=== PATIENT | female | born 1955 | race Caucasian/White ===

== ENCOUNTER → 2016-09-20 | Outpatient (CLI) | payer MEDICARE, OTHER ==
[2016-09-20 08:33] LABS: Basophils # (A) 0.1 k/uL (0-0.2); Basophils % (A) 1 %; CH 31.2; CHCM 32.4; Eosinophils # (A) 0.6 k/uL (0-0.7); Eosinophils % (A) 10 %; HCT 40.9 % (34.0-46.0); HDW 1.98; HGB 13.2 gm/dL (11.4-16.0); Luc # (Auto) 0.28; Luc % (Auto) 4; Lymphocytes # (A) 1.6 k/uL (1.0-4.8); Lymphocytes % (A) 24 %; MCH 31.2 pg (25.0-35.0); MCHC 32.3 g/dL (31.0-37.0); MCV 96.6 fL (80.0-100.0); Mean Platelet Volume 8.3; Monocytes # (A) 0.6 k/uL (0-1.0); Monocytes % (A) 10 %; Neutrophils # (A) 3.4 k/uL (1.3-7.7); Neutrophils % (A) 51 %; RBC 4.23 m/uL (3.80-5.40); RDW 12.3 % (11.5-15.5); WBC 6.6 k/uL (3.8-10.6); WBC (Perox) 6.64
[2016-09-20 11:15] LABS: ALT 29 U/L (9-52); AST 31 U/L (14-36); Alkaline Phosphatase 96 U/L (38-126); Anion Gap 13 mmol/L; Blood Urea Nitrogen 15 mg/dL (7-17); Calcium 9.7 mg/dL (8.4-10.2); Carbon Dioxide 29 mmol/L (22-30); Chloride 97 mmol/L (98-107); Glucose 77 mg/dL (74-99); Non-African American GFR(MDRD) >60 (>60 ml/min/1.73 sqM); Potassium 4.7 mmol/L (3.5-5.1); Sodium 139 mmol/L (137-145); Total Bilirubin 0.3 mg/dL (0.2-1.3); Total Protein 7.3 g/dL (6.3-8.2)
== END | disposition home or self-care (01) ==
LOC: LABWHC1 07:42
PROVIDERS: ATTEND Family Medicine
DX: E03.9 Hypothyroidism, unspecified (principal); E55.9 Vitamin D deficiency, unspecified; R56.9 Unspecified convulsions
CPT/HCPCS: 36415; 80053; 80156; 82306; 84439; 84443; 85025

== ENCOUNTER → 2016-10-06 | Outpatient (CLI) | payer MEDICARE, OTHER | LOC: LABWHC1 07:55 | PROVIDERS: ATTEND Psychiatry & Neurology Neurology | DX: G40.909 Epilepsy, unspecified, not intractable, without status epilepticus (principal) | CPT/HCPCS: 36415; 80156; 80177 ==

== ENCOUNTER → 2017-03-31 | Outpatient (CLI) | payer MEDICARE, OTHER ==
[2017-03-31 08:16] LABS: CH 31.2; CHCM 32.1; HCT 36.4 % (34.0-46.0); HDW 1.95; HGB 12.9 gm/dL (11.4-16.0); MCH 34.7 pg (25.0-35.0); MCHC 35.5 g/dL (31.0-37.0); MCV 97.7 fL (80.0-100.0); Mean Platelet Volume 7.2; RBC 3.72 m/uL (3.80-5.40); RDW 12.5 % (11.5-15.5); WBC 9.1 k/uL (3.8-10.6)
[2017-03-31 09:07] LABS: ALT 44 U/L (9-52); AST 30 U/L (14-36); Alkaline Phosphatase 113 U/L (38-126); Anion Gap 11 mmol/L; Blood Urea Nitrogen 18 mg/dL (7-17); Calcium 9.7 mg/dL (8.4-10.2); Carbamazepine (Tegretol) 11.8 ug/mL; Carbon Dioxide 27 mmol/L (22-30); Chloride 100 mmol/L (98-107); Cholesterol 224 mg/dL (<200); Glucose 77 mg/dL (74-99); HDL Cholesterol 79 mg/dL (40-60); Non-African American GFR(MDRD) >60 (>60 ml/min/1.73 sqM); Potassium 4.4 mmol/L (3.5-5.1); Sodium 138 mmol/L (137-145); Total Bilirubin 0.3 mg/dL (0.2-1.3); Total Protein 7.5 g/dL (6.3-8.2)
== END | disposition home or self-care (01) ==
LOC: LABWHC1 07:44
PROVIDERS: ATTEND Family Medicine
DX: Z00.01 Encounter for general adult medical examination with abnormal findings (principal); G40.909 Epilepsy, unspecified, not intractable, without status epilepticus
CPT/HCPCS: 36415; 80053; 80061; 80156; 80177; 82306; 85027

== ENCOUNTER → 2017-04-14 | Outpatient (CLI) | payer MEDICARE, OTHER ==
--- NOTE | 2017-04-14 11:29 | FL ---
EXAMINATION TYPE: FL barium swallow w video DATE OF EXAM: 04/14/2017 COMPARISON: NONE HISTORY: Dysphasia TECHNIQUE: Fluoroscopy. FINDINGS: Fluoroscopic guidance was provided for the procedure performed in conjunction with the [facility] pathology department. Please see complete report forthcoming from the Speech Pathology departmen t. Various consistencies from thin liquid to solids were administered. Fluoroscopy time 37 seconds Number of images: 0. No aspiration or penetration was evident. No significant pooling was observed in the vallecula. There was marked chest since he present during the consistencies utilized including honey thick and p udding thick consistencies. IMPRESSION: 1. Hesitancy of avulsion. 2. Exam limited to honey thick and pudding thick consistencies.
== END | disposition home or self-care (01) ==
LOC: RADFLMAIN 10:50
PROVIDERS: ATTEND Family Medicine
DX: R13.12 Dysphagia, oropharyngeal phase (principal)
CPT/HCPCS: 74230

== ENCOUNTER → 2017-09-29 | Outpatient (CLI) | payer MEDICARE, OTHER ==
[2017-09-29 08:16] LABS: Basophils # (A) 0.1 k/uL (0-0.2); Basophils % (A) 1 %; Eosinophils # (A) 0.7 k/uL (0-0.7); Eosinophils % (A) 10 %; HGB 13.1 gm/dL (11.4-16.0); Lymphocytes # (A) 1.6 k/uL (1.0-4.8); Lymphocytes % (A) 24 %; MCH 29.9 pg (25.0-35.0); MCHC 32.7 g/dL (31.0-37.0); MCV 91.5 fL (80.0-100.0); Mean Platelet Volume 7.3; Monocytes # (A) 0.5 k/uL (0-1.0); Monocytes % (A) 7 %; Neutrophils # (A) 3.7 k/uL (1.3-7.7); Neutrophils % (A) 56 %; Platelet Count 255 k/uL (150-450); RBC 4.37 m/uL (3.80-5.40); RDW 12.6 % (11.5-15.5); WBC 6.6 k/uL (3.8-10.6)
[2017-09-29 08:55] LABS: ALT 20 U/L (9-52); AST 27 U/L (14-36); Alkaline Phosphatase 96 U/L (38-126); Anion Gap 8 mmol/L; Blood Urea Nitrogen 15 mg/dL (7-17); Calcium 9.6 mg/dL (8.4-10.2); Carbamazepine (Tegretol) 11.6 ug/mL; Carbon Dioxide 29 mmol/L (22-30); Chloride 99 mmol/L (98-107); Glucose 118 mg/dL (74-99); Potassium 4.2 mmol/L (3.5-5.1); Sodium 136 mmol/L (137-145); Total Bilirubin 0.2 mg/dL (0.2-1.3); Total Protein 6.9 g/dL (6.3-8.2)
[2017-09-29 09:08] LABS: T4, Free (Free Thyroxine) 0.83 ng/dL (0.78-2.19)
== END | disposition home or self-care (01) ==
LOC: LABWHC1 07:28
PROVIDERS: ATTEND Family Medicine
DX: E03.9 Hypothyroidism, unspecified (principal); E55.9 Vitamin D deficiency, unspecified; G40.909 Epilepsy, unspecified, not intractable, without status epilepticus
CPT/HCPCS: 36415; 80053; 80156; 82306; 84439; 84443; 85025

== ENCOUNTER 2017-11-12 13:57 | Emergency (ER) | payer MEDICARE ==
[2017-11-12 14:21] VITALS: TEMP 97.1
[2017-11-12] MEDS ORDERED: ALBUTEROL NEBULIZED 2.5 MG/3 ML INHALATION STA (14:42)
--- NOTE | 2017-11-12 14:47 | ED ---
URI HPI - General Chief Complaint: Upper Respiratory Infection Stated Complaint: Wheezing,Cough Time Seen by Provider: 11/12/17 14:23 Source: patient, Caregiver Mode of arrival: wheelchair Limitations: physical limitation - History of Present Illness Initial Comments: History is from both the patient and a caregiver. This patient is 62-year-old woman reportedly has history of asthma, presenting to be evaluated for wheezing. Patient has had to 3 days of cough and wheezing. Caregiver reports that they have use the albuterol at home, but patient continues to have some wheezing. There were concerned that she has had previous episodes of pneumonia. She has not registered a fever. Cough is not productive. The patient is denying pain or dyspnea. No change in bowel movements, nausea or vomiting. No changes in urination. Patient denies pain or swelling of the extremities MD Complaint: cough, other (Wheezing) Onset/Timin -: days(s) Severity: moderate Consistency: constant Improves With: nothing Worsens With: nothing Associated Symptoms: denies other symptoms Treatments Prior to Arrival: other (Albuterol) - Related Data Home Medications Medication Instructions Recorded Confirmed carBAMazepine [TEGretol XR] 100 mg PO Q12H 03/16/15 05/16/17 carBAMazepine [carBAMazepine XR] 400 mg PO Q12HR 03/16/15 05/16/17 Albuterol Nebulized [Ventolin 2.5 mg INHALATION RT-Q4H PRN 05/16/17 05/16/17 Nebulized] Budesonide [Pulmicort] 0.5 mg PO RT-BID 05/16/17 05/16/17 Calcium Citrate/Vitamin D3 1 tab PO DAILY 05/16/17 05/16/17 [Calcitrate + Vit D Caplet] Cholecalciferol [Vitamin D3] 400 unit PO DAILY 05/16/17 05/16/17 Levothyroxine Sodium [Synthroid] 75 mcg PO DAILY 05/16/17 05/16/17 Nystatin 100,000 Unit/gm Oint 1 applic TOPICAL BID 05/16/17 05/16/17 [Mycostatin Oint] Polyethylene Glycol 3350 [Miralax] 17 gm PO DAILY 05/16/17 05/16/17 Simplythick 15 Gm Oral Gel 1 dose PO DIRECTED 05/16/17 05/16/17 levETIRAcetam [Keppra] 500 mg PO Q12HR 05/16/17 05/16/17 metroNIDAZOLE 0.75% CREAM 1 applic TOPICAL BID 05/16/17 05/16/17 [Metrocream] Previous Rx's Medication Instructions Recorded Levofloxacin [Levaquin] 500 mg PO DAILY #5 tab 05/16/17 predniSONE 60 mg PO DAILY #30 tab 11/12/17 Allergies Allergy/AdvReac Type Severity Reaction Status Date / Time Penicillins Allergy Unknown Verified 11/12/17 14:21 Review of Systems ROS Statement: Those systems with pertinent positive or pertinent negative responses have been documented in the HPI. ROS Other: All systems not noted in ROS Statement are negative. Constitutional: Denies: fever ENT: Denies: throat pain Respiratory: Reports: cough, wheezes. Denies: dyspnea, hemoptysis Gastrointestinal: Denies: abdominal pain, vomiting, diarrhea Genitourinary: Denies: dysuria, hematuria Neurological: Denies: headache Past Medical History Past Medical History: Asthma, Dementia, Seizure Disorder Additional Past Medical History / Comment(s): mental retardation, quadriplegia History of Any Multi-Drug Resistant Organisms: None Reported Past Surgical History: No Surgical Hx Reported Past Psychological History: No Psychological Hx Reported Smoking Status: Never smoker Past Alcohol Use History: None Reported Past Drug Use History: None Reported General Exam Limitations: physical limitation General appearance: alert, in no apparent distress, other (Patient is a pleasant and interactive woman, does appear well-hydrated and nontoxic.) Head exam: Present: atraumatic ENT exam: Present: normal oropharynx, mucous membranes moist Respiratory exam: Present: wheezes, rhonchi, other (The patient has good air entry but does have a trace of expiratory wheeze and there are diffuse rhonchi) . Absent: respiratory distress, rales, stridor, accessory muscle use, decreased breath sounds, prolonged expiratory Cardiovascular Exam: Present: regular rate, normal rhythm, normal heart sounds. Absent: systolic murmur, diastolic murmur, rubs, gallop GI/Abdominal exam: Present: soft. Absent: tenderness, guarding Extremities exam: Present: normal inspection, normal capillary refill. Absent: pedal edema, calf tenderness Neurological exam: Present: alert Skin exam: Present: warm, dry, intact, normal color. Absent: rash Course Vital Signs 11/12/17 11/12/17 11/12/17 14:17 15:32 15:40 Temperature 97.1 F L Pulse Rate 75 69 72 Respiratory 22 Rate Blood Pressure 154/90 O2 Sat by Pulse 98 Oximetry 11/12/17 15:58 Temperature Pulse Rate 69 Respiratory 20 Rate Blood Pressure 159/67 O2 Sat by Pulse 97 Oximetry Medical Decision Making - Medical Decision Making Patient is a 62-year-old woman presenting with cough and wheezing. Patient clinically appearing to have bronchitis. Given the multiple previous pneumonias , chest x-ray obtained which is negative. Discussed appropriate further care and follow-up as well as return parameters with patient and caregiver. Disposition Clinical Impression: Bronchitis Disposition: HOME SELF-CARE Condition: Good Instructions: Acute Bronchitis (ED) Prescriptions: predniSONE 60 mg PO DAILY #30 tab Is patient prescribed a controlled substance at d/c from ED?: No Referrals: Sarthak Chinchilla DO [Primary Care Provider] - 1-2 days
--- NOTE | 2017-11-12 15:26 | XR ---
EXAMINATION TYPE: XR chest 2V DATE OF EXAM: 11/12/2017 COMPARISON: May 16, 2017 HISTORY: Cough TECHNIQUE: Frontal and lateral views of the chest are obtained. FINDINGS: There is no focal air space opacity, pleural effusion, or pneumothorax seen. The cardiac silhouette size is within normal limits. The osseous structures are intact. Patient's overlying sof t tissues obscure the left lower chest on the AP view. IMPRESSION: No acute cardiopulmonary process.
[2017-11-12] MEDS ORDERED: predniSONE 20 MG TAB PO STA (15:38)
[2017-11-12 16:01] VITALS: BP 159/67; PULSE 69; RESP 20
== END 2017-11-12 16:00 | disposition home or self-care (01) ==
LOC: EC 13:57
DX: J45.909 Unspecified asthma, uncomplicated (principal); G40.909 Epilepsy, unspecified, not intractable, without status epilepticus; Z79.52 Long term (current) use of systemic steroids; Z79.899 Other long term (current) drug therapy; Z88.0 Allergy status to penicillin
CPT/HCPCS: 94640; 71046; 99283; J7512

== ENCOUNTER → 2017-11-14 | Outpatient (CLI) | payer MEDICARE | END | disposition home or self-care (01) | LOC: LABWHC1 07:48 | PROVIDERS: ATTEND Psychiatry & Neurology Neurology | DX: G40.009 Localization-related (focal) (partial) idiopathic epilepsy and epileptic syndromes with seizures of localized onset, not intractable, without status epilepticus (principal) | CPT/HCPCS: 36415; 80177 ==

== ENCOUNTER → 2018-04-13 | Outpatient (CLI) | payer MEDICARE, OTHER ==
--- NOTE | 2018-04-13 18:52 | XR ---
EXAMINATION TYPE: XR chest 2V DATE OF EXAM: 04/13/2018 COMPARISON: 11/12/2017 HISTORY: Cough and congestion TECHNIQUE: Frontal and lateral views of the chest are obtained. FINDINGS: There is mild linear density in the lower lung gaviria. Heart size is normal. There is no h eart failure. Bony thorax is intact. IMPRESSION: Basilar patchy atelectasis is the same or increased compared to old exam. No heart failu re.
== END ==
LOC: RADXRMAIN 16:27
PROVIDERS: ATTEND Internal Medicine Critical Care Medicine
DX: J98.11 Atelectasis (principal)
CPT/HCPCS: 71046

== ENCOUNTER → 2018-04-27 | Outpatient (CLI) | payer MEDICARE, OTHER ==
--- NOTE | 2018-04-30 07:55 | MM ---
Reason for exam: screening (asymptomatic). Last mammogram was performed 2 years and 1 month ago. History: Patient is postmenopausal. Cyst aspiration of the left breast. Physical Findings: A clinical breast exam by your physician is recommended on an annual basis and results should be correlated with mammographic findings. MG Screening Mammo w CAD Bilateral CC and MLO view(s) were taken. Prior study comparison: March 18, 2016, bilateral MG screening mammo w CAD. December 04, 2014, bilateral MG screening mammo w CAD. The breast tissue is heterogeneously dense. This may lower the sensitivity of mammography. There is chronic nodularity bilaterally. No significant changes when compared with prior studies. ASSESSMENT: Benign, BI-RAD 2 RECOMMENDATION: Routine screening mammogram of both breasts in 1 year.
== END | disposition home or self-care (01) ==
LOC: RADMAMWWP 10:35
PROVIDERS: ATTEND Family Medicine
DX: Z12.31 Encounter for screening mammogram for malignant neoplasm of breast (principal)
CPT/HCPCS: 77067

== ENCOUNTER → 2018-09-12 | Outpatient (CLI) | payer MEDICARE, OTHER ==
--- NOTE | 2018-09-12 10:29 | US ---
EXAMINATION TYPE: US abdomen complete DATE OF EXAM: 09/12/2018 COMPARISON: NONE CLINICAL HISTORY: N20.9 Urinary stone,N39.42 Urinary incontinence. Patient in wheelchair, unable to w alk, or verbally communicate EXAM MEASUREMENTS: Liver Length: 15.4 cm Gallbladder Wall: 0.3 cm CBD: 0.3 cm Spleen: NOT SEEN DUE TO BOWEL GAS Right Kidney: 8.3 x 3.9 x 4.9 cm Left Kidney: 9.6 x 3.8 x 5.8 cm *very challenging patient due to lack of mobility and unable to verbally communicate, large body habi tus and bowel gas also limits exam Pancreas: limited views Liver: very limited views appear wnl Gallbladder: multiple stones seen with no wall thickening Evidence for sonographic Casas's sign: unknown CBD: wnl Spleen: not seen due to bowl gas and lack of mobility to move patient Right Kidney: wnl Left Kidney: wnl Upper IVC: wnl Abd Aorta: wnl IMPRESSION: 1. Limited exam as discussed above demonstrates cholelithiasis. Wall thickness at the upper limits of normal. No biliary obstruction.
--- NOTE | 2018-09-12 10:46 | XR ---
EXAMINATION TYPE: XR KUB DATE OF EXAM: 09/12/2018 COMPARISON: None INDICATION: Urinary calculus TECHNIQUE: Single view abdomen supine view FINDINGS: There is nonspecific bowel gas pattern with air within colon and some small bowel loops. Fecal debris is at the level the rectum Psoas margins are normal. No organomegaly is present. Phleboliths are within the left hemipelvis. Distal ureteral stones are considered less likely but wit hin the differential. Multiple granuloma. Within the bilateral soft tissues. IMPRESSION: 1. Nonspecific abdomen. 2. Suspected phleboliths within the left hemipelvis. Distal left ureteral stones are not entirely exc luded. Correlate with symptoms.
== END ==
LOC: RADUSWWP 09:58
PROVIDERS: ATTEND Urology
DX: N20.9 Urinary calculus, unspecified (principal); N39.42 Incontinence without sensory awareness; Z88.0 Allergy status to penicillin
CPT/HCPCS: 74018; 76700

== ENCOUNTER 2018-09-15 08:04 | Inpatient (IN) | payer MEDICARE, OTHER ==
[2018-09-15] MEDS ORDERED: SODIUM CHLORIDE 0.9% 500 ML 500 ML IV ONE (08:10)
--- NOTE | 2018-09-15 08:15 | ED ---
General Adult HPI - General Stated complaint: Seizure Time Seen by Provider: 09/15/18 08:04 Source: RN notes reviewed - History of Present Illness Initial comments: This is a 63-year-old female who presents emergency Department with a past medical history significant for mental retardation, seizures and quadriplegia. EMS was called seen because the patient was in her room and less responsive than normal and drooling out of one side of her mouth. When EMS arrived she was at her baseline according to the custodial. Patient however since stiffened up for about 15 seconds and then shortly thereafter was back to her baseline and speak. According to EMS on the way and she can't stop talking but there was no stiffening of the body or any movements that were indicative of a seizure. No one has any history of recent fever. There's been no history of any difficulty breathing. There's been no history of any recent trauma. Patient is unable to give any history. We are told the patient's baseline is only alert and oriented to self she can follow simple commands. She can give us no history and there is no family or caregiver with her - Related Data Home Medications Medication Instructions Recorded Confirmed Albuterol Nebulized [Ventolin 2.5 mg INHALATION RT-Q4H PRN 05/16/17 09/15/18 Nebulized] Budesonide [Pulmicort] 0.5 mg PO RT-BID 05/16/17 09/15/18 Calcium Citrate/Vitamin D3 1 tab PO DAILY 05/16/17 09/15/18 [Calcitrate + Vit D Caplet] Levothyroxine Sodium [Synthroid] 75 mcg PO DAILY 05/16/17 09/15/18 Nystatin 100,000 Unit/gm Oint 1 applic TOPICAL DAILY 05/16/17 09/15/18 [Mycostatin Oint] Polyethylene Glycol 3350 [Miralax] 17 gm PO DAILY 05/16/17 09/15/18 Simplythick 15 Gm Oral Gel 1 dose PO DIRECTED 05/16/17 09/15/18 Cholecalciferol [Vitamin D3] 1,000 unit PO DAILY 09/15/18 09/15/18 Eslicarbazepine Acetate [Aptiom] 800 mg PO DAILY 09/15/18 09/15/18 Levofloxacin [Levaquin] 1,000 mg PO Q12H 09/15/18 09/15/18 Soolantra 1% Cream 1 applic TOPICAL DAILY 09/15/18 09/15/18 Allergies Allergy/AdvReac Type Severity Reaction Status Date / Time Penicillins Allergy Unknown Verified 09/15/18 08:22 Review of Systems ROS Statement: Those systems with pertinent positive or pertinent negative responses have been documented in the HPI. ROS Other: All systems not noted in ROS Statement are negative. Past Medical History Past Medical History: Asthma, Dementia, Seizure Disorder Additional Past Medical History / Comment(s): mental retardation, quadriplegia History of Any Multi-Drug Resistant Organisms: None Reported Past Surgical History: No Surgical Hx Reported Past Psychological History: No Psychological Hx Reported Smoking Status: Never smoker Past Alcohol Use History: None Reported Past Drug Use History: None Reported General Exam - General Exam Comments Initial Comments: GENERAL: Patient is well-developed and well-nourished. Patient is nontoxic and well- hydrated and is in no acute distress. Patient's head is tilted to the left which EMS states the custodial says is normal. ENT: Neck is soft and supple. No significant lymphadenopathy is noted. Neck has full range of motion without eliciting any pain. EYES: The sclera were anicteric and conjunctiva were pink and moist. Extraocular movements were intact and pupils were equal round and reactive to light. Eyelids were unremarkable. PULMONARY: Unlabored respirations. Good breath sounds bilaterally. No audible rales rhonchi or wheezing was noted. CARDIOVASCULAR: There is a regular rate and rhythm without any murmurs gallops or rubs. ABDOMEN: Soft and nontender with normal bowel sounds. SKIN: Skin is clear with no lesions or rashes and otherwise unremarkable. NEUROLOGIC: Patient is alert and difficult to assess orientation because she is not currently speaking. Cranial nerves are unable to be fully assessed because patient is not following commands with her facial movements. Patient is moving all 4 extremities she has good machine coil assembler and equal machine coil assembler bilaterally. Patient moved both legs and lift them off the bed equally but could not get her to do any more complex movements. Could not tell if she had good sensory because she did not respond. MUSCULOSKELETAL: Normal extremities with adequate strength and full range of motion. No lower extremity swelling or edema. No calf tenderness. PSYCHIATRIC: Unable to assess Course Vital Signs 09/15/18 09/15/18 09/15/18 08:11 09:04 10:06 Temperature 97.5 F L Pulse Rate 82 81 80 Respiratory 16 18 18 Rate Blood Pressure 146/94 94/67 103/45 O2 Sat by Pulse 96 95 98 Oximetry Medical Decision Making - Medical Decision Making EKG shows a normal sinus rhythm at 81 bpm DC interval is on a 46 dresses 80 QT interval 380 QTC is 441. There is some ST segment elevation in leads 1 and aVL. I called Dr. Becerril and indicated to him that we had to wheeze and some ST segment elevation at this point in time he would awake to wait and see with cardiac enzymes show. Dr. Becerril came to the emergency department to see the EKG and determined no intervention at this time. Dr. Becerril came back down to see the patient once the troponin came back elevated. He determined that the patient was going to be treated medically. Heparin was started for the patient aspirin is given Nitropaste was placed. I spoke with Dr. Keenan agreed to admit the patient admitted the patient consult to cardiology I continue nitro paste heparin and aspirin on the floor. - Lab Data Result diagrams: 09/15/18 08:18 09/15/18 08:18 Lab Results 09/15/18 09/15/18 09/15/18 Range/Units 08:18 08:18 08:18 WBC 9.8 (3.8-10.6) k/uL RBC 3.73 L (3.80-5.40) m/uL Hgb 11.0 L (11.4-16.0) gm/dL Hct 33.6 L (34.0-46.0) % MCV 90.2 (80.0-100.0) fL MCH 29.5 (25.0-35.0) pg MCHC 32.7 (31.0-37.0) g/dL RDW 13.1 (11.5-15.5) % Plt Count 244 (150-450) k/uL Neutrophils % 70 % Lymphocytes % 11 % Monocytes % 11 % Eosinophils % 6 % Basophils % 1 % Neutrophils # 6.9 (1.3-7.7) k/uL Lymphocytes # 1.0 (1.0-4.8) k/uL Monocytes # 1.1 H (0-1.0) k/uL Eosinophils # 0.6 (0-0.7) k/uL Basophils # 0.1 (0-0.2) k/uL PT 9.6 (9.0-12.0) sec INR 0.9 (<1.2) APTT 18.0 L (22.0-30.0) sec Sodium 136 L (137-145) mmol/L Potassium 4.5 (3.5-5.1) mmol/L Chloride 103 (98-107) mmol/L Carbon Dioxide 24 (22-30) mmol/L Anion Gap 9 mmol/L BUN 18 H (7-17) mg/dL Creatinine 0.66 (0.52-1.04) mg/dL Est GFR (CKD-EPI)AfAm >90 (>60 ml/min/1.73 sqM) Est GFR (CKD-EPI)NonAf >90 (>60 ml/min/1.73 sqM) Glucose 113 H (74-99) mg/dL POC Glucose (mg/dL) (75-99) mg/dL POC Glu Community Cultural Development Officer ID Calcium 9.1 (8.4-10.2) mg/dL Total Bilirubin 0.5 (0.2-1.3) mg/dL AST 51 H (14-36) U/L ALT 51 (9-52) U/L Alkaline Phosphatase 76 (38-126) U/L Troponin I (0.000-0.034) ng/mL Total Protein 6.0 L (6.3-8.2) g/dL Albumin 3.2 L (3.5-5.0) g/dL 09/15/18 09/15/18 Range/Units 08:18 08:27 WBC (3.8-10.6) k/uL RBC (3.80-5.40) m/uL Hgb (11.4-16.0) gm/dL Hct (34.0-46.0) % MCV (80.0-100.0) fL MCH (25.0-35.0) pg MCHC (31.0-37.0) g/dL RDW (11.5-15.5) % Plt Count (150-450) k/uL Neutrophils % % Lymphocytes % % Monocytes % % Eosinophils % % Basophils % % Neutrophils # (1.3-7.7) k/uL Lymphocytes # (1.0-4.8) k/uL Monocytes # (0-1.0) k/uL Eosinophils # (0-0.7) k/uL Basophils # (0-0.2) k/uL PT (9.0-12.0) sec INR (<1.2) APTT (22.0-30.0) sec Sodium (137-145) mmol/L Potassium (3.5-5.1) mmol/L Chloride (98-107) mmol/L Carbon Dioxide (22-30) mmol/L Anion Gap mmol/L BUN (7-17) mg/dL Creatinine (0.52-1.04) mg/dL Est GFR (CKD-EPI)AfAm (>60 ml/min/1.73 sqM) Est GFR (CKD-EPI)NonAf (>60 ml/min/1.73 sqM) Glucose (74-99) mg/dL POC Glucose (mg/dL) 138 H (75-99) mg/dL POC Glu Community Cultural Development Officer ID Charissa Pires Calcium (8.4-10.2) mg/dL Total Bilirubin (0.2-1.3) mg/dL AST (14-36) U/L ALT (9-52) U/L Alkaline Phosphatase (38-126) U/L Troponin I 2.390 H* (0.000-0.034) ng/mL Total Protein (6.3-8.2) g/dL Albumin (3.5-5.0) g/dL Critical Care Time Critical Care Time: Yes Total Critical Care Time: 35 Disposition Clinical Impression: STEMI (ST elevation myocardial infarction) Disposition: ADMITTED IP TO THIS HOSP Referrals: Sarthak Chinchilla DO [Primary Care Provider] - 1-2 days Time of Disposition: 10:25
[2018-09-15 08:29] LABS: Glucose,Whole Blood 138 mg/dL (75-99)
[2018-09-15 08:41] LABS: Basophils # (A) 0.1 k/uL (0-0.2); Basophils % (A) 1 %; Eosinophils # (A) 0.6 k/uL (0-0.7); Eosinophils % (A) 6 %; HCT 33.6 % (34.0-46.0); Lymphocytes % (A) 11 %; MCH 29.5 pg (25.0-35.0); MCHC 32.7 g/dL (31.0-37.0); MCV 90.2 fL (80.0-100.0); Mean Platelet Volume 7.9; Monocytes # (A) 1.1 k/uL (0-1.0); Monocytes % (A) 11 %; Neutrophils # (A) 6.9 k/uL (1.3-7.7); Neutrophils % (A) 70 %; Platelet Count 244 k/uL (150-450); RBC 3.73 m/uL (3.80-5.40); RDW 13.1 % (11.5-15.5); WBC 9.8 k/uL (3.8-10.6)
[2018-09-15 08:51] LABS: ALT 51 U/L (9-52); AST 51 U/L (14-36); Albumin 3.2 g/dL (3.5-5.0); Alkaline Phosphatase 76 U/L (38-126); Blood Urea Nitrogen 18 mg/dL (7-17); Calcium 9.1 mg/dL (8.4-10.2); Carbon Dioxide 24 mmol/L (22-30); Glucose 113 mg/dL (74-99); Total Bilirubin 0.5 mg/dL (0.2-1.3)
[2018-09-15 08:56] LABS: INR 0.9 (<1.2); Prothrombin Time 9.6 sec (9.0-12.0)
[2018-09-15 09:14] LABS: Anion Gap 9 mmol/L; Chloride 103 mmol/L (98-107); Potassium 4.5 mmol/L (3.5-5.1); Sodium 136 mmol/L (137-145)
--- NOTE | 2018-09-15 09:35 | CT ---
EXAMINATION TYPE: CT brain wo con DATE OF EXAM: 09/15/2018 HISTORY: seizure, altered mental status CT DLP: 1145.4 mGycm. Automated Exposure Control for Dose Reduction was Utilized. TECHNIQUE: CT scan of the head is performed without contrast. COMPARISON: CT brain May 16, 2017. FINDINGS: There is no acute intracranial hemorrhage or midline shift identified. There is diffuse v entricular and sulcal prominence consistent with diffuse age-related cerebral atrophy. More prominen t atrophy of the cerebellum is redemonstrated. Cannot exclude posterior fossa congenital anomaly, cor relate clinically. There is low-attenuation in the periventricular white matter consistent with chron ic small vessel ischemic change. Areas of old infarct or encephalomalacia bilateral higher frontal lo bes are redemonstrated. There is right parietal caron hole with catheter terminating in the right fron lianet white matter anterior to right lateral ventricle axial image 44 unchanged in position and appeara nce from prior CT. Encephalomalacia along the catheter remains present. The globes are intact and the visualized sinuses are clear. Nasal septum remains deviated to left of midline. IMPRESSION: No acute intracranial hemorrhage or midline shift. There is persistent mild to moderate diffuse age-related cerebral atrophy and advanced cerebellar atrophy and moderate chronic small vess el ischemic change with areas of encephalomalacia high bilateral frontal lobes and right parietal lob e all redemonstrated. No significant change from prior CT.
--- NOTE | 2018-09-15 09:37 | XR ---
EXAMINATION TYPE: XR chest 2V DATE OF EXAM: 09/15/2018 COMPARISON: Chest x-ray April 13, 2018 HISTORY: History of asthma with seizure and weakness. TECHNIQUE: Frontal and lateral views of the chest are obtained. FINDINGS: There is persistent left basilar opacity. Right lung remains clear except for tiny pleura l effusion seen on lateral view as there is new blunting of posterior costophrenic angle. The cardiac silhouette size is stable and mildly enlarged. Increased patient rotation on current study noted. Underlying scoliotic curvature is present. IMPRESSION: Persistent cardiomegaly with small left and tiny right pleural effusions both increased in size from prior x-ray, redemonstration of associated left basilar atelectasis and/or infiltrate.
[2018-09-15] MEDS ORDERED: ASPIRIN 81 MG PO STA (09:49)
[2018-09-15] MEDS ORDERED: HEPARIN SODIUM,PORCINE 5,000 UNIT/ML 1 ML VIAL IV ONE (09:49)
[2018-09-15] MEDS: ASPIRIN 81 MG PO STA ×2 (09:50→09:56)
[2018-09-15] MEDS ORDERED: NITROGLYCERIN OINT 1 INCH/GM PACKET TOPICAL STA (09:58)
[2018-09-15] MEDS ORDERED: ASPIRIN 300 MG SUPP RECTAL STA (09:58)
[2018-09-15] MEDS ORDERED: NITROGLYCERIN SL TABS 0.4 MG TAB SUBLINGUAL PRN (10:27)
[2018-09-15] MEDS: SODIUM CHLORIDE 0.9% 500 ML 500 ML IV SCH (10:59)
[2018-09-15] MEDS: HEPARIN SOD,PORK IN 0.45% NACL 25,000 UNIT in 0.45% NACL 1 250ML.BAG IV SCH (10:59)
[2018-09-15] MEDS ORDERED: [UNRECOGNIZED DRUG - OTHER] PO PRN (14:30)
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
[2018-09-15] MEDS: NITROGLYCERIN OINT 1 INCH/GM PACKET TOPICAL SCH (18:53)
[2018-09-15] MEDS: METOPROLOL TARTRATE 5 MG/5 ML VIAL IVP SCH ×2 (18:53→21:17)
[2018-09-15] MEDS: BUDESONIDE 0.5 MG/2 ML NEBU INHALATION SCH (19:20)
[2018-09-15] MEDS: FUROSEMIDE 10 MG/ML 2 ML VIAL IV SCH (20:34)
[2018-09-15] MEDS ORDERED: DILTIAZEM DRIP BOLUS FROM BAG 1 MG SOLN IV ONE (21:14)
[2018-09-15] MEDS ORDERED: DILTIAZEM 125 MG in SODIUM CHLORIDE 0.9% 100 ML IV SCH (21:15)
[2018-09-15 21:45] LABS: Glucose,Whole Blood 111 mg/dL (75-99)
[2018-09-15] MEDS: ALBUTEROL NEBULIZED 2.5 MG/3 ML INHALATION PRN (22:41)
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
[2018-09-15 23:03] LABS: Appearance,Urine Turbid (Clear); Bacteria,Urine Many /hpf; Bilirubin,Urine Negative (Negative); Blood,Urine Large (Negative); Color,Urine Yellow; Glucose,Urine (UA) Negative (Negative); Hyaline Casts,Urine 42 /lpf (0-2); Ketones,Urine Negative (Negative); Leukocyte Esterase,Urine Large (Negative); Mucus,Urine Moderate /hpf; Nitrite,Urine Negative (Negative); Protein,Urine 2+ (Negative); RBC,Urine >182 /hpf (0-5); Urobilinogen,Urine <2.0 mg/dL (<2.0)
[2018-09-15] MEDS ORDERED: HEPARIN SODIUM,PORCINE 5,000 UNIT/ML 1 ML VIAL IV PRN (23:58)
[2018-09-16] MEDS: NITROGLYCERIN OINT 1 INCH/GM PACKET TOPICAL SCH ×5 (00:42→23:42)
[2018-09-16] MEDS ORDERED: AMIODARONE 360 MG in DEXTROSE 5% IN WATER 200 ML IV ONE ×2 (01:35)
[2018-09-16] MEDS ORDERED: DEXTROSE 5% IN WATER 100 ML with AMIODARONE 150 MG IV ONE (01:35)
[2018-09-16] MEDS: LORazepam 2 MG/ML INJ IV PRN ×2 (02:34→18:35)
[2018-09-16] MEDS: METOPROLOL TARTRATE 5 MG/5 ML VIAL IVP SCH ×4 (05:51→23:42)
[2018-09-16] MEDS: LEVOTHYROXINE 75 MCG TAB PO SCH (05:52)
[2018-09-16 06:41] LABS: Basophils % (A) 0 %; Eosinophils # (A) 0.2 k/uL (0-0.7); Eosinophils % (A) 2 %; HCT 31.7 % (34.0-46.0); HGB 10.1 gm/dL (11.4-16.0); Lymphocytes # (A) 1.2 k/uL (1.0-4.8); Lymphocytes % (A) 12 %; MCH 29.4 pg (25.0-35.0); MCHC 31.9 g/dL (31.0-37.0); MCV 92.1 fL (80.0-100.0); Mean Platelet Volume 7.1; Monocytes % (A) 9 %; Neutrophils # (A) 7.9 k/uL (1.3-7.7); Neutrophils % (A) 75 %; Platelet Count 264 k/uL (150-450); RBC 3.44 m/uL (3.80-5.40); RDW 13.3 % (11.5-15.5); WBC 10.5 k/uL (3.8-10.6)
[2018-09-16] MEDS: BUDESONIDE 0.5 MG/2 ML NEBU INHALATION SCH ×2 (07:23→19:14)
[2018-09-16] MEDS: ALBUTEROL NEBULIZED 2.5 MG/3 ML INHALATION PRN ×2 (07:23→19:14)
[2018-09-16 07:28] LABS: Calcium 9.1 mg/dL (8.4-10.2); Magnesium 2.1 mg/dL (1.6-2.3); Phosphorus 3.6 mg/dL (2.5-4.5); Potassium 4.6 mmol/L (3.5-5.1)
--- NOTE | 2018-09-16 08:02 | XR ---
EXAMINATION TYPE: XR chest 1V DATE OF EXAM: 09/16/2018 COMPARISON: 09/15/2018 HISTORY: 63-year-old female with shortness of breath TECHNIQUE: Single frontal view of the chest is obtained. FINDINGS: Leftward patient rotation alters the normal cardiomediastinal contours. The heart remains mildly enla rged with diffuse interstitial prominence. Continued small left pleural effusion with left basilar op acity. IMPRESSION: 1. Correlate for continued mild CHF with pulmonary vascular congestion. 2. Continued small left pleural effusion with adjacent atelectasis and/or consolidation.
[2018-09-16] MEDS: FUROSEMIDE 10 MG/ML 2 ML VIAL IV SCH ×2 (08:19→21:54)
[2018-09-16] MEDS: AMIODARONE 300 MG in DEXTROSE 5% IN WATER 250 ML IV SCH ×6 (08:19→23:44)
[2018-09-16] MEDS: NOREPINEPHRINE 4 MG in SODIUM CHLORIDE 0.9% 250 ML IV SCH ×2 (08:20→12:11)
[2018-09-16] MEDS: SOOLANTRA 1% TOPICAL SCH (08:21)
[2018-09-16] MEDS: NYSTATIN 100,000 UNIT/GM OINT 30 GM TUBE TOPICAL SCH (08:21)
[2018-09-16] MEDS: PANTOPRAZOLE 40 MG/10 ML VIAL IV SCH (08:23)
[2018-09-16] MEDS ORDERED: ASPIRIN 325 MG TAB PO SCH (09:00)
[2018-09-16] MEDS ORDERED: ASPIRIN 300 MG SUPP RECTAL SCH (09:00)
[2018-09-16] MEDS: POLYETHYLENE GLYCOL 3350 17 GM POWD.PACK PO SCH (09:02)
[2018-09-16] MEDS: HEPARIN SOD,PORK IN 0.45% NACL 25,000 UNIT in 0.45% NACL 1 250ML.BAG IV SCH (09:53)
[2018-09-16] MEDS: levETIRAcetam IV 1,000 MG in SALINE 1 100ML.BAG IVPB SCH ×2 (09:53→21:54)
[2018-09-16] MEDS: ASPIRIN 325 MG TAB PO SCH (10:09)
[2018-09-16] MEDS: ESLICARBAZEPINE ACETATE 800 MG PO SCH (10:09)
--- NOTE | 2018-09-16 10:51 | P.PN ---
Subjective Progress Note Date: 09/16/18 This is 63-year-old female with mental retardation was admitted to the hospital with change in mental status. She was found to have evidence of some ischemic EKG changes and abnormal troponin values consistent with myocardial infarction. Echo Cardigan showed hypokinesis of the mid anterior wall with an ejection fraction close to 50%. Yesterday patient went into bouts of atrial fibrillation with rapid ventricular response. Patient was started on IV amiodarone and also IV Cardizem. Patient is in sinus rhythm. We will discontinue IV Cardizem and discontinue IV amiodarone after the current therapies done. She'll continue on IV Lopressor 2.5 mg IV every 6 hours. Patient is still not able to take anything by mouth. We'll continue aspirin rectally. Patient is on Nitropaste. Once on her swallow evaluation is done. We can start her on by mouth medications. Patient also needs lipid-lowering agent. Chest x-ray showed mild vascular changes consistent with CHF. Patient is on IV Lasix Objective - Vital Signs Vital signs: Vital Signs Temp 99.2 F 09/16/18 08:00 Pulse 68 09/16/18 10:00 Resp 18 09/16/18 10:00 BP 107/62 09/16/18 10:00 Pulse Ox 98 09/16/18 10:00 Intake & Output 09/15/18 09/16/18 09/16/18 18:59 06:59 18:59 Intake Total 0 629.63 406.620 Output Total 255 735 Balance 0 374.63 -328.380 Weight 79.5 kg 80 kg Intake: IV 500 230 Dextrose 5% in Water 100 100 ml @ 618 mls/hr IV .Q10M ONE with Amiodarone 150 mg Rx#:[id number] Heparin Sod,Pork in 0.45% 80 NaCl 25,000 unit In 0.45 % NaCl 1 250ml.bag @ 11.5 UNITS/KG/HR 10.01 mls/hr IV .Q24H GRISELDA Rx#: [id number] Sodium Chloride 0.9% 500 320 80 ml 500 ml @ 20 mls/hr IV .Q24H GRISELDA Rx#:[id number] cefTRIAXone 1 gm In 50 Sodium Chloride 0.9% 50 ml @ 100 mls/hr IVPB Q24H GRISELDA Rx#:[id number] levETIRAcetam IV 1,000 mg 100 In Saline 1 100ml.bag @ 400 mls/hr IVPB Q12HR GRISELDA Rx#:[id number] Intake, IV Titration 129.63 176.620 Amount Diltiazem 125 mg In 56.25 Sodium Chloride 0.9% 100 ml @ 10 MG/HR 10 mls/hr IV .[id number] GRISELDA Rx#: [id number] Heparin Sod,Pork in 0.45% 129.63 120.370 NaCl 25,000 unit In 0.45 % NaCl 1 250ml.bag @ 11.5 UNITS/KG/HR 10.01 mls/hr IV .Q24H GRISELDA Rx#: [id number] Oral 0 Output: Urine 255 735 Other: Voiding Method Incontinent Indwelling Catheter Indwelling Catheter # Voids 1 - Exam GENERAL EXAM: Patient is awake but doesn't communicate HEENT: Normocephalic. Normal reaction of pupils, equal size, normal range of extraocular motion. No erythema or exudates in the throat. NECK: No masses, no nuchal rigidity. CHEST: No chest wall deformity. LUNGS: Occasional rhonchi HEART: S1 and S2 normal ABDOMEN: No hepatosplenomegaly, normal bowel sounds, no guarding or rigidity. SKIN: No rashes CENTRAL NERVOUS SYSTEM: No focal deficits. EXTREMITIES: No cyanosis, clubbing or edema. - Labs CBC & Chem 7: 09/16/18 06:26 09/16/18 06:26 Labs: Abnormal Lab Results - Last 24 Hours (Table) 09/15/18 09/15/18 09/15/18 Range/Units 15:55 17:34 19:57 RBC (3.80-5.40) m/uL Hgb (11.4-16.0) gm/dL Hct (34.0-46.0) % Neutrophils # (1.3-7.7) k/uL APTT 49.1 H (22.0-30.0) sec Glucose (74-99) mg/dL POC Glucose (mg/dL) (75-99) mg/dL Troponin I 2.410 H* 2.170 H* (0.000-0.034) ng/mL Urine Appearance (Clear) Urine Protein (Negative) Urine Blood (Negative) Ur Leukocyte Esterase (Negative) Urine RBC (0-5) /hpf Urine WBC (0-5) /hpf Urine WBC Clumps (None) /hpf Urine Bacteria (None) /hpf Hyaline Casts (0-2) /lpf Urine Mucus (None) /hpf 09/15/18 09/15/18 09/15/18 Range/Units 21:42 21:46 22:18 RBC (3.80-5.40) m/uL Hgb (11.4-16.0) gm/dL Hct (34.0-46.0) % Neutrophils # (1.3-7.7) k/uL APTT 37.2 H (22.0-30.0) sec Glucose (74-99) mg/dL POC Glucose (mg/dL) 111 H (75-99) mg/dL Troponin I (0.000-0.034) ng/mL Urine Appearance Turbid H (Clear) Urine Protein 2+ H (Negative) Urine Blood Large H (Negative) Ur Leukocyte Esterase Large H (Negative) Urine RBC >182 H (0-5) /hpf Urine WBC >182 H (0-5) /hpf Urine WBC Clumps Many H (None) /hpf Urine Bacteria Many H (None) /hpf Hyaline Casts 42 H (0-2) /lpf Urine Mucus Moderate H (None) /hpf 09/16/18 09/16/18 09/16/18 Range/Units 06:26 06:26 06:26 RBC 3.44 L (3.80-5.40) m/uL Hgb 10.1 L (11.4-16.0) gm/dL Hct 31.7 L (34.0-46.0) % Neutrophils # 7.9 H (1.3-7.7) k/uL APTT 94.7 H (22.0-30.0) sec Glucose 114 H (74-99) mg/dL POC Glucose (mg/dL) (75-99) mg/dL Troponin I (0.000-0.034) ng/mL Urine Appearance (Clear) Urine Protein (Negative) Urine Blood (Negative) Ur Leukocyte Esterase (Negative) Urine RBC (0-5) /hpf Urine WBC (0-5) /hpf Urine WBC Clumps (None) /hpf Urine Bacteria (None) /hpf Hyaline Casts (0-2) /lpf Urine Mucus (None) /hpf Microbiology - Last 24 Hours (Table) 09/15/18 21:46 Urine Culture - Preliminary Urine,Voided Assessment and Plan (1) Myocardial infarction (lateral wall) Current Visit: Yes Status: Acute Code(s): I21.29 - STEMI INVOLVING OTH SITES SNOMED Code(s): 33301154 (2) History of quadriplegia Current Visit: Yes Status: Acute Code(s): Z86.69 - PERSONAL HISTORY OF DIS OF THE NERVOUS SYS AND SENSE ORGANS SNOMED Code(s): 318451599 (3) Diastolic CHF Current Visit: Yes Status: Acute Code(s): I50.30 - UNSPECIFIED DIASTOLIC ( CONGESTIVE) HEART FAILURE SNOMED Code(s): 390489692 (4) Atrial fibrillation Current Visit: Yes Status: Acute Code(s): I48.91 - UNSPECIFIED ATRIAL FIBRILLATION SNOMED Code(s): 99299252 Plan: Patient developed atrial fibrillation with RVR. Back in sinus rhythm. Currently on IV Lopressor, IV Lasix and also Nitropaste along with aspirin. We' ll discontinue IV Cardizem and also IV amiodarone. Continue rest of the medication.
[2018-09-16] MEDS ORDERED: ASPIRIN 300 MG SUPP RECTAL STA (11:58)
[2018-09-16] MEDS: SODIUM CHLORIDE 0.9% 500 ML 500 ML IV SCH (12:10)
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
--- NOTE | 2018-09-16 22:16 | PN ---
PROGRESS NOTE DATE OF SERVICE: September 16, 2018. PRESENTING COMPLAINT: Acute NH. INTERVAL HISTORY: This patient who is minimally communicative, presented with an acute NH, was moved to the ICU as the blood pressure and heart rate was up yesterday. This patient is pocketing food in the mouth and as per the caregiver only does it maybe once in the week. The patient is started on IV Keppra. The patient's custodial and charges here, states that the patient does take a pureed diet at home. Nurse Stacia did try but the patient had been putting food in the mouth. REVIEW OF SYSTEMS: Cannot be obtained as patient is really not communicating. CURRENT MEDICATIONS: Reviewed that include IV amiodarone, IV heparin, IV Keppra, had received IV Levophed. PHYSICAL EXAMINATION: VITAL SIGNS: Temperature 99, pulse 80, respiration 25, blood pressure 117/68, pulse ox 98% on 2 L. GENERAL APPEARANCE: Lying in bed, more restful. EYES: Pupils equal. Conjunctivae normal. NECK: JVD not raised. Mass not palpable. RESPIRATORY: Effort normal. LUNGS are clear. CARDIOVASCULAR: First and second sounds normal. No edema. ABDOMEN: Soft, nontender. Liver and spleen is not palpable. PSYCHIATRY: Not answering questions. NEUROLOGICAL: Moving all limbs. Does follow with the eyes and follow simple commands. INVESTIGATIONS: White count 10.4, hemoglobin 10.1, potassium 4.6. Urine culture pending. ASSESSMENT: 1. Acute ST-elevation myocardial infarction, POA. 2. Mild pulmonary edema secondary to above. 3. Chronic mental retardation. 4. Chronic seizure disorder. 5. Asthma. 6. Chronic dysphagia. Patient does use a pureed diet at the present time. Patient is barely eating. PLAN: Continue current medication and treatment plan. Continue with IV medications. Care was discussed with the custodial in charge. Also Dr. Butler. If the patient starts tolerating a diet, the patient will be switched over to her antiseizure medication from home. Prognosis guarded. Follow. MMODL / IJN: [id number] /
[2018-09-17] MEDS: LORazepam 2 MG/ML INJ IV PRN (03:21)
[2018-09-17 05:42] LABS: Basophils # (A) 0.1 k/uL (0-0.2); Basophils % (A) 1 %; Eosinophils # (A) 0.4 k/uL (0-0.7); Eosinophils % (A) 4 %; HCT 30.6 % (34.0-46.0); HGB 10.1 gm/dL (11.4-16.0); Lymphocytes # (A) 1.2 k/uL (1.0-4.8); Lymphocytes % (A) 13 %; MCH 30.3 pg (25.0-35.0); MCHC 32.8 g/dL (31.0-37.0); MCV 92.2 fL (80.0-100.0); Mean Platelet Volume 7.3; Monocytes # (A) 0.9 k/uL (0-1.0); Monocytes % (A) 9 %; Neutrophils # (A) 6.7 k/uL (1.3-7.7); Neutrophils % (A) 72 %; Platelet Count 253 k/uL (150-450); RBC 3.32 m/uL (3.80-5.40); RDW 13.4 % (11.5-15.5); WBC 9.3 k/uL (3.8-10.6)
[2018-09-17 05:52] LABS: Calcium 8.7 mg/dL (8.4-10.2); Potassium 4.1 mmol/L (3.5-5.1)
[2018-09-17] MEDS: METOPROLOL TARTRATE 5 MG/5 ML VIAL IVP SCH ×4 (06:15→23:12)
[2018-09-17] MEDS: LEVOTHYROXINE 75 MCG TAB PO SCH (06:32)
[2018-09-17] MEDS: BUDESONIDE 0.5 MG/2 ML NEBU INHALATION SCH ×2 (07:24→19:22)
[2018-09-17] MEDS: NITROGLYCERIN OINT 1 INCH/GM PACKET TOPICAL SCH ×4 (08:00→23:14)
--- NOTE | 2018-09-17 08:07 | XR ---
EXAMINATION TYPE: XR chest 1V DATE OF EXAM: 09/17/2018 COMPARISON: Prior chest x-ray 09/16/2018 HISTORY: Shortness of breath TECHNIQUE: Single frontal view of the chest is obtained. FINDINGS: Patient is rotated and there are cardiac leads. Retrocardiac density persists, the left he midiaphragm is obscured. No pneumothorax. Heart size is stable accounting for rotation. Pulmonary vas cularity and stephanie not significantly changed. IMPRESSION: Left lower lobe atelectasis versus pneumonia and associated effusion, follow-up to [facility].
[2018-09-17] MEDS: NOREPINEPHRINE 4 MG in SODIUM CHLORIDE 0.9% 250 ML IV SCH (08:58)
[2018-09-17] MEDS ORDERED: AMIODARONE 360 MG in DEXTROSE 5% IN WATER 200 ML IV ONE ×2 (09:00)
[2018-09-17] MEDS ORDERED: DEXTROSE 5% IN WATER 100 ML with AMIODARONE 150 MG IV ONE (09:00)
[2018-09-17] MEDS: HEPARIN SOD,PORK IN 0.45% NACL 25,000 UNIT in 0.45% NACL 1 250ML.BAG IV SCH (09:15)
[2018-09-17] MEDS: ASPIRIN 325 MG TAB PO SCH (09:23)
[2018-09-17] MEDS: POLYETHYLENE GLYCOL 3350 17 GM POWD.PACK PO SCH (09:23)
[2018-09-17] MEDS: ESLICARBAZEPINE ACETATE 800 MG PO SCH (09:23)
[2018-09-17] MEDS: SOOLANTRA 1% TOPICAL SCH (09:24)
[2018-09-17] MEDS: PANTOPRAZOLE 40 MG/10 ML VIAL IV SCH (09:32)
[2018-09-17] MEDS: NYSTATIN 100,000 UNIT/GM OINT 30 GM TUBE TOPICAL SCH (09:32)
[2018-09-17] MEDS: FUROSEMIDE 10 MG/ML 2 ML VIAL IV SCH ×2 (09:32→22:56)
[2018-09-17] MEDS: levETIRAcetam IV 1,000 MG in SALINE 1 100ML.BAG IVPB SCH ×2 (10:17→22:57)
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
[2018-09-17] MEDS: SODIUM CHLORIDE 0.9% 500 ML 500 ML IV SCH (14:02)
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
[2018-09-17] MEDS: AMIODARONE 300 MG in DEXTROSE 5% IN WATER 250 ML IV SCH ×2 (16:17)
[2018-09-17] MEDS: ALBUTEROL NEBULIZED 2.5 MG/3 ML INHALATION PRN (19:22)
--- NOTE | 2018-09-18 00:37 | PN ---
PROGRESS NOTE DATE OF SERVICE: 09/17/2018. PRESENTING COMPLAINT: Acute AL. INTERVAL HISTORY: The patient is minimally communicative, presented with acute AL. Remains in the ICU. Also, there is variable rate of atrial fibrillation, has been on IV amiodarone. Also getting IV Keppra. The patient has failed speech evaluation and swallow evaluation by Speech. Patient has a sitter at the bedside. REVIEW OF SYSTEMS: The patient does not really communicate. CURRENT MEDICATIONS: Reviewed, that include IV amiodarone, IV ceftriaxone, IV heparin. PHYSICAL EXAMINATION: Temperature 99.2, pulse 150, respirations 34, blood pressure 99/59, pulse ox 99% on 2 L. GENERAL APPEARANCE: Lying in bed, moving about. EYES: Pupils equal. Conjunctivae normal. NECK: JVD not raised. Mass not palpable. Respiratory effort normal. LUNGS: Clear. CARDIOVASCULAR: 1st and 2nd heart sounds normal. No edema. ABDOMEN: Soft, nontender. Liver and spleen not palpable. PSYCHIATRY: Does not answer questions. NEUROLOGICAL: Moving all limbs, awake. INVESTIGATIONS: White count 9.3, hemoglobin 10.1, potassium 4.1, BUN 20, creatinine 0.96. ASSESSMENT: 1. Acute ST-elevation myocardial infarction, POA. 2. Chronic mental retardation. 3. Chronic seizure disorder. 4. Asthma. 5. Chronic dysphagia, patient at baseline takes pureed diet, currently failed swallowing. 6. Atrial fibrillation with rapid ventricular rate, on amiodarone. PLAN: Continue current medication and treatment plan. Prognosis is guarded. If no change in swallowing status will need to address this with the patient's family. Asked to see if we can offer artificial means of feeding. Prognosis is guarded. MMODL / IJN: [id number] /
[2018-09-18] MEDS: NOREPINEPHRINE 4 MG in SODIUM CHLORIDE 0.9% 250 ML IV SCH ×2 (02:29→16:19)
[2018-09-18] MEDS: AMIODARONE 300 MG in DEXTROSE 5% IN WATER 250 ML IV SCH ×2 (02:50)
[2018-09-18] MEDS: METOPROLOL TARTRATE 5 MG/5 ML VIAL IVP SCH ×4 (05:33→18:04)
[2018-09-18] MEDS: NITROGLYCERIN OINT 1 INCH/GM PACKET TOPICAL SCH ×4 (05:33→23:00)
[2018-09-18 05:35] LABS: Basophils # (A) 0.1 k/uL (0-0.2); Basophils % (A) 1 %; Eosinophils # (A) 0.4 k/uL (0-0.7); Eosinophils % (A) 3 %; HGB 10.4 gm/dL (11.4-16.0); Lymphocytes # (A) 1.7 k/uL (1.0-4.8); Lymphocytes % (A) 15 %; MCH 30.6 pg (25.0-35.0); MCHC 32.5 g/dL (31.0-37.0); MCV 93.9 fL (80.0-100.0); Mean Platelet Volume 7.8; Monocytes # (A) 0.9 k/uL (0-1.0); Monocytes % (A) 8 %; Neutrophils # (A) 8.1 k/uL (1.3-7.7); Neutrophils % (A) 71 %; Platelet Count 286 k/uL (150-450); RDW 13.6 % (11.5-15.5); WBC 11.4 k/uL (3.8-10.6)
[2018-09-18 05:48] LABS: Calcium 8.7 mg/dL (8.4-10.2); Phosphorus 3.7 mg/dL (2.5-4.5)
[2018-09-18] MEDS: LEVOTHYROXINE 75 MCG TAB PO SCH (06:24)
[2018-09-18] MEDS: HEPARIN SODIUM,PORCINE 5,000 UNIT/ML 1 ML VIAL IV PRN ×2 (06:25→22:34)
[2018-09-18] MEDS: LEVOTHYROXINE IVP 100 MCG/5 ML VIAL IV SCH (07:50)
[2018-09-18] MEDS: SOOLANTRA 1% TOPICAL SCH (07:50)
[2018-09-18] MEDS: ASPIRIN 325 MG TAB PO SCH (07:50)
[2018-09-18] MEDS: POLYETHYLENE GLYCOL 3350 17 GM POWD.PACK PO SCH (07:50)
[2018-09-18] MEDS: ESLICARBAZEPINE ACETATE 800 MG PO SCH (07:50)
--- NOTE | 2018-09-18 08:14 | XR ---
EXAMINATION TYPE: XR chest 1V DATE OF EXAM: 09/18/2018 CLINICAL HISTORY: Difficulty breathing progress study. TECHNIQUE: Single AP portable semiupright view of the chest is obtained. COMPARISON: Chest x-ray from one day earlier and older studies. FINDINGS: There is persistent left basilar opacity. Right lung remains clear. Cardiac silhouette siz e is stable and upper limits of normal. Osseous structures are intact. Right infrahilar surgical clip redemonstrated. IMPRESSION: Overall stable findings, persistent small left pleural effusion and associated left bas ilar atelectasis and/or infiltrate.
[2018-09-18] MEDS: FUROSEMIDE 10 MG/ML 2 ML VIAL IV SCH ×2 (08:23→20:20)
[2018-09-18] MEDS: NYSTATIN 100,000 UNIT/GM OINT 30 GM TUBE TOPICAL SCH (08:23)
[2018-09-18] MEDS: PANTOPRAZOLE 40 MG/10 ML VIAL IV SCH (08:23)
[2018-09-18] MEDS: levETIRAcetam IV 1,000 MG in SALINE 1 100ML.BAG IVPB SCH ×2 (08:23→20:20)
[2018-09-18] MEDS: BUDESONIDE 0.5 MG/2 ML NEBU INHALATION SCH ×2 (08:52→20:30)
[2018-09-18] MEDS: ALBUTEROL NEBULIZED 2.5 MG/3 ML INHALATION PRN ×2 (08:52→20:30)
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
[2018-09-18] MEDS: HEPARIN SOD,PORK IN 0.45% NACL 25,000 UNIT in 0.45% NACL 1 250ML.BAG IV SCH (12:14)
[2018-09-18] MEDS: SODIUM CHLORIDE 0.9% 500 ML 500 ML IV SCH (12:15)
--- NOTE | 2018-09-18 14:55 | CDI ---
Patient has acute diastolic CHF Documentation Clarification Form Date: 09/18/2018 2:24:06 PM From: Trixie Hewitt RN, CCDS Admit Date: 09/15/2018 10:27:00 AM Patient Name: Keiko Saavedra Visit Number: [id number] Discharge Date: ATTENTION: The Clinical Documentation Specialists (CDI) and [facility] Coding Staff appreciate your assistance in clarifying documentation. Please respond to the clarification below the line at the bottom and electronically sign. The CDI & [facility] Coding staff will review the response and follow-up if needed. Please note: Queries are made part of the Legal Health Record. If you have any questions, please contact the author of this message via ITS. Dr. Joe Becerril Diastolic CHF is documented in your ongoing progress notes starting on 09/16/18. History/Risk Factors: Asthma, Dementia, Seizure disorder, Mental Retardation, Quadriplegia Clinical Indicators: 63-year-old female in ER, the patient is found to have acute VT. with shortness of breath. Lungs: diminished breath sounds and crackles especially in the left base. VS/Pulse OX: 120/67 79 98.1 95 % 2/L BNP: 2070 Echocardiogram Results: EF 345-50 % (09/15/18 progress note) Chest X Ray: 09/16/18: Correlate for continued mild CHF with pulmonary vascular congestion, continued small left pleural effusion with adjacent atelectasis and/or consolidation. Treatment: Telemetry monitoring Bronchodilators. per orders Monitor O2Sat's Metoprolol PO IV Lasix Lopressor IV In your professional opinion, can you please clarify the acuity of the Diastolic CHF if known? Acute Diastolic Congestive Heart Failure Chronic Diastolic Congestive Heart Failure Acute on Chronic Diastolic Congestive Heart Failure Unable to Determine Other, please specify (Last Revision: October 2017) MTDD
--- NOTE | 2018-09-18 15:21 | CDI ---
Documentation Clarification Form Date: 09/18/2018 2:57:30 PM From: Trixie Hewitt Admit Date: 09/15/2018 10:27:00 AM Patient Name: Keiko Saavedra Visit Number: [id number] Discharge Date: ATTENTION: The Clinical Documentation Specialists (CDI) and [facility] Coding Staff appreciate your assistance in clarifying documentation. Please respond to the clarification below the line at the bottom and electronically sign. The CDI & [facility] Coding staff will review the response and follow-up if needed. Please note: Queries are made part of the Legal Health Record. If you have any questions, please contact the author of this message via ITS. Dr. Joe Becerril Atrial Fibrillation is documented in the progress notes starting on 09/16/18. History/Risk Factors: Asthma, Dementia, Seizure Disorder, mental Retardation, Quadriplegia Clinical Indicators: 63-year-old female present with apparent episode where she stiffened for about 15 seconds. EKG/telemetry: Mild ST elevation with Q waves in 1 and aVL. Cardiac enzymes showed troponin of 2.39. It was felt that patient had a myocardial infarction. On 09/15/18 she went into bouts of atrial fibrillation with rapid ventricular response heart rate 160. 09/16/18 AFIB : 85/54 156 29 09/17/18 Still having bouts of atrial fibrillation Treatment: Telemetry Monitoring Amiodarone IV Cardizem IV (DC) Nitropaste ASA Lopressor IV Consults: In your professional opinion, can you please clarify the type of Atrial Fibrillation, if known? Chronic/Permanent Paroxysmal Persistent Other, please specify Unable to determine (Last Revision: October 2017) MTDD
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
[2018-09-18] MEDS ORDERED: AMIODARONE 360 MG in DEXTROSE 5% IN WATER 200 ML IV ONE ×2 (21:52)
[2018-09-18] MEDS ORDERED: DEXTROSE 5% IN WATER 100 ML with AMIODARONE 150 MG IV ONE (21:52)
[2018-09-18] MEDS: LORazepam 2 MG/ML INJ IV PRN (22:35)
--- NOTE | 2018-09-19 02:19 | PN ---
PROGRESS NOTE DATE OF SERVICE: September 18, 2018. PRESENTING COMPLAINT: Acute myocardial infarction. INTERVAL HISTORY: The patient remains in the ICU at baseline, noncommunicative. Swallowing is slightly better today. Speech therapy was going to attempt some more swallowing. The patient also been in and out of atrial fibrillation. He has been on IV amiodarone. Also on IV Keppra for history of seizures. REVIEW OF SYSTEMS: Patient is very noncommunicative, but follows simple commands. CURRENT MEDICATIONS: Reviewed that include IV amiodarone, IV ceftriaxone, IV heparin, IV Keppra. PHYSICAL EXAMINATION: VITAL SIGNS: Temperature 99.5, pulse 73, respiration 14, blood pressure 143/49, pulse ox 95% on 2 L. GENERAL APPEARANCE: Lying in bed, awake. Does follow with the eyes. EYES: Pupils are equal. Conjunctivae normal. NECK: JVD not raised. Mass not palpable. RESPIRATORY: Effort normal. LUNGS: Clear. CARDIOVASCULAR: 1st and 2nd sounds normal. No edema. ABDOMEN: Soft, nontender. Liver and spleen not palpable. NEUROLOGICAL: Moving all four limbs. INVESTIGATIONS: White count 11.4, hemoglobin 10.4, potassium 4.0, BUN 23, creatinine 1.07. ASSESSMENT: 1. Acute ST-elevation myocardial infarction. 2. Chronic mental retardation. 3. Chronic seizure disorder. 4. Asthma. 5. Chronic dysphagia. The patient is started on diet today. 6. New onset atrial fibrillation with rate uncontrolled initially. PLAN: Continue current medication and treatment plan. Speech therapy is attempting to increase oral intake. Follow closely. Prognosis is guarded. MMODL / IJN: [id number] /
[2018-09-19] MEDS: METOPROLOL TARTRATE 5 MG/5 ML VIAL IVP SCH ×4 (03:37→18:30)
[2018-09-19] MEDS: AMIODARONE 300 MG in DEXTROSE 5% IN WATER 250 ML IV SCH ×4 (05:00→15:30)
[2018-09-19 05:05] LABS: Basophils # (A) 0.1 k/uL (0-0.2); Basophils % (A) 1 %; Eosinophils # (A) 0.4 k/uL (0-0.7); Eosinophils % (A) 3 %; HCT 32.1 % (34.0-46.0); HGB 10.4 gm/dL (11.4-16.0); Lymphocytes # (A) 1.5 k/uL (1.0-4.8); Lymphocytes % (A) 11 %; MCH 29.8 pg (25.0-35.0); MCHC 32.4 g/dL (31.0-37.0); MCV 91.9 fL (80.0-100.0); Mean Platelet Volume 8.3; Monocytes % (A) 7 %; Neutrophils # (A) 10.7 k/uL (1.3-7.7); Neutrophils % (A) 77 %; Platelet Count 269 k/uL (150-450); RDW 13.8 % (11.5-15.5)
[2018-09-19] MEDS: NITROGLYCERIN OINT 1 INCH/GM PACKET TOPICAL SCH ×3 (05:09→18:29)
[2018-09-19 05:30] LABS: Calcium 8.7 mg/dL (8.4-10.2); Magnesium 2.1 mg/dL (1.6-2.3); Potassium 3.9 mmol/L (3.5-5.1)
[2018-09-19] MEDS: HEPARIN SOD,PORK IN 0.45% NACL 25,000 UNIT in 0.45% NACL 1 250ML.BAG IV SCH (06:21)
--- NOTE | 2018-09-19 08:18 | XR ---
EXAMINATION TYPE: XR chest 1V DATE OF EXAM: 09/19/2018 COMPARISON: 09/18/2018 INDICATION: Shortness of breath TECHNIQUE: Single frontal view of the chest is obtained. Patient is rotated to the left. FINDINGS: The heart size is normal. The pulmonary vasculature is normal. There is a small left pleural effusion. This is similar to prior exam. IMPRESSION: 1. Small left pleural effusion.
[2018-09-19] MEDS: ALBUTEROL NEBULIZED 2.5 MG/3 ML INHALATION PRN ×2 (08:35→21:17)
[2018-09-19] MEDS: BUDESONIDE 0.5 MG/2 ML NEBU INHALATION SCH ×2 (08:35→21:17)
[2018-09-19] MEDS: PANTOPRAZOLE 40 MG/10 ML VIAL IV SCH (09:19)
[2018-09-19] MEDS: LEVOTHYROXINE IVP 100 MCG/5 ML VIAL IV SCH (09:21)
[2018-09-19] MEDS: FUROSEMIDE 10 MG/ML 2 ML VIAL IV SCH ×2 (09:21→21:09)
[2018-09-19] MEDS: levETIRAcetam IV 1,000 MG in SALINE 1 100ML.BAG IVPB SCH (09:23)
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
[2018-09-19] MEDS: NOREPINEPHRINE 4 MG in SODIUM CHLORIDE 0.9% 250 ML IV SCH (11:14)
[2018-09-19] MEDS: POLYETHYLENE GLYCOL 3350 17 GM POWD.PACK PO SCH (11:14)
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
--- NOTE | 2018-09-19 12:22 | FL ---
EXAMINATION TYPE: FL barium swallow w video DATE OF EXAM: 09/19/2018 MODIFIED SWALLOW / DEGLUTITION STUDY CLINICAL HISTORY: Dysphagia. History of closed head injury. TECHNIQUE: Deglutition study is performed utilizing honey and nectar thick liquid barium, and bariu m thick pudding. COMPARISON: None. FINDINGS: The oral and pharyngeal phases show delay in initiation with satisfactory propagation with all modalities tested. Some free spillage is present. There is deep penetration with nectar thick liq uid barium which initiate cough reflex. There is no penetration or aspiration with other modalities t ested. No significant pharyngeal residue was appreciated. IMPRESSION: Suboptimal study with deep penetration which initiate cough reflex with nectar thick liqu id barium. More viscous modalities tested show no penetration or aspiration. Please refer to speech t herapist notes for further details if necessary.
[2018-09-19] MEDS: SODIUM CHLORIDE 0.9% 500 ML 500 ML IV SCH (12:33)
[2018-09-19] MEDS: NYSTATIN 100,000 UNIT/GM OINT 30 GM TUBE TOPICAL SCH (12:33)
[2018-09-19] MEDS: SOOLANTRA 1% TOPICAL SCH (12:47)
[2018-09-19] MEDS: ESLICARBAZEPINE ACETATE 800 MG PO SCH (16:40)
[2018-09-19] MEDS: ASPIRIN 325 MG TAB PO SCH (16:41)
[2018-09-19] MEDS: AMIODARONE 200 MG TAB PO SCH (22:59)
--- NOTE | 2018-09-20 00:02 | PN ---
PROGRESS NOTE DATE OF SERVICE: 09/19/2018 PRESENTING COMPLAINT: Acute [place]. INTERVAL HISTORY: This patient remains in the ICU, non-communicative. Did a modified barium swallow; did pass this test. Patient has been tolerating a pureed diet with crushed pills. Patient has been in and out of atrial fibrillation. Started on IV heparin and IV amiodarone. Patient's IV Keppra was being discontinued later today. REVIEW OF SYSTEMS: Patient is non-communicative. Does follow simple commands. CURRENT MEDICATIONS: Reviewed. They include IV amiodarone, IV heparin. Home seizure medication Aptiom is being started. IV Keppra was discontinued. PHYSICAL EXAMINATION: Temperature 99.3, pulse 78, respiration 20, blood pressure 98/83, pulse ox 94% on room air. GENERAL APPEARANCE: Lying in bed. Does follow with the eyes. EYES: Pupils equal. Conjunctivae normal. NECK: JVD not raised. Mass not palpable. RESPIRATORY: Effort normal. Lungs are clear. CARDIOVASCULAR: First and second sounds normal. No edema. ABDOMEN: Soft, non-tender. Liver and spleen not palpable. NEUROLOGICAL: Does move all 4 limbs. INVESTIGATIONS: White count 14, hemoglobin 10.4, creatinine 0.95. ASSESSMENT: 1. Acute ST-elevation myocardial infarction. 2. Chronic mental retardation. 3. Chronic seizure disorder. 4. Asthma. 5. Chronic dysphagia. Patient was started on a pureed diet. 6. Paroxysmal atrial fibrillation; in and out of that. 7. IV heparin monitoring. PLAN: Continue current medication and treatment plan, including IV heparin and IV amiodarone. Home seizure medication has been resumed. Patient should be able to be moved out of the ICU tomorrow. Prognosis is guarded. MMODL / IJN: [id number] /
[2018-09-20] MEDS: NITROGLYCERIN OINT 1 INCH/GM PACKET TOPICAL SCH ×2 (00:10→06:54)
[2018-09-20] MEDS: HEPARIN SOD,PORK IN 0.45% NACL 25,000 UNIT in 0.45% NACL 1 250ML.BAG IV SCH (00:22)
[2018-09-20] MEDS: NOREPINEPHRINE 4 MG in SODIUM CHLORIDE 0.9% 250 ML IV SCH (00:23)
[2018-09-20 05:52] LABS: Basophils # (A) 0.1 k/uL (0-0.2); Basophils % (A) 1 %; Eosinophils # (A) 0.4 k/uL (0-0.7); Eosinophils % (A) 3 %; HCT 34.5 % (34.0-46.0); Lymphocytes # (A) 1.7 k/uL (1.0-4.8); Lymphocytes % (A) 12 %; MCH 29.7 pg (25.0-35.0); MCHC 31.9 g/dL (31.0-37.0); MCV 93.2 fL (80.0-100.0); Mean Platelet Volume 8.9; Monocytes % (A) 7 %; Neutrophils # (A) 10.3 k/uL (1.3-7.7); Neutrophils % (A) 75 %; Platelet Count 295 k/uL (150-450); RDW 14.5 % (11.5-15.5); WBC 13.8 k/uL (3.8-10.6)
[2018-09-20 06:26] LABS: Calcium 8.9 mg/dL (8.4-10.2); Phosphorus 3.5 mg/dL (2.5-4.5); Potassium 3.5 mmol/L (3.5-5.1)
[2018-09-20] MEDS ORDERED: Potassium Replacement Protocol 1 EACH MISC MISCELLANE PRN (06:50)
[2018-09-20] MEDS: METOPROLOL TARTRATE 5 MG/5 ML VIAL IVP SCH ×2 (06:52→07:16)
[2018-09-20] MEDS: POTASSIUM CHLORIDE ER 20 MEQ TAB.ER PO SCH ×2 (07:18→09:13)
[2018-09-20] MEDS: BUDESONIDE 0.5 MG/2 ML NEBU INHALATION SCH ×2 (07:26→20:40)
[2018-09-20] MEDS: ALBUTEROL NEBULIZED 2.5 MG/3 ML INHALATION PRN ×2 (07:27→11:38)
--- NOTE | 2018-09-20 08:19 | XR ---
EXAMINATION TYPE: XR chest 1V DATE OF EXAM: 09/20/2018 COMPARISON: 09/19/2018 HISTORY: 63-year-old female shortness of breath TECHNIQUE: Single frontal view of the chest is obtained. FINDINGS: Heart upper limits of normal in size. Continued small left pleural effusion with left basilar opacity . Remainder of the lungs appear relatively clear. IMPRESSION: Continued small left pleural effusion with adjacent left basilar atelectasis and/or consolidation.
[2018-09-20] MEDS: LEVOTHYROXINE IVP 100 MCG/5 ML VIAL IV SCH (09:12)
[2018-09-20] MEDS: FUROSEMIDE 10 MG/ML 2 ML VIAL IV SCH (09:12)
[2018-09-20] MEDS: PANTOPRAZOLE 40 MG/10 ML VIAL IV SCH (09:12)
[2018-09-20] MEDS: AMIODARONE 200 MG TAB PO SCH ×3 (09:12→20:47)
[2018-09-20] MEDS: ASPIRIN 325 MG TAB PO SCH (09:12)
[2018-09-20] MEDS: POLYETHYLENE GLYCOL 3350 17 GM POWD.PACK PO SCH (09:13)
[2018-09-20] MEDS: NYSTATIN 100,000 UNIT/GM OINT 30 GM TUBE TOPICAL SCH (09:31)
[2018-09-20] MEDS: SOOLANTRA 1% TOPICAL SCH (10:30)
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
[2018-09-20] MEDS: APIXABAN 5 MG TAB PO SCH ×2 (13:04→20:46)
[2018-09-20] MEDS: ESLICARBAZEPINE ACETATE 800 MG PO SCH (13:04)
[2018-09-20] MEDS: SODIUM CHLORIDE 0.9% 500 ML 500 ML IV SCH (13:09)
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
[2018-09-20] MEDS: METOPROLOL TARTRATE 12.5 MG TAB PO SCH (20:46)
--- NOTE | 2018-09-20 21:53 | PN ---
PROGRESS NOTE DATE OF SERVICE: 09/20/2018 PRESENTING COMPLAINT: Acute [place]. INTERVAL HISTORY: Patient is in the ICU, not communicative at baseline. Tolerating a pureed diet. Has been in and out of atrial fibrillation, rate controlled. Back on her seizure medication. Also on Eliquis, status post [place]. REVIEW OF SYSTEMS: Patient is noncommunicative, though does follow commands. CURRENT MEDICATIONS: Reviewed. They include p.o. amiodarone, IV ceftriaxone, Lopressor. PHYSICAL EXAMINATION: VITAL SIGNS: Temperature 98.9, pulse 80, respiration 18, blood pressure 168/72, pulse ox 94% on room air. GENERAL APPEARANCE: Lying in bed. Awake. EYES: Pupils equal. Conjunctivae normal. NECK: JVD not raised. Mass not palpable. RESPIRATORY: Effort normal. LUNGS: Fair air entry. CARDIOVASCULAR: First and second sounds normal. No edema. ABDOMEN: Soft, non-tender. Liver and spleen not palpable. NEUROLOGICAL: Moves all 4 limbs. Follows simple commands. INVESTIGATIONS: White count 13.8, hemoglobin 11, potassium 3.5, BUN 22, creatinine 0.94. ASSESSMENT: 1. Acute ST-elevation myocardial infarction. 2. Chronic mental retardation. 3. Chronic seizure disorder. 4. Asthma. 5. Chronic dysphagia. The patient is on a pureed diet. 6. Paroxysmal atrial fibrillation, rate controlled. 7. Acute urinary tract infection with cystitis with Proteus mirabilis. PLAN: Patient will be moved out of the ICU. Will discontinue patient's IV ceftriaxone after tomorrow. She will be able to go back to the long-term tomorrow. MMODL / IJN: [id number] /
[2018-09-20 23:09] VITALS: RESP 18
[2018-09-21] MEDS ORDERED: LEVOTHYROXINE 75 MCG TAB PO SCH (06:30)
[2018-09-21] MEDS ORDERED: PANTOPRAZOLE 40 MG TABLET PO SCH (07:30)
[2018-09-21] MEDS: ALBUTEROL NEBULIZED 2.5 MG/3 ML INHALATION PRN (08:02)
[2018-09-21] MEDS: BUDESONIDE 0.5 MG/2 ML NEBU INHALATION SCH (08:02)
[2018-09-21] MEDS: ASPIRIN 325 MG TAB PO SCH (08:52)
[2018-09-21] MEDS: APIXABAN 5 MG TAB PO SCH (08:52)
[2018-09-21] MEDS: AMIODARONE 200 MG TAB PO SCH ×2 (08:53→17:04)
[2018-09-21] MEDS ORDERED: FUROSEMIDE 20 MG TAB PO SCH (09:00)
[2018-09-21] MEDS: POLYETHYLENE GLYCOL 3350 17 GM POWD.PACK PO SCH (09:00)
[2018-09-21] MEDS: SOOLANTRA 1% TOPICAL SCH (09:00)
[2018-09-21] MEDS: NYSTATIN 100,000 UNIT/GM OINT 30 GM TUBE TOPICAL SCH (09:01)
[2018-09-21] MEDS: METOPROLOL TARTRATE 12.5 MG TAB PO SCH (09:02)
[2018-09-21] MEDS: ESLICARBAZEPINE ACETATE 800 MG PO SCH (09:03)
[2018-09-21] MEDS: SODIUM CHLORIDE 0.9% 500 ML 500 ML IV SCH (10:00)
[2018-09-21 11:56] VITALS: BP 104/54; PULSE 67; TEMP 98.5
[2018-09-21 12:16] LABS: Glucose,Whole Blood 89 mg/dL (75-99)
[2018-09-21 13:28] VITALS: BMI 33.1
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
--- NOTE | 2018-09-23 08:02 | DS ---
DISCHARGE SUMMARY DATE OF ADMISSION: 09/15/18 DATE OF DISCHARGE: 09/21/18. FINAL DIAGNOSES: 1. Acute ST-elevation myocardial infarction, present on admission. 2. Chronic mental retardation. 3. Chronic seizure disorder. 4. Intermittent asthma. 5. Chronic dysphagia, patient on a pureed diet. 6. Paroxysmal atrial fibrillation, now rate controlled. 7. Acute urinary tract infection with cystitis with Proteus mirabilis. HOSPITAL COURSE: [facility] [place] [facility], can follow some commands, but really noncommunicative, presented with acute ST-elevation myocardial infarction. Then patient went into atrial fibrillation rapid ventricular rate, had to be moved to the ICU. Also treated for acute UTI with cystitis and Proteus mirabilis. The patient was seen by speech therapy and patient started tolerating a diet yet again. The patient was managed medically and was watched for some time in the ICU. The patient is now able to tolerate a diet with supervision. Does follow simple commands. Is noncommunicative. CONSULTATIONS: 1. [facility]. 2. Dr. Herrera and Dr. Butler from [facility]. PHYSICAL EXAMINATION: Temperature 98.5, pulse 67, respiratory 18, blood pressure 104/52, pulse ox 95% on room air. LUNGS: Slightly decreased breath sounds. CARDIOVASCULAR: Heart sounds irregular. The patient not able to speak. INVESTIGATIONS: White count 13.8, hemoglobin 11, potassium 3.5, BUN 22, creatinine 0.94. The patient did have a video fluoroscopic swallow study and based on that, the patient was given a diet. There was no obvious penetration was seen. On the day of discharge, care was discussed with the mother at the bedside. Care was coordinated with site planner. Discussion and discharge planning more than 35 minutes. DISCHARGE MEDICATIONS: 1. Ventolin 2.5 mg q.4h p.r.n. 2. Pulmicort 0.5 nebulizer b.i.d. 3. Caltrate with vitamin D 1 tablet p.o. daily. 4. Synthroid 75 mcg a day. 5. Mycostatin 1 application topical daily. 6. MiraLAX 17 grams p.o. daily. 7. 15 g oral gel as directed. 8. Vitamin D3 1000 units p.o. daily. 9. Aptiom 800 mg p.o. daily, seizure medication. 10. 1% topical daily. 11.Cordarone 200 mg p.o. tapering dose as directed. 12.Eliquis 5 mg p.o. b.i.d. 13.Aspirin 81 mg p.o. daily. 14.Vitamin D3 3000 units p.o. daily. 15.Lasix 20 mg p.o. daily. 16.Lopressor 12.5 p.o. b.i.d. 17.Keppra will be discontinued. Will call the jail. FOLLOWUP: Follow with Dr. Chinchilla on 09/25/18. Follow with Dr. Becerril on 10/11/18, follow with Dr. Butler on 10/15/18. I will call the [facility] at telephone #[phone] and tell them that the Keppra is being discontinued. RATNA / CHALINON: [id number] /
--- NOTE | 2018-09-25 05:54 | DS ---
DISCHARGE SUMMARY ADDENDUM TO DISCHARGE SUMMARY DATE OF ADMISSION: 09/15/2018 DATE OF DISCHARGE: 09/21/2018. ADDENDUM: I spoke to the interactive media project manager at the [facility]. I discovered that patient was taking Keppra before coming in the hospital; hence, patient's Keppra will be continued and she did confirm the same. Hence, Keppra will be continued as per our discussion with the interactive media project manager earlier today. XIOMYL / IJN: [id number] /
== END 2018-09-21 18:16 | DRG 280 ==
LOC: EC 08:04 → 3SCARD 10:27 → 2SICU 21:37 → 3SCARD 09-20 17:19
PROVIDERS: ADMIT Hospitalist; ATTEND Hospitalist
DX: I21.29 ST elevation (STEMI) myocardial infarction involving other sites (principal); G82.50 Quadriplegia, unspecified; I50.31 Acute diastolic (congestive) heart failure; J98.11 Atelectasis; N30.00 Acute cystitis without hematuria; I48.1 Persistent atrial fibrillation; F03.90 Unspecified dementia, unspecified severity, without behavioral disturbance, psychotic disturbance, mood disturbance, and anxiety; F79 Unspecified intellectual disabilities; G40.909 Epilepsy, unspecified, not intractable, without status epilepticus; I48.0 Paroxysmal atrial fibrillation; J45.20 Mild intermittent asthma, uncomplicated; B96.4 Proteus (mirabilis) (morganii) as the cause of diseases classified elsewhere; R13.10 Dysphagia, unspecified; V49.9XXS Car occupant (driver) (passenger) injured in unspecified traffic accident, sequela; Z66 Do not resuscitate; Z79.890 Hormone replacement therapy; I95.9 Hypotension, unspecified; Z79.51 Long term (current) use of inhaled steroids; Z79.899 Other long term (current) drug therapy; Z88.0 Allergy status to penicillin
CPT/HCPCS: 36415; 70450; 71045; 71046; 74230; 80048; 80053; 80061; 80177; 81001; 83735; 83880; 84100; 84484; 85025; 85610; 85730; 87077; 87086; 87186; 93005; 93306; 94640; 94760; 96361; 96365; 96376; 99291

== ENCOUNTER 2018-10-12 07:38 | Inpatient (IN) | payer MEDICARE, OTHER ==
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
--- NOTE | 2018-10-12 08:38 | XR ---
EXAMINATION TYPE: XR chest 1V portable DATE OF EXAM: 10/12/2018 COMPARISON: Chest x-ray September 20, 2018 HISTORY: Difficulty in breathing and pain. TECHNIQUE: Single AP portable frontal upright view of the chest is obtained. FINDINGS: There is low lung volumes on current study. There is persistent small to moderate-sized le ft pleural effusion with associated left basilar atelectasis and/or infiltrate. There is more patchy right basilar atelectasis. The cardiac silhouette size is stable and mildly enlarged with atheroscler otic aorta. The osseous structures are intact. IMPRESSION: Low lung volumes with mild cardiomegaly and small to moderate-sized left pleural effusio n and associated left basilar atelectasis and/or infiltrate all redemonstrated. New right basilar ate lectasis noted.
--- NOTE | 2018-10-12 08:39 | XR ---
EXAMINATION TYPE: XR abdomen 1V DATE OF EXAM: 10/12/2018 8:32 AM CLINICAL HISTORY: Abdominal pain. TECHNIQUE: Single AP portable supine KUB image of the abdomen is obtained. COMPARISON: Abdominal x-ray September 12, 2018 FINDINGS: Gas is seen in visualized portion of inferior nondistended stomach. Scattered gas is seen i n non-distended small bowel loops. Gas and fecal material is seen in non-distended colon. Upper abdom en is not imaged. Scattered dystrophic calcifications are present in the pelvis laterally. Left-sided pelvic phleboliths are redemonstrated. Visualized osseous structures are intact. IMPRESSION: Suboptimal study, overall nonobstructive bowel gas pattern.
[2018-10-12 08:49] LABS: Glucose,Whole Blood 123 mg/dL (75-99)
[2018-10-12 08:57] LABS: Basophils # (A) 0.1 k/uL (0-0.2); Basophils % (A) 0 %; Eosinophils # (A) 0.2 k/uL (0-0.7); Eosinophils % (A) 1 %; HCT 41.7 % (34.0-46.0); HGB 13.1 gm/dL (11.4-16.0); Hypochromasia Slight; Lymphocytes # (A) 0.6 k/uL (1.0-4.8); Lymphocytes % (A) 3 %; MCH 28.8 pg (25.0-35.0); MCHC 31.5 g/dL (31.0-37.0); MCV 91.4 fL (80.0-100.0); Mean Platelet Volume 7.3; Monocytes % (A) 5 %; Neutrophils # (A) 17.4 k/uL (1.3-7.7); Neutrophils % (A) 90 %; Platelet Count 461 k/uL (150-450); RBC 4.56 m/uL (3.80-5.40); RDW 14.2 % (11.5-15.5); WBC 19.4 k/uL (3.8-10.6)
[2018-10-12 09:01] LABS: Albumin 3.9 g/dL (3.5-5.0); Calcium 9.5 mg/dL (8.4-10.2); Magnesium 2.1 mg/dL (1.6-2.3); Potassium 5.4 mmol/L (3.5-5.1); Total Bilirubin 0.7 mg/dL (0.2-1.3); Total Protein 7.2 g/dL (6.3-8.2)
[2018-10-12 09:09] LABS: INR 0.9 (<1.2); Prothrombin Time 10.1 sec (9.0-12.0)
[2018-10-12] MEDS ORDERED: LEVOFLOXACIN 750MG-D5W PMX 750 MG in DEXTROSE/WATER 1 150ML.BAG IVPB STA (09:16)
[2018-10-12 09:19] LABS: Creatine Kinase MB 0.8 ng/mL (0.0-2.4)
[2018-10-12 09:47] LABS: Appearance,Urine Cloudy (Clear); Bilirubin,Urine Negative (Negative); Blood,Urine Trace (Negative); Color,Urine Yellow; Glucose,Urine (UA) Negative (Negative); Ketones,Urine Negative (Negative); Leukocyte Esterase,Urine Large (Negative); Mucus,Urine Occasional /hpf; Nitrite,Urine Negative (Negative); Protein,Urine 1+ (Negative); RBC,Urine 14 /hpf (0-5); Specific Gravity,Urine 1.022 (1.001-1.035); Squamous Epithelial Cell,Urine 2 /hpf (0-4); Urobilinogen,Urine <2.0 mg/dL (<2.0); WBC,Urine 154 /hpf (0-5)
[2018-10-12 09:49] LABS: Troponin I 0.12 ng/mL (0.000-0.034)
[2018-10-12] MEDS ORDERED: VANCOMYCIN 1,000 MG in SODIUM CHLORIDE 0.9% 250 ML IVPB STA (10:00)
[2018-10-12] MEDS ORDERED: VANCOMYCIN 1,500 MG in SODIUM CHLORIDE 0.9% 250 ML IVPB STA (10:04)
[2018-10-12] MEDS ORDERED: FUROSEMIDE 10 MG/ML 4 ML VIAL IV STA (10:15)
[2018-10-12] MEDS ORDERED: PNEUMONIA PROTOCOL UTILIZED 1 EACH MISC PO PRN (10:19)
[2018-10-12] MEDS: SODIUM CHLORIDE 0.9% 1,000 ML IV SCH ×2 (10:48→22:08)
[2018-10-12] MEDS: BUDESONIDE 0.5 MG/2 ML NEBU INHALATION SCH (21:08)
[2018-10-12] MEDS: APIXABAN 5 MG TAB PO SCH (22:08)
[2018-10-12] MEDS: METOPROLOL TARTRATE 12.5 MG TAB PO SCH (22:08)
[2018-10-12] MEDS: levETIRAcetam 500 MG TAB PO SCH (22:08)
[2018-10-13] MEDS: VANCOMYCIN 1,500 MG in SODIUM CHLORIDE 0.9% 250 ML IVPB SCH ×2 (03:07→18:03)
[2018-10-13] MEDS: IPRATROPIUM-ALBUTEROL 3 ML NEB INHALATION PRN (03:39)
[2018-10-13] MEDS: LEVOTHYROXINE 75 MCG TAB PO SCH (06:50)
[2018-10-13] MEDS ORDERED: VANCOMYCIN IV PER PHARMACY 1 EACH MISC MISCELLANE PRN (08:00)
[2018-10-13 08:08] LABS: Calcium 8.7 mg/dL (8.4-10.2); Potassium 4.5 mmol/L (3.5-5.1); Total Bilirubin 0.5 mg/dL (0.2-1.3); Total Protein 5.9 g/dL (6.3-8.2)
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
--- NOTE | 2018-10-13 08:19 | XR ---
EXAMINATION TYPE: XR chest 1V portable DATE OF EXAM: 10/13/2018 HISTORY: pneumonia. REFERENCE: Previous study dated 10/12/2018. FINDINGS: The patient is taking a relatively poor inspiration. The heart is mildly enlarged. There is left basilar airspace disease. There is blunting of both CP an gles and I could not exclude small effusions. IMPRESSION: SUBOPTIMAL INSPIRATION DEMONSTRATING MILD CARDIOMEGALY, LEFT BASILAR AIRSPACE DISEASE AND SMALL, BILA TERAL EFFUSIONS.
[2018-10-13] MEDS: LEVOFLOXACIN 750MG-D5W PMX 750 MG in DEXTROSE/WATER 1 150ML.BAG IVPB SCH (09:00)
[2018-10-13] MEDS: ASPIRIN 81 MG PO SCH (09:00)
[2018-10-13] MEDS: PANTOPRAZOLE 40 MG/10 ML VIAL IVP SCH (09:00)
[2018-10-13] MEDS: APIXABAN 5 MG TAB PO SCH ×2 (09:00→19:41)
[2018-10-13] MEDS: AMIODARONE 200 MG TAB PO SCH (09:00)
[2018-10-13] MEDS: levETIRAcetam 500 MG TAB PO SCH ×2 (09:00→19:41)
[2018-10-13] MEDS: METOPROLOL TARTRATE 12.5 MG TAB PO SCH ×2 (09:00→19:41)
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
--- NOTE | 2018-10-13 10:19 | US ---
EXAMINATION TYPE: US chest DATE OF EXAM: 10/13/2018 COMPARISON: NONE CLINICAL HISTORY: assess for b/l pleural effusion. Difficult exam as patient could not sit up unassis flavio. TECHNIQUE: Targeted ultrasound of the posterior lower bilateral hemithoraces EXAM MEASUREMENTS: Right Pleural Effusion pocket size: 0.8 cm Right skin surface to fluid distance: 1.7 cm Left Pleural Effusion pocket size: 2.0 cm Left skin surface to fluid distance: 2.0 cm Right side NOT marked for possible thoracentesis outside the dept. Left side NOT marked for possible thoracentesis outside the dept. Pulmonologists are able to review the images in the patient?s EMR. IMPRESSIONS: TINY BILATERAL EFFUSIONS, NOT MARKED FOR THORACENTESIS.
[2018-10-13] MEDS: IPRATROPIUM-ALBUTEROL 3 ML NEB INHALATION SCH ×4 (11:05→21:06)
[2018-10-13] MEDS: BUDESONIDE 0.5 MG/2 ML NEBU INHALATION SCH ×2 (11:05→21:06)
[2018-10-13] MEDS: FORMOTEROL FUMARATE 20 MCG/2 ML NEBU INHALATION SCH ×2 (11:05→21:06)
[2018-10-13] MEDS: ESLICARBAZEPINE ACETATE 800 MG PO SCH (11:59)
[2018-10-13] MEDS: NYSTATIN 100,000 UNIT/GM OINT 30 GM TUBE TOPICAL SCH (12:00)
[2018-10-13] MEDS: POLYETHYLENE GLYCOL 3350 17 GM POWD.PACK PO SCH (12:00)
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
--- NOTE | 2018-10-13 14:29 | CT ---
EXAMINATION TYPE: CT angio chest DATE OF EXAM: 10/13/2018 COMPARISON: NONE HISTORY: Elevated d dimer, dyspnea. CT DLP: 336 mGycm. Automated Exposure Control for Dose Reduction was Utilized. CONTRAST: CTA scan of the thorax is performed with IV Contrast, patient injected with 75 mL of Isovue 300, pulm onary embolism protocol. MIP Images are created on CT scanner and reviewed. FINDINGS: Motion artifact and timing of the contrast bolus significantly limits evaluation. LUNGS: Bibasilar consolidation with small bilateral pleural effusions. No central pulmonary embolism. The visualized portion of the airway are clear. No large suspicious pulmonary nodules or masses. MEDIASTINUM: There are no greater than 1 cm hilar or mediastinal lymph nodes. No pericardial effusi on. The heart is enlarged. The main pulmonary artery is enlarged suggesting underlying pulmonary henrique rial hypertension. Ascending and descending thoracic aorta within normal limits. OTHER: Advanced kyphosis of the mid thoracic spine. Multilevel degenerative type changes are seen thr oughout the thoracic and lower cervical spine. Motion artifact results in the appearance of a sternal fracture although this is artifactual. IMPRESSION: 1. Limited evaluation for the presence of segmental and subsegmental pulmonary emboli secondary to mo tion artifact and timing of the contrast bolus. No large central pulmonary embolism. 2. Small bilateral pleural effusions with associated atelectasis. 3. Cardiomegaly. 4. Enlargement of the main pulmonary artery suggesting underlying pulmonary arterial hypertension.
[2018-10-13] MEDS: FUROSEMIDE 10 MG/ML 4 ML VIAL IV SCH ×2 (15:58→23:23)
[2018-10-13] MEDS ORDERED: FUROSEMIDE 20 MG TAB PO SCH (16:00)
[2018-10-13] MEDS ORDERED: ACETAMINOPHEN SUPPOSITORY 650 MG SUPP RECTAL PRN (17:46)
[2018-10-13] MEDS: SODIUM CHLORIDE 0.9% 1,000 ML IV SCH ×2 (19:41→23:23)
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
[2018-10-14] MEDS: IPRATROPIUM-ALBUTEROL 3 ML NEB INHALATION PRN (04:13)
[2018-10-14] MEDS: ALPRAZolam 0.25 MG TAB PO PRN ×2 (05:01→07:56)
[2018-10-14] MEDS: LEVOTHYROXINE 75 MCG TAB PO SCH (05:01)
[2018-10-14 07:01] LABS: Basophils % (A) 0 %; Eosinophils # (A) 0.3 k/uL (0-0.7); Eosinophils % (A) 1 %; HCT 33.9 % (34.0-46.0); HGB 10.7 gm/dL (11.4-16.0); Hypochromasia Slight; Lymphocytes # (A) 0.7 k/uL (1.0-4.8); Lymphocytes % (A) 3 %; MCH 28.7 pg (25.0-35.0); MCHC 31.5 g/dL (31.0-37.0); MCV 91.1 fL (80.0-100.0); Mean Platelet Volume 7.4; Monocytes # (A) 0.9 k/uL (0-1.0); Monocytes % (A) 3 %; Neutrophils # (A) 27.2 k/uL (1.3-7.7); Neutrophils % (A) 93 %; Platelet Count 329 k/uL (150-450); RBC 3.71 m/uL (3.80-5.40); RDW 14.1 % (11.5-15.5); WBC 29.4 k/uL (3.8-10.6)
[2018-10-14 07:22] LABS: Calcium 8.5 mg/dL (8.4-10.2); Potassium 3.5 mmol/L (3.5-5.1)
[2018-10-14] MEDS: ASPIRIN 81 MG PO SCH (07:56)
[2018-10-14] MEDS: APIXABAN 5 MG TAB PO SCH ×2 (07:56→21:18)
[2018-10-14] MEDS: METOPROLOL TARTRATE 12.5 MG TAB PO SCH ×2 (07:57→21:18)
[2018-10-14] MEDS: POLYETHYLENE GLYCOL 3350 17 GM POWD.PACK PO SCH (07:57)
[2018-10-14] MEDS: FUROSEMIDE 10 MG/ML 4 ML VIAL IV SCH ×2 (07:57→21:17)
[2018-10-14] MEDS: levETIRAcetam 500 MG TAB PO SCH ×2 (07:57→21:17)
[2018-10-14] MEDS: AMIODARONE 200 MG TAB PO SCH (07:57)
[2018-10-14] MEDS: PANTOPRAZOLE 40 MG/10 ML VIAL IVP SCH (07:58)
[2018-10-14] MEDS: LEVOFLOXACIN 750MG-D5W PMX 750 MG in DEXTROSE/WATER 1 150ML.BAG IVPB SCH (07:58)
[2018-10-14] MEDS: ESLICARBAZEPINE ACETATE 800 MG PO SCH (07:59)
[2018-10-14] MEDS: NYSTATIN 100,000 UNIT/GM OINT 30 GM TUBE TOPICAL SCH (07:59)
[2018-10-14] MEDS: IPRATROPIUM-ALBUTEROL 3 ML NEB INHALATION SCH ×4 (08:14→19:58)
[2018-10-14] MEDS: BUDESONIDE 0.5 MG/2 ML NEBU INHALATION SCH ×2 (08:14→19:58)
[2018-10-14] MEDS: FORMOTEROL FUMARATE 20 MCG/2 ML NEBU INHALATION SCH ×2 (08:14→19:58)
--- NOTE | 2018-10-14 10:21 | ECHOF ---
Referral Reason:[facility] MEASUREMENTS -------- HEIGHT: 170.2 cm WEIGHT: 78.5 kg BP: 101/63 IVSd: 1.3 cm (0.6 - 1.1) LVIDd: 3.8 cm (3.9 - 5.3) LVPWd: 1.6 cm (0.6 - 1.1) IVSs: 1.6 cm LVIDs: 2.8 cm LVPWs: 1.7 cm FINDINGS -------- Sinus rhythm. Limited Study The left ventricular size is normal. There is moderate concentric left ventricular hypertrophy. O verall left ventricular systolic function is low-normal with, an EF between 50 - 55 %. There is no pericardial effusion. CONCLUSIONS -------- 1. Sinus rhythm. 2. Limited Study 3. The left ventricular size is normal. 4. There is moderate concentric left ventricular hypertrophy. 5. Overall left ventricular systolic function is low-normal with, an EF between 50 - 55 %. 6. There is no pericardial effusion. PRUNE WASHER: Noy Ta RDCS
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
[2018-10-14] MEDS: VANCOMYCIN 1,500 MG in SODIUM CHLORIDE 0.9% 250 ML IVPB SCH (12:22)
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
[2018-10-14] MEDS: SODIUM CHLORIDE 0.9% 1,000 ML IV SCH ×2 (19:42→22:37)
[2018-10-14] MEDS: ACETAMINOPHEN TAB 500 MG TAB PO PRN (21:18)
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
[2018-10-15] MEDS ORDERED: VANCOMYCIN TROUGH DUE 1 EACH MISC MISCELLANE ONE (02:00)
[2018-10-15] MEDS: VANCOMYCIN 1,500 MG in SODIUM CHLORIDE 0.9% 250 ML IVPB SCH ×2 (03:37→18:09)
[2018-10-15] MEDS: LEVOTHYROXINE 75 MCG TAB PO SCH (07:00)
[2018-10-15] MEDS: FUROSEMIDE 10 MG/ML 4 ML VIAL IV SCH ×2 (07:04→20:06)
[2018-10-15 07:21] LABS: Basophils % (A) 0 %; Eosinophils # (A) 0.1 k/uL (0-0.7); Eosinophils % (A) 0 %; HCT 32.4 % (34.0-46.0); Hypochromasia Slight; Lymphocytes # (A) 0.9 k/uL (1.0-4.8); Lymphocytes % (A) 4 %; MCH 28.3 pg (25.0-35.0); MCHC 30.9 g/dL (31.0-37.0); MCV 91.3 fL (80.0-100.0); Mean Platelet Volume 7.2; Monocytes # (A) 1.1 k/uL (0-1.0); Monocytes % (A) 5 %; Neutrophils # (A) 19.2 k/uL (1.3-7.7); Neutrophils % (A) 90 %; Platelet Count 342 k/uL (150-450); RBC 3.55 m/uL (3.80-5.40); RDW 13.9 % (11.5-15.5); WBC 21.4 k/uL (3.8-10.6)
[2018-10-15 07:33] LABS: Potassium 3.3 mmol/L (3.5-5.1)
[2018-10-15] MEDS: IPRATROPIUM-ALBUTEROL 3 ML NEB INHALATION SCH ×4 (07:38→20:04)
[2018-10-15] MEDS: BUDESONIDE 0.5 MG/2 ML NEBU INHALATION SCH ×2 (07:38→20:04)
[2018-10-15] MEDS: FORMOTEROL FUMARATE 20 MCG/2 ML NEBU INHALATION SCH ×2 (07:39→20:18)
[2018-10-15] MEDS: ESLICARBAZEPINE ACETATE 800 MG PO SCH (09:25)
[2018-10-15] MEDS: PANTOPRAZOLE 40 MG/10 ML VIAL IVP SCH (09:25)
[2018-10-15] MEDS: ASPIRIN 81 MG PO SCH (09:26)
[2018-10-15] MEDS: AMIODARONE 200 MG TAB PO SCH (09:26)
[2018-10-15] MEDS: APIXABAN 5 MG TAB PO SCH ×2 (09:26→20:06)
[2018-10-15] MEDS: levETIRAcetam 500 MG TAB PO SCH ×2 (09:26→20:05)
[2018-10-15] MEDS: METOPROLOL TARTRATE 12.5 MG TAB PO SCH ×2 (09:26→20:05)
[2018-10-15] MEDS: NYSTATIN 100,000 UNIT/GM OINT 30 GM TUBE TOPICAL SCH (09:26)
[2018-10-15] MEDS: LEVOFLOXACIN 750MG-D5W PMX 750 MG in DEXTROSE/WATER 1 150ML.BAG IVPB SCH (09:26)
[2018-10-15] MEDS: POLYETHYLENE GLYCOL 3350 17 GM POWD.PACK PO SCH (09:26)
[2018-10-15] MEDS ORDERED: POTASSIUM CHLORIDE ER 20 MEQ TAB.ER PO SCH (12:00)
[2018-10-15] MEDS: POTASSIUM BICARBONATE/CIT AC 20 MEQ TABLET.EFF PO SCH ×3 (12:13→16:15)
--- NOTE | 2018-10-15 13:40 | FL ---
EXAMINATION TYPE: FL barium swallow w video DATE OF EXAM: 10/15/2018 MODIFIED SWALLOW / DEGLUTITION STUDY CLINICAL HISTORY: Dysphagia. History of prior stroke. Rule out aspiration. TECHNIQUE: Deglutition study is performed utilizing nectar thick liquid barium and barium thick appl esauce. COMPARISON: None. FINDINGS: The oral and pharyngeal phases show some delay in initiation with satisfactory propagation with all modalities tested. There is no evidence of penetration or aspiration with 2 modalities teste d. No significant pharyngeal residue was appreciated. IMPRESSION: No penetration or aspiration observed. Please refer to speech therapist notes for furthe r details if necessary.
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
--- NOTE | 2018-10-15 17:37 | XR ---
EXAMINATION TYPE: XR chest 2V DATE OF EXAM: 10/15/2018 COMPARISON: CTA chest and chest x-ray October 13, 2018 HISTORY: CHF progress study. TECHNIQUE: Frontal and lateral views of the chest are obtained. FINDINGS: There is persistent low lung volumes and cardiomegaly with small bilateral pleural effusio ns and associated bibasilar atelectasis and/or infiltrate along with mild/moderate central vascular c ongestion. The osseous structures are intact. IMPRESSION: Suspected CHF exacerbation as there is cardiomegaly with low lung volumes and mild/moder ate central vascular congestion with small to borderline moderate bilateral pleural effusions and ass ociated compressive atelectasis. No significant change from 2 days earlier.
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
[2018-10-16] MEDS ORDERED: FUROSEMIDE 10 MG/ML 2 ML VIAL IV ONE (06:28)
[2018-10-16] MEDS: PANTOPRAZOLE 40 MG TABLET PO SCH (06:45)
[2018-10-16] MEDS: LEVOTHYROXINE 75 MCG TAB PO SCH (06:45)
[2018-10-16 07:09] LABS: Basophils % (A) 0 %; Eosinophils # (A) 0.1 k/uL (0-0.7); Eosinophils % (A) 1 %; HCT 29.6 % (34.0-46.0); HGB 9.7 gm/dL (11.4-16.0); Lymphocytes # (A) 0.9 k/uL (1.0-4.8); Lymphocytes % (A) 5 %; MCHC 32.7 g/dL (31.0-37.0); MCV 88.7 fL (80.0-100.0); Mean Platelet Volume 7.5; Monocytes # (A) 0.9 k/uL (0-1.0); Monocytes % (A) 5 %; Neutrophils # (A) 15.3 k/uL (1.3-7.7); Neutrophils % (A) 88 %; Platelet Count 330 k/uL (150-450); RBC 3.34 m/uL (3.80-5.40); RDW 14.4 % (11.5-15.5); WBC 17.5 k/uL (3.8-10.6)
[2018-10-16 07:22] LABS: Calcium 8.5 mg/dL (8.4-10.2); Potassium 3.4 mmol/L (3.5-5.1)
[2018-10-16] MEDS: IPRATROPIUM-ALBUTEROL 3 ML NEB INHALATION SCH ×4 (08:15→20:16)
[2018-10-16] MEDS: BUDESONIDE 0.5 MG/2 ML NEBU INHALATION SCH ×2 (08:15→20:15)
[2018-10-16] MEDS: FORMOTEROL FUMARATE 20 MCG/2 ML NEBU INHALATION SCH ×2 (08:15→20:16)
[2018-10-16] MEDS ORDERED: Potassium Replacement Protocol 1 EACH MISC MISCELLANE PRN (08:26)
[2018-10-16] MEDS: ESLICARBAZEPINE ACETATE 800 MG PO SCH (09:05)
[2018-10-16] MEDS: POLYETHYLENE GLYCOL 3350 17 GM POWD.PACK PO SCH (09:05)
[2018-10-16] MEDS: NYSTATIN 100,000 UNIT/GM OINT 30 GM TUBE TOPICAL SCH (09:12)
[2018-10-16] MEDS: APIXABAN 5 MG TAB PO SCH ×2 (09:12→21:14)
[2018-10-16] MEDS: METOPROLOL TARTRATE 12.5 MG TAB PO SCH ×2 (09:12→21:15)
[2018-10-16] MEDS: levETIRAcetam 500 MG TAB PO SCH ×2 (09:12→21:14)
[2018-10-16] MEDS: AMIODARONE 200 MG TAB PO SCH (09:12)
[2018-10-16] MEDS: ASPIRIN 81 MG PO SCH (09:13)
[2018-10-16] MEDS: FUROSEMIDE 10 MG/ML 4 ML VIAL IV SCH ×2 (09:13→21:15)
[2018-10-16] MEDS: POTASSIUM CHLORIDE 10 MEQ in WATER FOR INJECTION 1 100ML.BAG IVPB SCH ×4 (09:17→12:12)
[2018-10-16] MEDS: VANCOMYCIN 1,500 MG in SODIUM CHLORIDE 0.9% 250 ML IVPB SCH (11:29)
[2018-10-16] MEDS: SODIUM CHLORIDE 0.9% 1,000 ML IV SCH (12:12)
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
[2018-10-17] MEDS: VANCOMYCIN 1,500 MG in SODIUM CHLORIDE 0.9% 250 ML IVPB SCH ×2 (04:36→20:45)
[2018-10-17] MEDS: LEVOTHYROXINE 75 MCG TAB PO SCH (06:27)
[2018-10-17] MEDS: PANTOPRAZOLE 40 MG TABLET PO SCH (06:27)
[2018-10-17 07:22] LABS: Basophils # (A) 0.1 k/uL (0-0.2); Basophils % (A) 0 %; Eosinophils # (A) 0.1 k/uL (0-0.7); Eosinophils % (A) 1 %; HCT 30.1 % (34.0-46.0); HGB 9.8 gm/dL (11.4-16.0); Hypochromasia Slight; Lymphocytes # (A) 1.1 k/uL (1.0-4.8); Lymphocytes % (A) 8 %; MCH 29.3 pg (25.0-35.0); MCHC 32.6 g/dL (31.0-37.0); MCV 89.8 fL (80.0-100.0); Mean Platelet Volume 7.5; Monocytes # (A) 1.1 k/uL (0-1.0); Monocytes % (A) 7 %; Neutrophils # (A) 12.6 k/uL (1.3-7.7); Neutrophils % (A) 83 %; Platelet Count 292 k/uL (150-450); RBC 3.35 m/uL (3.80-5.40); RDW 14.3 % (11.5-15.5); WBC 15.1 k/uL (3.8-10.6)
[2018-10-17 07:39] LABS: Calcium 8.8 mg/dL (8.4-10.2); Potassium 3.8 mmol/L (3.5-5.1)
[2018-10-17] MEDS: BUDESONIDE 0.5 MG/2 ML NEBU INHALATION SCH ×2 (07:48→21:32)
[2018-10-17] MEDS: IPRATROPIUM-ALBUTEROL 3 ML NEB INHALATION SCH ×4 (07:48→21:33)
[2018-10-17] MEDS: FORMOTEROL FUMARATE 20 MCG/2 ML NEBU INHALATION SCH ×2 (08:00→21:33)
[2018-10-17] MEDS: AMIODARONE 200 MG TAB PO SCH (09:32)
[2018-10-17] MEDS: METOPROLOL TARTRATE 12.5 MG TAB PO SCH ×2 (09:32→20:44)
[2018-10-17] MEDS: FUROSEMIDE 10 MG/ML 4 ML VIAL IV SCH ×2 (09:32→20:45)
[2018-10-17] MEDS: LEVOFLOXACIN 750 MG TAB PO SCH (09:32)
[2018-10-17] MEDS: levETIRAcetam 500 MG TAB PO SCH ×2 (09:32→20:44)
[2018-10-17] MEDS: APIXABAN 5 MG TAB PO SCH ×2 (09:33→20:44)
[2018-10-17] MEDS: ASPIRIN 81 MG PO SCH (09:33)
[2018-10-17] MEDS: ESLICARBAZEPINE ACETATE 800 MG PO SCH (09:33)
[2018-10-17] MEDS: POLYETHYLENE GLYCOL 3350 17 GM POWD.PACK PO SCH (09:33)
[2018-10-17] MEDS: NYSTATIN 100,000 UNIT/GM OINT 30 GM TUBE TOPICAL SCH (09:34)
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
[2018-10-17] MEDS: ACETAMINOPHEN TAB 500 MG TAB PO PRN (16:42)
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
[2018-10-17] MEDS: ALPRAZolam 0.25 MG TAB PO PRN (20:44)
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
[2018-10-18] MEDS ORDERED: ANIDULAFUNGIN 200 MG in SODIUM CHLORIDE 0.9% 200 ML IVPB ONE (01:00)
[2018-10-18] MEDS: SODIUM CHLORIDE 0.9% 1,000 ML IV SCH ×2 (06:12→23:34)
[2018-10-18] MEDS: PANTOPRAZOLE 40 MG TABLET PO SCH (06:12)
[2018-10-18] MEDS: LEVOTHYROXINE 75 MCG TAB PO SCH (06:12)
[2018-10-18] MEDS: FORMOTEROL FUMARATE 20 MCG/2 ML NEBU INHALATION SCH ×2 (09:25→20:52)
[2018-10-18] MEDS: IPRATROPIUM-ALBUTEROL 3 ML NEB INHALATION SCH ×4 (09:25→20:53)
[2018-10-18] MEDS: BUDESONIDE 0.5 MG/2 ML NEBU INHALATION SCH ×2 (09:25→20:52)
[2018-10-18] MEDS: FUROSEMIDE 10 MG/ML 4 ML VIAL IV SCH (09:28)
[2018-10-18] MEDS: POLYETHYLENE GLYCOL 3350 17 GM POWD.PACK PO SCH (09:29)
[2018-10-18] MEDS: METOPROLOL TARTRATE 12.5 MG TAB PO SCH ×2 (09:29→21:04)
[2018-10-18] MEDS: AMIODARONE 200 MG TAB PO SCH (09:29)
[2018-10-18] MEDS: ASPIRIN 81 MG PO SCH (09:29)
[2018-10-18] MEDS: APIXABAN 5 MG TAB PO SCH ×2 (09:29→21:03)
[2018-10-18] MEDS: levETIRAcetam 500 MG TAB PO SCH ×2 (09:29→21:03)
[2018-10-18] MEDS: NYSTATIN 100,000 UNIT/GM OINT 30 GM TUBE TOPICAL SCH (09:31)
[2018-10-18] MEDS: ESLICARBAZEPINE ACETATE 800 MG PO SCH (09:31)
[2018-10-18] MEDS ORDERED: VANCOMYCIN TROUGH DUE 1 EACH MISC MISCELLANE ONE (10:00)
[2018-10-18 10:04] LABS: Potassium 3.7 mmol/L (3.5-5.1)
[2018-10-18 10:19] LABS: Basophils # (A) 0.1 k/uL (0-0.2); Basophils % (A) 0 %; Eosinophils % (A) 0 %; HGB 10.3 gm/dL (11.4-16.0); Hypochromasia Slight; Lymphocytes # (A) 1.3 k/uL (1.0-4.8); Lymphocytes % (A) 6 %; MCH 28.8 pg (25.0-35.0); MCHC 32.1 g/dL (31.0-37.0); MCV 89.5 fL (80.0-100.0); Monocytes # (A) 1.4 k/uL (0-1.0); Monocytes % (A) 7 %; Neutrophils # (A) 17.3 k/uL (1.3-7.7); Neutrophils % (A) 85 %; Platelet Count 328 k/uL (150-450); RBC 3.57 m/uL (3.80-5.40); RDW 14.3 % (11.5-15.5); WBC 20.4 k/uL (3.8-10.6)
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
[2018-10-18] MEDS: ALPRAZolam 0.25 MG TAB PO PRN (21:03)
[2018-10-18] MEDS: ANIDULAFUNGIN 100 MG in SODIUM CHLORIDE 0.9% 100 ML IVPB SCH (21:03)
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
[2018-10-19] MEDS: LEVOTHYROXINE 75 MCG TAB PO SCH (05:47)
[2018-10-19] MEDS: PANTOPRAZOLE 40 MG TABLET PO SCH (05:47)
[2018-10-19] MEDS: FORMOTEROL FUMARATE 20 MCG/2 ML NEBU INHALATION SCH ×2 (08:19→21:07)
[2018-10-19] MEDS: BUDESONIDE 0.5 MG/2 ML NEBU INHALATION SCH ×2 (08:19→21:07)
[2018-10-19] MEDS: IPRATROPIUM-ALBUTEROL 3 ML NEB INHALATION SCH ×4 (08:19→21:07)
[2018-10-19] MEDS: POLYETHYLENE GLYCOL 3350 17 GM POWD.PACK PO SCH (08:57)
[2018-10-19] MEDS: LEVOFLOXACIN 750 MG TAB PO SCH (08:58)
[2018-10-19] MEDS: AMIODARONE 200 MG TAB PO SCH (08:58)
[2018-10-19] MEDS: levETIRAcetam 500 MG TAB PO SCH ×2 (08:58→20:59)
[2018-10-19] MEDS: METOPROLOL TARTRATE 12.5 MG TAB PO SCH ×2 (08:58→21:00)
[2018-10-19] MEDS: FUROSEMIDE 20 MG TAB PO SCH (08:58)
[2018-10-19] MEDS: APIXABAN 5 MG TAB PO SCH ×2 (08:58→20:59)
[2018-10-19] MEDS: NYSTATIN 100,000 UNIT/GM OINT 30 GM TUBE TOPICAL SCH (08:59)
[2018-10-19] MEDS: ESLICARBAZEPINE ACETATE 800 MG PO SCH (08:59)
[2018-10-19 15:36] VITALS: BMI 26.6
[2018-10-19] MEDS: SODIUM CHLORIDE 0.9% 1,000 ML IV SCH (20:52)
[2018-10-19] MEDS: ANIDULAFUNGIN 100 MG in SODIUM CHLORIDE 0.9% 100 ML IVPB SCH (20:59)
[2018-10-20] MEDS: D5W WITH KCL 20 MEQ/L 1,000 ML IV SCH (03:12)
[2018-10-20] MEDS: LEVOTHYROXINE 75 MCG TAB PO SCH (05:37)
[2018-10-20] MEDS: IPRATROPIUM-ALBUTEROL 3 ML NEB INHALATION SCH ×4 (07:51→19:20)
[2018-10-20] MEDS: BUDESONIDE 0.5 MG/2 ML NEBU INHALATION SCH ×2 (07:51→19:20)
[2018-10-20] MEDS: FORMOTEROL FUMARATE 20 MCG/2 ML NEBU INHALATION SCH ×2 (07:51→19:32)
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
[2018-10-20] MEDS: APIXABAN 5 MG TAB PO SCH ×2 (09:48→21:24)
[2018-10-20] MEDS: METOPROLOL TARTRATE 12.5 MG TAB PO SCH ×2 (09:49→21:23)
[2018-10-20] MEDS: FUROSEMIDE 20 MG TAB PO SCH (09:49)
[2018-10-20] MEDS: AMIODARONE 200 MG TAB PO SCH (09:49)
[2018-10-20] MEDS: PANTOPRAZOLE 40 MG TABLET PO SCH (09:49)
[2018-10-20] MEDS: ESLICARBAZEPINE ACETATE 800 MG PO SCH (09:49)
[2018-10-20] MEDS: POLYETHYLENE GLYCOL 3350 17 GM POWD.PACK PO SCH (09:50)
[2018-10-20] MEDS: levETIRAcetam 500 MG TAB PO SCH ×2 (10:46→22:06)
--- NOTE | 2018-10-20 13:38 | XR ---
EXAMINATION TYPE: XR chest 1V portable DATE OF EXAM: 10/20/2018 HISTORY: pneumonia. REFERENCE: Previous study dated 10/15/2018. FINDINGS: Unfortunately, the patient's chin projects over the upper chest. The heart is mildly enlarged. There is improved aeration of both lung bases. I suspect a small right effusion. IMPRESSION: IMPROVED AERATION, BOTH LUNG BASES.
[2018-10-20] MEDS: NYSTATIN 100,000 UNIT/GM OINT 30 GM TUBE TOPICAL SCH (21:09)
[2018-10-20] MEDS: ACETAMINOPHEN TAB 500 MG TAB PO PRN (21:23)
[2018-10-20] MEDS: ANIDULAFUNGIN 100 MG in SODIUM CHLORIDE 0.9% 100 ML IVPB SCH (21:24)
[2018-10-21] MEDS: D5W WITH KCL 20 MEQ/L 1,000 ML IV SCH ×2 (04:33→17:43)
--- NOTE | 2018-10-21 07:38 | XR ---
EXAMINATION TYPE: XR chest 1V portable DATE OF EXAM: 10/21/2018 HISTORY: chf. REFERENCE: Previous study dated 10/20/2018. FINDINGS: The heart is enlarged. There is vascular congestion and interstitial change. There are smal l bilateral effusions. IMPRESSION: CHANGES CONSISTENT WITH MILD CONGESTIVE HEART FAILURE.
[2018-10-21] MEDS: IPRATROPIUM-ALBUTEROL 3 ML NEB INHALATION SCH ×4 (07:50→19:27)
[2018-10-21] MEDS: BUDESONIDE 0.5 MG/2 ML NEBU INHALATION SCH ×2 (07:50→19:27)
[2018-10-21] MEDS: FORMOTEROL FUMARATE 20 MCG/2 ML NEBU INHALATION SCH ×2 (07:50→19:27)
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
[2018-10-21 09:16] LABS: Anisocytosis Slight; Basophils # (A) 0.1 k/uL (0-0.2); Basophils % (A) 1 %; Eosinophils % (A) 0 %; HGB 10.7 gm/dL (11.4-16.0); Hypochromasia Moderate; Lymphocytes # (A) 2.1 k/uL (1.0-4.8); Lymphocytes % (A) 14 %; MCHC 31.6 g/dL (31.0-37.0); MCV 88.7 fL (80.0-100.0); Mean Platelet Volume 10.3; Monocytes # (A) 0.6 k/uL (0-1.0); Monocytes % (A) 4 %; Neutrophils # (A) 12.3 k/uL (1.3-7.7); Neutrophils % (A) 80 %; Platelet Count 343 k/uL (150-450); RBC 3.84 m/uL (3.80-5.40); WBC 15.4 k/uL (3.8-10.6)
[2018-10-21 09:54] LABS: Potassium 3.8 mmol/L (3.5-5.1)
[2018-10-21] MEDS: METOPROLOL TARTRATE 12.5 MG TAB PO SCH ×2 (11:00→20:20)
[2018-10-21] MEDS: PANTOPRAZOLE 40 MG TABLET PO SCH (11:00)
[2018-10-21] MEDS: APIXABAN 5 MG TAB PO SCH ×2 (11:00→20:20)
[2018-10-21] MEDS: FUROSEMIDE 20 MG TAB PO SCH (11:00)
[2018-10-21] MEDS: LEVOTHYROXINE 75 MCG TAB PO SCH (11:01)
[2018-10-21] MEDS: POLYETHYLENE GLYCOL 3350 17 GM POWD.PACK PO SCH (11:01)
[2018-10-21] MEDS: AMIODARONE 200 MG TAB PO SCH (11:01)
[2018-10-21] MEDS: ESLICARBAZEPINE ACETATE 800 MG PO SCH (13:11)
[2018-10-21] MEDS: LEVOFLOXACIN 750 MG TAB PO SCH (13:16)
[2018-10-21] MEDS: levETIRAcetam 500 MG TAB PO SCH ×2 (13:16→20:20)
[2018-10-21] MEDS: NYSTATIN 100,000 UNIT/GM OINT 30 GM TUBE TOPICAL SCH (16:27)
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
[2018-10-21] MEDS: ACETAMINOPHEN TAB 500 MG TAB PO PRN (20:20)
[2018-10-21] MEDS: ANIDULAFUNGIN 100 MG in SODIUM CHLORIDE 0.9% 100 ML IVPB SCH (20:20)
[2018-10-22] MEDS: LEVOTHYROXINE 75 MCG TAB PO SCH (05:38)
[2018-10-22 07:43] LABS: Basophils # (A) 0.1 k/uL (0-0.2); Basophils % (A) 1 %; Eosinophils % (A) 0 %; HCT 33.9 % (34.0-46.0); HGB 10.6 gm/dL (11.4-16.0); Hypochromasia Moderate; Lymphocytes # (A) 1.6 k/uL (1.0-4.8); Lymphocytes % (A) 10 %; MCH 28.7 pg (25.0-35.0); MCHC 31.2 g/dL (31.0-37.0); MCV 91.8 fL (80.0-100.0); Mean Platelet Volume 7.2; Monocytes # (A) 0.7 k/uL (0-1.0); Monocytes % (A) 4 %; Neutrophils # (A) 12.5 k/uL (1.3-7.7); Neutrophils % (A) 83 %; Platelet Count 309 k/uL (150-450); RBC 3.69 m/uL (3.80-5.40); RDW 14.3 % (11.5-15.5); WBC 15.1 k/uL (3.8-10.6)
[2018-10-22 08:01] LABS: Calcium 8.8 mg/dL (8.4-10.2); Potassium 3.7 mmol/L (3.5-5.1)
[2018-10-22] MEDS: IPRATROPIUM-ALBUTEROL 3 ML NEB INHALATION SCH ×4 (08:26→20:01)
[2018-10-22] MEDS: FORMOTEROL FUMARATE 20 MCG/2 ML NEBU INHALATION SCH ×2 (08:26→20:01)
[2018-10-22] MEDS: BUDESONIDE 0.5 MG/2 ML NEBU INHALATION SCH ×2 (08:26→20:01)
[2018-10-22] MEDS: PANTOPRAZOLE 40 MG TABLET PO SCH (08:51)
[2018-10-22] MEDS: APIXABAN 5 MG TAB PO SCH ×2 (08:51→21:38)
[2018-10-22] MEDS: METOPROLOL TARTRATE 12.5 MG TAB PO SCH ×2 (08:51→21:38)
[2018-10-22] MEDS: AMIODARONE 200 MG TAB PO SCH (08:51)
[2018-10-22] MEDS: levETIRAcetam 500 MG TAB PO SCH ×2 (08:52→21:38)
[2018-10-22] MEDS: NYSTATIN 100,000 UNIT/GM OINT 30 GM TUBE TOPICAL SCH (08:52)
[2018-10-22] MEDS: ESLICARBAZEPINE ACETATE 800 MG PO SCH (08:52)
[2018-10-22] MEDS: POLYETHYLENE GLYCOL 3350 17 GM POWD.PACK PO SCH (08:52)
[2018-10-22] MEDS: DEXTROSE 5%-0.45% NACL 1,000 ML IV SCH (13:26)
[2018-10-22] MEDS: ANIDULAFUNGIN 100 MG in SODIUM CHLORIDE 0.9% 100 ML IVPB SCH (21:38)
--- NOTE | 2018-10-22 23:52 | PN ---
PROGRESS NOTE DATE OF SERVICE: October 22, 2018. PRESENTING COMPLAINT: Tired. INTERVAL HISTORY: Patient admitted with pneumonia. Doing somewhat better. The patient's manager group home at the bedside. The patient started to eat much better. The patient does follow commands at baseline, has shaking episodes. REVIEW OF SYSTEMS: Difficult to do because patient is noncommunicative. Rest as above. CURRENT MEDICATIONS: Reviewed that include DuoNeb, and Anidulafungin, Eliquis, Keppra, Levaquin, Synthroid, Lopressor. PHYSICAL EXAMINATION: VITAL SIGNS: Temperature 98.3, pulse 72, respiration 16, blood pressure 136/67, pulse ox 96 percent on room air. GENERAL APPEARANCE: Lying in bed, awake with some shaking episodes. EYES: Pupils equal. Conjunctivae normal. HEENT: External appearance of nose and ears normal. Oral cavity normal. NECK: JVD unable to assess. Mass not palpable. RESPIRATORY: Effort increased. LUNGS: Fair air entry. CARDIOVASCULAR: 1st and 2nd sounds normal. No edema. ABDOMEN: Soft, nontender. Liver and spleen not palpable. PSYCHIATRY: Unable to assess. NEUROLOGICAL: Shaking episodes. Moving all 4 limbs. Follows simple commands. INVESTIGATIONS: White count 15.1, hemoglobin 10.6. Sodium 150, potassium 3.7, BUN 36, creatinine 1.18, chloride is 115. ASSESSMENT: 1. Left lower lobe pneumonia with clinical improvement. 2. Hypernatremia from free water deficit. The patient does have difficulty with fluids. 3. Coronary artery disease with recent myocardial infarction. 4. Chronic mental retardation. 5. Chronic seizure disorder. 6. Intermittent asthma. 7. Chronic dysphagia. 8. Paroxysmal atrial fibrillation. 9. Troponin leak, not from acute myocardial infarction probably hemodynamic mismatch. 10.Positive blood cultures with Rocio albicans and Staph capitis. 11.CODE STATUS: CODE. PLAN: Care was discussed at length with the caregiver at the bedside. We will increase patient's IV fluids to D5 0.45 at 100 mL an hour. Check electrolytes in the morning. We will antibiotics for discharge as per Dr. Larson. Care was also discussed with the pillowcase maker. MMODL / IJN: [id number] /
[2018-10-23] MEDS: LEVOTHYROXINE 75 MCG TAB PO SCH (05:32)
[2018-10-23] MEDS: DEXTROSE 5%-0.45% NACL 1,000 ML IV SCH ×2 (07:19→08:04)
[2018-10-23] MEDS: POLYETHYLENE GLYCOL 3350 17 GM POWD.PACK PO SCH (08:03)
[2018-10-23] MEDS: levETIRAcetam 500 MG TAB PO SCH ×2 (08:03→08:04)
[2018-10-23] MEDS: METOPROLOL TARTRATE 12.5 MG TAB PO SCH (08:03)
[2018-10-23] MEDS: LEVOFLOXACIN 750 MG TAB PO SCH (08:04)
[2018-10-23] MEDS: AMIODARONE 200 MG TAB PO SCH (08:04)
[2018-10-23] MEDS: ESLICARBAZEPINE ACETATE 800 MG PO SCH (08:04)
[2018-10-23] MEDS: PANTOPRAZOLE 40 MG TABLET PO SCH (08:04)
[2018-10-23] MEDS: APIXABAN 5 MG TAB PO SCH (08:04)
[2018-10-23] MEDS: NYSTATIN 100,000 UNIT/GM OINT 30 GM TUBE TOPICAL SCH (08:05)
[2018-10-23] MEDS: BUDESONIDE 0.5 MG/2 ML NEBU INHALATION SCH (08:09)
[2018-10-23] MEDS: IPRATROPIUM-ALBUTEROL 3 ML NEB INHALATION SCH ×3 (08:09→15:34)
[2018-10-23] MEDS: FORMOTEROL FUMARATE 20 MCG/2 ML NEBU INHALATION SCH (08:09)
[2018-10-23 10:28] LABS: Basophils # (A) 0.1 k/uL (0-0.2); Basophils % (A) 0 %; Eosinophils % (A) 0 %; HCT 34.2 % (34.0-46.0); HGB 10.6 gm/dL (11.4-16.0); Hypochromasia Marked; Lymphocytes # (A) 1.5 k/uL (1.0-4.8); Lymphocytes % (A) 11 %; MCHC 31.1 g/dL (31.0-37.0); MCV 93.3 fL (80.0-100.0); Mean Platelet Volume 8.2; Monocytes # (A) 0.5 k/uL (0-1.0); Monocytes % (A) 3 %; Neutrophils # (A) 11.6 k/uL (1.3-7.7); Neutrophils % (A) 83 %; Platelet Count 315 k/uL (150-450); RBC 3.67 m/uL (3.80-5.40); RDW 14.8 % (11.5-15.5); WBC 13.9 k/uL (3.8-10.6)
[2018-10-23 10:46] LABS: Calcium 8.6 mg/dL (8.4-10.2); Potassium 3.5 mmol/L (3.5-5.1)
[2018-10-23 14:58] VITALS: BP 124/72; RESP 12; TEMP 98.7
[2018-10-23 15:46] VITALS: PULSE 76
[2018-10-24] MEDS ORDERED: LEVOFLOXACIN 750 MG TAB PO SCH (09:00)
--- NOTE | 2018-10-24 10:12 | DS ---
DISCHARGE SUMMARY DATE OF ADMISSION: 10/12/2018 DATE OF DISCHARGE: 10/23/2018 FINAL DIAGNOSES: 1. Left lower lobe pneumonia, suspect gram-negative organism. 2. Hypernatremia from free water deficit. 3. Coronary artery disease with recent myocardial infarction. 4. Chronic mental retardation. 5. Chronic seizure disorder. 6. Intermittent asthma. 7. Chronic dysphagia. 8. Paroxysmal atrial fibrillation. 9. Troponin leak not from myocardial infarction but from hemodynamic mismatch. 10.Positive blood cultures with Rocio and Staph capitis. 11.CODE STATUS: DO NOT RESUSCITATE. NO CODE. 12.Acute congestive heart failure from diastolic dysfunction. Ejection fraction 50% to 55%. 13.Hypertensive heart disease. HOSPITAL COURSE: This patient presented with the above problems. At a baseline does have dysphagia, has a pureed diet, doing well. The patient was seen by Dr. Larson from Infectious Disease; cardiology, Dr. Mcfarland. Also had antibiotics, have been discontinued. Overall doing better. Care was discussed with the care provider. On examination, temperature 98.7, pulse 77, respiration 12, blood pressure 124/72, pulse ox 95% on room air. LUNGS: Fair entry. CARDIOVASCULAR: First and second sounds normal. The patient does follow commands. Baseline has shakes and tremors. INVESTIGATIONS: White count 13.9. Potassium 3.5. BUN 29, creatinine 0.96. DISCHARGE MEDICATIONS: 1. Ventolin 2.5 q.4 p.r.n. 2. Pulmicort 0.5 b.i.d. 3. Caltrate with vitamin D one tablet p.o. daily. 4. Synthroid 75 mcg a day. 5. Mycostatin one application topical daily. 6. MiraLAX 8.5 grams p.o. daily. 7. SimplyThick 15 grams one dose as directed. 8. Aptiom 800 mg p.o. daily. 9. Soolantra 1% cream topical daily. 10.Eliquis 5 mg p.o. b.i.d. 11.Aspirin 81 mg p.o. daily. 12.Vitamin D3, 3000 units p.o. daily. 13.Lopressor 12.5 p.o. b.i.d. 14.Keppra 1000 mg p.o. q.12. 15.Cordarone 200 mg p.o. daily. 16.Pepcid 20 mg p.o. b.i.d. 17.Lasix 20 mg p.o. daily. Additionally, the patient's 2D echocardiogram showed EF of 50% to 55%. DISPOSITION: intermediate. Follow up with [facility] in 1 week; Dr. Mateo Herrera in one week. [facility] to follow. Dr. Chinchilla on 10/30/2018. DISPOSITION: [facility]. MMODL / IJN: [id number] /
== END 2018-10-23 16:50 | disposition home or self-care (01) | DRG 871 ==
LOC: EC 07:38 → 3SCARD 10:36 → 4SSUR 10-19 22:12
PROVIDERS: ADMIT Hospitalist; ATTEND Hospitalist
DX: A41.1 Sepsis due to other specified staphylococcus (principal); J96.01 Acute respiratory failure with hypoxia; G82.50 Quadriplegia, unspecified; G93.41 Metabolic encephalopathy; I50.23 Acute on chronic systolic (congestive) heart failure; J15.6 Pneumonia due to other Gram-negative bacteria; I21.4 Non-ST elevation (NSTEMI) myocardial infarction; N17.9 Acute kidney failure, unspecified; E87.2 Acidosis; F72 Severe intellectual disabilities; E87.0 Hyperosmolality and hypernatremia; I48.92 Unspecified atrial flutter; J45.21 Mild intermittent asthma with (acute) exacerbation; E87.1 Hypo-osmolality and hyponatremia; B37.49 Other urogenital candidiasis; I27.20 Pulmonary hypertension, unspecified; I11.0 Hypertensive heart disease with heart failure; R13.10 Dysphagia, unspecified; E87.5 Hyperkalemia; I48.0 Paroxysmal atrial fibrillation; F03.90 Unspecified dementia, unspecified severity, without behavioral disturbance, psychotic disturbance, mood disturbance, and anxiety; G40.909 Epilepsy, unspecified, not intractable, without status epilepticus; R32 Unspecified urinary incontinence; E87.6 Hypokalemia; R79.1 Abnormal coagulation profile; H51.0 Palsy (spasm) of conjugate gaze; R00.0 Tachycardia, unspecified; R74.8 Abnormal levels of other serum enzymes; I25.10 Atherosclerotic heart disease of native coronary artery without angina pectoris; Z66 Do not resuscitate; Z99.3 Dependence on wheelchair; Z79.01 Long term (current) use of anticoagulants; Z79.82 Long term (current) use of aspirin; Z79.51 Long term (current) use of inhaled steroids; Z79.899 Other long term (current) drug therapy; Z79.890 Hormone replacement therapy; Z87.820 Personal history of traumatic brain injury; Z88.0 Allergy status to penicillin; Z82.49 Family history of ischemic heart disease and other diseases of the circulatory system
CPT/HCPCS: 36415; 71045; 71046; 71275; 74018; 74230; 76604; 80048; 80053; 80202; 81001; 82140; 82553; 83605; 83690; 83735; 83880; 84484; 85025; 85379; 85610; 87040; 87077; 87086; 87186; 87502; 93005; 93308; 94640; 94760; 96365; 96366; 96367; 96375; 99285

== ENCOUNTER → 2018-10-30 | Outpatient (CLI) | payer MEDICARE, OTHER | LOC: LABWHC1 07:50 | PROVIDERS: ATTEND Psychiatry & Neurology Neurology | DX: G40.209 Localization-related (focal) (partial) symptomatic epilepsy and epileptic syndromes with complex partial seizures, not intractable, without status epilepticus (principal) | CPT/HCPCS: 36415; 80177 ==

== ENCOUNTER 2018-11-07 08:14 | Inpatient (IN) | payer MEDICARE, OTHER ==
[2018-11-07] MEDS ORDERED: IPRATROPIUM-ALBUTEROL 3 ML NEB INHALATION STA (08:44)
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
--- NOTE | 2018-11-07 09:44 | XR ---
EXAMINATION TYPE: XR chest 2V DATE OF EXAM: 11/07/2018 COMPARISON: 10/21/2018 INDICATION: Difficulty breathing, low O2 saturation, asthma TECHNIQUE: Frontal and lateral views of the chest are obtained. FINDINGS: The heart size is moderately prominent. The pulmonary vasculature is normal. Mild infiltrate is at the left base. A small left pleural effusion is present.. There is some linear opacity within the right lower lung field may be some plate atelectasis. IMPRESSION: 1. Developing left lower lobe infiltrate and small left pleural effusion. 2. Mild plate atelectasis right base.
[2018-11-07 10:21] LABS: Albumin 3.3 g/dL (3.5-5.0); Calcium 9.2 mg/dL (8.4-10.2); Magnesium 2.1 mg/dL (1.6-2.3); Partial Thromboplastin Time 26.3 sec (22.0-30.0); Potassium 4.1 mmol/L (3.5-5.1); Prothrombin Time 10.7 sec (9.0-12.0); Total Bilirubin 0.3 mg/dL (0.2-1.3); Total Protein 6.4 g/dL (6.3-8.2)
[2018-11-07 10:40] LABS: Basophils % (A) 0 %; Eosinophils # (A) 0.3 k/uL (0-0.7); Eosinophils % (A) 4 %; HCT 28.5 % (34.0-46.0); Hypochromasia Slight; Lymphocytes # (A) 0.9 k/uL (1.0-4.8); Lymphocytes % (A) 11 %; MCH 28.5 pg (25.0-35.0); MCHC 31.5 g/dL (31.0-37.0); MCV 90.5 fL (80.0-100.0); Mean Platelet Volume 9.5; Monocytes # (A) 0.9 k/uL (0-1.0); Monocytes % (A) 12 %; Neutrophils # (A) 5.4 k/uL (1.3-7.7); Neutrophils % (A) 70 %; Platelet Count 290 k/uL (150-450); RBC 3.15 m/uL (3.80-5.40); RDW 15.2 % (11.5-15.5); WBC 7.7 k/uL (3.8-10.6)
[2018-11-07] MEDS ORDERED: LEVOFLOXACIN 750MG-D5W PMX 750 MG in DEXTROSE/WATER 1 150ML.BAG IVPB STA (10:50)
[2018-11-07] MEDS ORDERED: PNEUMONIA PROTOCOL UTILIZED 1 EACH MISC PO PRN (11:25)
[2018-11-07] MEDS ORDERED: ALBUTEROL NEBULIZED 2.5 MG/3 ML INHALATION PRN (11:25)
[2018-11-07] MEDS ORDERED: ASPIRIN 81 MG PO STA (11:29)
[2018-11-07] MEDS ORDERED: NITROGLYCERIN OINT 1 INCH/GM PACKET TOPICAL STA (11:29)
[2018-11-07] MEDS: NITROGLYCERIN OINT 1 INCH/GM PACKET TOPICAL SCH ×3 (16:26→23:57)
[2018-11-07 18:04] LABS: HCT 30.7 % (34.0-46.0); HGB 9.7 gm/dL (11.4-16.0); Hypochromasia Moderate; MCH 28.8 pg (25.0-35.0); MCHC 31.4 g/dL (31.0-37.0); MCV 91.8 fL (80.0-100.0); Mean Platelet Volume 7.4; Platelet Count 363 k/uL (150-450); RBC 3.35 m/uL (3.80-5.40); WBC 6.8 k/uL (3.8-10.6)
[2018-11-07] MEDS: BUDESONIDE 0.5 MG/2 ML NEBU INHALATION SCH (19:37)
[2018-11-07] MEDS: ALBUTEROL NEBULIZED 2.5 MG/3 ML INHALATION PRN (19:37)
[2018-11-07] MEDS: METOPROLOL TARTRATE 12.5 MG TAB PO SCH (20:30)
[2018-11-07] MEDS: levETIRAcetam 500 MG TAB PO SCH (20:30)
[2018-11-07] MEDS: FAMOTIDINE 20 MG TAB PO SCH (20:31)
[2018-11-07] MEDS: APIXABAN 5 MG TAB PO SCH (20:31)
[2018-11-07 23:12] LABS: Basophils % (A) 0 %; Eosinophils # (A) 0.5 k/uL (0-0.7); Eosinophils % (A) 7 %; HCT 28.5 % (34.0-46.0); HGB 8.8 gm/dL (11.4-16.0); Hypochromasia Slight; Lymphocytes # (A) 0.9 k/uL (1.0-4.8); Lymphocytes % (A) 14 %; MCH 28.3 pg (25.0-35.0); MCHC 30.9 g/dL (31.0-37.0); MCV 91.6 fL (80.0-100.0); Mean Platelet Volume 6.9; Monocytes # (A) 0.7 k/uL (0-1.0); Monocytes % (A) 10 %; Neutrophils # (A) 4.3 k/uL (1.3-7.7); Neutrophils % (A) 65 %; Platelet Count 371 k/uL (150-450); RBC 3.11 m/uL (3.80-5.40); RDW 15.1 % (11.5-15.5); WBC 6.7 k/uL (3.8-10.6)
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
[2018-11-07] MEDS: CLINDAMYCIN 300 MG in DEXTROSE 5% IN WATER 50 ML IVPB SCH ×2 (23:57)
[2018-11-08] MEDS: LEVOTHYROXINE 75 MCG TAB PO SCH (06:12)
[2018-11-08] MEDS: NITROGLYCERIN OINT 1 INCH/GM PACKET TOPICAL SCH ×4 (06:12→23:38)
[2018-11-08 06:34] LABS: Basophils % (A) 0 %; Eosinophils # (A) 0.3 k/uL (0-0.7); Eosinophils % (A) 5 %; HCT 27.8 % (34.0-46.0); HGB 8.6 gm/dL (11.4-16.0); Hypochromasia Slight; Lymphocytes # (A) 0.9 k/uL (1.0-4.8); Lymphocytes % (A) 13 %; MCH 28.5 pg (25.0-35.0); MCHC 31.1 g/dL (31.0-37.0); MCV 91.7 fL (80.0-100.0); Mean Platelet Volume 6.9; Monocytes # (A) 0.8 k/uL (0-1.0); Monocytes % (A) 12 %; Neutrophils # (A) 4.3 k/uL (1.3-7.7); Neutrophils % (A) 66 %; Platelet Count 346 k/uL (150-450); RBC 3.03 m/uL (3.80-5.40); WBC 6.5 k/uL (3.8-10.6)
[2018-11-08] MEDS: ALBUTEROL NEBULIZED 2.5 MG/3 ML INHALATION PRN (07:29)
[2018-11-08] MEDS: BUDESONIDE 0.5 MG/2 ML NEBU INHALATION SCH (07:29)
[2018-11-08] MEDS: AMIODARONE 200 MG TAB PO SCH (08:59)
[2018-11-08] MEDS: CLINDAMYCIN 300 MG in DEXTROSE 5% IN WATER 50 ML IVPB SCH ×6 (08:59→23:37)
[2018-11-08] MEDS: APIXABAN 5 MG TAB PO SCH (08:59)
[2018-11-08] MEDS: ASPIRIN 325 MG TAB PO SCH (08:59)
[2018-11-08] MEDS: METOPROLOL TARTRATE 12.5 MG TAB PO SCH ×2 (09:00→20:45)
[2018-11-08] MEDS: ESLICARBAZEPINE ACETATE 800 MG PO SCH (09:00)
[2018-11-08] MEDS: FUROSEMIDE 20 MG TAB PO SCH (09:00)
[2018-11-08] MEDS: levETIRAcetam 500 MG TAB PO SCH ×2 (09:00→20:44)
[2018-11-08] MEDS: POLYETHYLENE GLYCOL 3350 17 GM POWD.PACK PO SCH (09:00)
[2018-11-08] MEDS: NYSTATIN 100,000UNIT/GM CREAM 30 GM TUBE TOPICAL SCH (09:00)
[2018-11-08] MEDS: CALCIUM CARB-VIT D 500MG-200UN 1 EACH TAB PO SCH (09:00)
[2018-11-08] MEDS: FAMOTIDINE 20 MG TAB PO SCH ×2 (09:02→20:44)
--- NOTE | 2018-11-08 10:09 | CONS ---
CONSULTATION CHIEF COMPLAINT: Shortness of breath. This is a 63-year-old lady who is currently in a [place] [facility] and is admitted to hospital because of hypoxia, shortness of breath and drop in her O2 saturation. Cardiology has been consulted because of mild troponin elevation. The patient has history of dysphagia, paroxysmal atrial fibrillation, seizure disorder, coronary artery disease and prior history of pneumonia. She had recently been in the hospital with a non ST- segment elevation LA also. I have been consulted because of mildly elevated troponin. At the time of my evaluation this morning, she is sitting with her brother. Does not seem to be in any pains and does not have any complaints. PAST MEDICAL HISTORY: Past medical history is significant for mental retardation, seizure disorder, aspirin, dysphagia, and atrial fibrillation. MEDICATIONS: Medications at home included Keppra, MiraLAX, Lopressor, Synthroid, Lasix, Pepcid, Pulmicort, Eliquis, amiodarone, and Ventolin. ALLERGIES: Allergic to PENICILLIN. PAST SURGICAL HISTORY: Significant for craniotomy. SOCIAL HISTORY: Social history is negative for smoking, EtOH abuse or drug abuse. She is wheelchair bound and quadriplegic. REVIEW OF SYSTEMS: I am unable to obtain from the patient. PHYSICAL EXAMINATION: On exam, patient is comfortable at rest. Vital signs are stable. Chest exam reveals good air entry bilaterally. Heart exam reveals first and second heart sounds. No gallop. Has a systolic murmur at the left lower sternal border. Abdomen is soft. Examination of extremities did not reveal any edema. Peripheral pulses are felt. LABS: Labs show that the hemoglobin is 8.6, platelet count is 346. Troponins are mildly elevated at 0.1, 0.3, 0.2, which is similar to the troponins that she has had prior to her discharge. EKG shows sinus rhythm, left anterior fascicular block, nonspecific ST-T wave changes. ASSESSMENT: 1. Shortness of breath secondary to pneumonia. 2. Mild troponin elevation could be due to type 2 myocardial infarction related to hypoxia that she had or could be related to the recent myocardial infarction that she had. 3. Paroxysmal atrial fibrillation. Given her overall prognosis and clinical condition, I believe the optimal way to treat her would be to treat her with medications. I will continue the aspirin, Lasix, Lopressor that she is on and we can switch her to Imdur from the Nitro paste and continue the Eliquis that she is currently on. MMODL / IJN: [id number] /
--- NOTE | 2018-11-08 10:55 | ECHOF ---
Referral Reason:abn trop MEASUREMENTS -------- HEIGHT: 165.1 cm WEIGHT: 77.1 kg BP: IVSd: 1.0 cm (0.6 - 1.1) LVIDd: 4.0 cm (3.9 - 5.3) LVPWd: 1.3 cm (0.6 - 1.1) IVSs: 1.4 cm LVIDs: 3.0 cm LVPWs: 1.5 cm Ao Diam: 2.8 cm (2.0 - 3.7) AV Cusp: 1.9 cm (1.5 - 2.6) LA Diam: 3.3 cm (2.7 - 3.8) MV EXCURSION: 15.271 mm (> 18.000) MV EF SLOPE: 67 mm/s (70 - 150) EPSS: 1.5 cm MV E Edward: 0.89 m/s MV DecT: 237 ms MV A Edward: 1.02 m/s MV E/A Ratio: 0.87 AR PHT: 395 ms RAP: 5.00 mmHg RVSP: 14.73 mmHg FINDINGS -------- Sinus rhythm. This was a technically good study. The left ventricular size is normal. Left ventricular wall thickness is normal. Overall left vent ricular systolic function is low-normal with, an EF between 50 - 55 %. The right ventricle is normal in size. The left atrial size is normal. The right atrial size is normal. Interatrial and interventricular septum intact. Aortic valve is trileaflet and is mildly thickened. Trace amount of aortic regurgitation. The mitral valve leaflets are mildly thickened. Mild mitral regurgitation is present. Mild tricuspid regurgitation present. The right ventricular systolic pressure, as measured by Doppl er, is 14.73mmHg. Trace/mild (physiologic) pulmonic regurgitation. The aortic root size is normal. IVC Not well visulized. There is a moderate, generalized pericardial effusion present. CONCLUSIONS -------- 1. Sinus rhythm. 2. This was a technically good study. 3. The left ventricular size is normal. 4. Left ventricular wall thickness is normal. 5. The right ventricle is normal in size. 6. The left atrial size is normal. 7. The right atrial size is normal. 8. Interatrial and interventricular septum intact. 9. Aortic valve is trileaflet and is mildly thickened. 10. Trace amount of aortic regurgitation. 11. The mitral valve leaflets are mildly thickened. 12. Mild mitral regurgitation is present. 13. Mild tricuspid regurgitation present. 14. The right ventricular systolic pressure, as measured by Doppler, is 14.73mmHg. 15. Trace/mild (physiologic) pulmonic regurgitation. 16. The aortic root size is normal. 17. IVC Not well visulized. PRACTICE ASSISTANT: Noy Ta RDCS
[2018-11-08] MEDS ORDERED: LEVOFLOXACIN 750MG-D5W PMX 750 MG in DEXTROSE/WATER 1 150ML.BAG IVPB SCH (12:00)
--- NOTE | 2018-11-08 15:24 | XR ---
EXAMINATION TYPE: XR chest 2V DATE OF EXAM: 11/08/2018 COMPARISON: 11/07/2018 HISTORY: Follow-up for pneumonia TECHNIQUE: Frontal and lateral views of the chest are obtained. FINDINGS: There is retrocardiac airspace disease and bandlike right lower lung atelectasis. Cardia m ediastinal silhouette is partially obscured but appears mildly enlarged. No pulmonary vascular conges tion. The patient's chin obscures the lung apex and cannot be evaluated. Lateral image is also subopt imal. Osseous structures are grossly intact. IMPRESSION: Persistent retrocardiac opacity may represent a small pleural effusion and atelectasis o r pneumonia in the appropriate clinical setting. Stable bandlike right lower lung atelectasis.
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
[2018-11-08] MEDS: FORMOTEROL FUMARATE 20 MCG/2 ML NEBU INHALATION SCH (19:29)
[2018-11-08] MEDS: BUDESONIDE 1 MG/2 ML NEBU INHALATION SCH (19:29)
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
[2018-11-09] MEDS: NITROGLYCERIN OINT 1 INCH/GM PACKET TOPICAL SCH ×4 (05:03→23:35)
[2018-11-09] MEDS: LEVOTHYROXINE 75 MCG TAB PO SCH (05:03)
[2018-11-09] MEDS: BUDESONIDE 1 MG/2 ML NEBU INHALATION SCH ×2 (09:06→19:41)
[2018-11-09] MEDS: FORMOTEROL FUMARATE 20 MCG/2 ML NEBU INHALATION SCH ×2 (09:06→19:41)
[2018-11-09] MEDS: CLINDAMYCIN 300 MG in DEXTROSE 5% IN WATER 50 ML IVPB SCH ×6 (09:20→23:31)
[2018-11-09] MEDS: NYSTATIN 100,000UNIT/GM CREAM 30 GM TUBE TOPICAL SCH (09:45)
[2018-11-09 10:20] VITALS: BMI 32.4
[2018-11-09] MEDS ORDERED: PROPOFOL 10 MG/ML 20 ML VIAL IV ONE (11:15)
[2018-11-09] MEDS ORDERED: IV FLUID CONTINUATION 1,000 ML IV ONE (11:16)
--- NOTE | 2018-11-09 11:36 | P.PCN ---
Date of Procedure: 11/09/18 Procedure(s) Performed: PREOPERATIVE DIAGNOSIS: Aspiration pneumonia POSTOPERATIVE DIAGNOSIS: Same PROCEDURE: EGD with PEG tube placement SURGEON: José Luis EBL: Minimal ANESTHESIA: Sedation COMPLICATIONS: None OPERATIVE PROCEDURE: The patient was placed in the supine position on the endoscopy table. The patient was sedated per anesthesia that time. The Olympus gastroscope was inserted into the oropharynx and passed under direct visualization to the region of the duodenum. No obstruction was seen. The p ylorus was widely patent. The stomach was carefully inspected. The stomach was fully insufflated with air. The abdominal wall was inspected. The light was seen shining through the abdominal wall in the left upper quadrant. This site was chosen for PEG tube placement. The area was prepped in the usual sterile fashion. This area was then localized with lidocaine. A small vertical incision was made using the scalpel. The Seldinger needle was advanced into the lumen of the stomach the wire was advanced. The wire was grasped with an endoscopic snare. The wire was pulled through the oropharynx. The catheter was then threaded over the guidewire and the guidewire and catheter were pulled anteriorly until the hub of the PEG tube catheter was seated against the anterior wall the stomach. The circular bolster was applied and tightened down. The endoscope was then readvanced into the stomach. There was no evidence of any bleeding and there was appropriate tightness on the bolster. The catheter was cut appropriately. The dual port feeding adapter was applied. DISPOSITION: Stable to recovery room
--- NOTE | 2018-11-09 12:14 | PN ---
PROGRESS NOTE Keiko is a 63-year-old lady who is admitted to hospital with hypoxia and had mild troponin elevation and echocardiogram in the hospital revealed a medium-sized pericardial effusion without any evidence of tamponade. She is developmentally challenged and is to undergo a PEG tube today. The patient had an episode of atrial fibrillation this morning, but converted back to sinus rhythm. PHYSICAL EXAMINATION: On exam, comfortable at rest. Vital signs are stable. Chest exam reveals diminished air entry at the bases. Heart exam reveals first and second heart sounds. No gallop. Examination of the extremities reveal trace edema. Peripheral pulses are felt. The patient is currently on aspirin, Lasix, Lopressor, and amiodarone along with Eliquis. ASSESSMENT: 1. Paroxysmal atrial fibrillation. 2. Pericardial effusion without any tamponade. 3. Shortness of breath. PLAN: Will resume her current medications including the anticoagulant once the PEG tube is placed. MMODL / IJN: [id number] /
[2018-11-09] MEDS: ESLICARBAZEPINE ACETATE 800 MG PO SCH (12:41)
[2018-11-09] MEDS: POLYETHYLENE GLYCOL 3350 17 GM POWD.PACK PO SCH (12:43)
[2018-11-09] MEDS: METOPROLOL TARTRATE 12.5 MG TAB PO SCH ×2 (12:49→20:14)
[2018-11-09] MEDS: CALCIUM CARB-VIT D 500MG-200UN 1 EACH TAB PO SCH (12:49)
[2018-11-09] MEDS: levETIRAcetam 500 MG TAB PO SCH ×2 (12:49→20:14)
[2018-11-09] MEDS: FUROSEMIDE 20 MG TAB PO SCH (12:50)
[2018-11-09] MEDS: FAMOTIDINE 20 MG TAB PO SCH ×2 (12:50→20:14)
[2018-11-09] MEDS: AMIODARONE 200 MG TAB PO SCH (12:50)
[2018-11-09] MEDS: ASPIRIN 325 MG TAB PO SCH (12:50)
--- NOTE | 2018-11-09 14:36 | CDI ---
Documentation Clarification Form Date: 11/09/2018 2:23:43 PM From: Natalee Hurt RN CCDS Admit Date: 11/07/2018 11:26:00 AM Patient Name: Keiko Saavedra Visit Number: [id number] Discharge Date: ATTENTION: The Clinical Documentation Specialists (CDI) and [facility] Coding Staff appreciate your assistance in clarifying documentation. Please respond to the clarification below the line at the bottom and electronically sign. The CDI & [facility] Coding staff will review the response and follow-up if needed. Please note: Queries are made part of the Legal Health Record. If you have any questions, please contact the author of this message via ITS. Dr. Rene Keenan The patient presented with the following respiratory symptoms hypoxia of 81% at [facility] and shortness of breath History/Risk Factors: 63 year old female with a medical history o f chronic dysphagia, paroxysmal afib, CAD, Lives in a skilled nursing Clinical Indicators: Vital signs: 133/110 110 98.6 16 Pulse oximetry: 96% 3L Lung/Breathing assessment: Slightly decreased breath sounds. Treatment: Perforomist, Pulmicort Oxygen 2L to 3L nasal cannula In your professional opinion, can you please clarify if these findings signify one of the following conditions? Acuity * Acute Specificity * Respiratory Failure (further specify (if known)): With hypercapnia? (pCO2 >50 and pH <7.35) With hypoxia? (pO2 <60 mm Hg or SpO2 <91% on room air) * Respiratory Distress * Respiratory Insufficiency * Other Diagnosis, please specify * Unable to determine (Last Revision: October 2017) no respiratory failure / MTDD
[2018-11-09] MEDS: APIXABAN 5 MG TAB PO SCH (20:14)
[2018-11-10] MEDS: NITROGLYCERIN OINT 1 INCH/GM PACKET TOPICAL SCH (07:06)
[2018-11-10] MEDS: LEVOTHYROXINE 75 MCG TAB PO SCH (07:06)
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
[2018-11-10] MEDS: levETIRAcetam 500 MG TAB PO SCH ×2 (09:32→21:20)
[2018-11-10] MEDS: ASPIRIN 325 MG TAB PO SCH (09:32)
[2018-11-10] MEDS: FAMOTIDINE 20 MG TAB PO SCH ×2 (09:32→21:20)
[2018-11-10] MEDS: FUROSEMIDE 20 MG TAB PO SCH (09:32)
[2018-11-10] MEDS: AMIODARONE 200 MG TAB PO SCH (09:33)
[2018-11-10] MEDS: POLYETHYLENE GLYCOL 3350 17 GM POWD.PACK PO SCH (09:33)
[2018-11-10] MEDS: CLINDAMYCIN 300 MG in DEXTROSE 5% IN WATER 50 ML IVPB SCH ×6 (09:33→23:24)
[2018-11-10] MEDS: METOPROLOL TARTRATE 12.5 MG TAB PO SCH ×2 (09:33→21:22)
[2018-11-10] MEDS: APIXABAN 5 MG TAB PO SCH ×2 (09:33→21:20)
[2018-11-10] MEDS: NYSTATIN 100,000UNIT/GM CREAM 30 GM TUBE TOPICAL SCH (09:41)
[2018-11-10] MEDS: BUDESONIDE 1 MG/2 ML NEBU INHALATION SCH ×2 (09:55→20:25)
[2018-11-10] MEDS: FORMOTEROL FUMARATE 20 MCG/2 ML NEBU INHALATION SCH ×2 (09:55→20:25)
--- NOTE | 2018-11-10 10:09 | P.PN ---
Subjective Progress Note Date: 11/10/18 Principal diagnosis: Aspiration pneumonia Patient doing well today. No obvious discomfort. Tube feeds have not been started yet. Vital stable. Objective - Vital Signs Vital signs: Vital Signs Temp 97.7 F 11/10/18 08:00 Pulse 80 11/10/18 08:00 Resp 18 11/10/18 08:00 BP 131/67 11/10/18 08:00 Pulse Ox 97 11/10/18 08:00 Intake & Output 11/09/18 11/10/18 11/10/18 18:59 06:59 18:59 Intake Total 200 Balance 200 Weight 101.1 kg Intake: IV 200 Other: # Voids 2 2 - Exam Abdomen: Soft, nondistended, PEG tube clean and dry, minimal tenderness - Labs CBC & Chem 7: 11/08/18 06:10 11/07/18 09:51 Labs: Microbiology - Last 24 Hours (Table) 11/07/18 09:51 Blood Culture - Preliminary Blood No Growth after 48 hours Assessment and Plan (1) Aspiration pneumonia Narrative/Plan: Patient doing well after recent PEG tube placement. May start tube feeds today. Will follow. Current Visit: No Status: Acute Code(s): J69.0 - PNEUMONITIS DUE TO INHALATION OF FOOD AND VOMIT SNOMED Code(s): 501773918
[2018-11-10] MEDS: ESLICARBAZEPINE ACETATE 800 MG PO SCH (11:09)
--- NOTE | 2018-11-10 11:34 | P.PN ---
Subjective Progress Note Date: 11/10/18 this is a 63-year-old female admitted to the hospital because of hypoxia, shortness of breath and drop in O2 sat. Cardiology consultation was initially requested because of mild troponin abnormality. Patient does have history of paroxysmal atrial fibrillation, seizure disorder, prior pneumonia exacerbation. Patient was seen and examined this morning, no complaints overall. Hemodynamically stable. Objective - Vital Signs Vital signs: Vital Signs Temp 97.7 F 11/10/18 08:00 Pulse 80 11/10/18 08:00 Resp 18 11/10/18 08:00 BP 131/67 11/10/18 08:00 Pulse Ox 97 11/10/18 08:00 Intake & Output 11/09/18 11/10/18 11/10/18 18:59 06:59 18:59 Intake Total 200 10 Balance 200 10 Weight 101.1 kg Intake: IV 200 Tube Feeding 10 Other: # Voids 2 2 0 - Exam PHYSICAL EXAMINATION: GENERAL:63-year-old female in no acute distress at the time of my examination HEENT: Head is atraumatic, normocephalic. Pupils equal, round. Sclera anicteric. Conjunctiva are clear. Mucous membranes of the mouth are moist. Neck is supple. There is no elevated jugular venous pressure.] bruit is heard. HEART EXAMINATION: heart S1 S2 1 systolic murmur is heard. CHEST EXAMINATION:[ Lungs are clear to auscultation and precussion. No chest wall tenderness is noted on palpation or with deep breathing.] ABDOMEN: [ Soft, nontender. Bowel sounds are heard. No organomegaly noted].PEG tube in place. EXTREMITIES:[ 2+ peripheral pulses with no evidence of peripheral edema and no calf tenderness noted]. NEUROLOGIC [patient is awake, alert and oriented times one.] . - Labs CBC & Chem 7: 11/08/18 06:10 11/07/18 09:51 Labs: Microbiology - Last 24 Hours (Table) 11/07/18 09:51 Blood Culture - Preliminary Blood No Growth after 48 hours Assessment and Plan Plan: assessment and plan #1 left lower lobe pneumonia #2 abnormality in troponin not consistent with acute coronary syndrome #3 chronic mental retardation #4 chronic seizure disorder #5 paroxysmal atrial fibrillation remaining in normal sinus rhythm Plan From cardiology's perspective, we'll recommend to continue current medications. We will follow this patient along with you now on an as-needed basis only, please don't hesitate to call with any questions. DNP note has been reviewed, I agree with a documented findings and plan of care. Patient was seen and examined.
[2018-11-10] MEDS: CALCIUM CARB-VIT D 500MG-200UN 1 EACH TAB PO SCH (11:49)
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
[2018-11-11 02:02] VITALS: RESP 16
[2018-11-11] MEDS: LEVOTHYROXINE 75 MCG TAB PO SCH (05:49)
[2018-11-11] MEDS: FORMOTEROL FUMARATE 20 MCG/2 ML NEBU INHALATION SCH (08:01)
[2018-11-11] MEDS: BUDESONIDE 1 MG/2 ML NEBU INHALATION SCH (08:01)
[2018-11-11 08:10] VITALS: BP 96/62; TEMP 98.4
[2018-11-11] MEDS: levETIRAcetam 500 MG TAB PO SCH (09:11)
[2018-11-11] MEDS: POLYETHYLENE GLYCOL 3350 17 GM POWD.PACK PO SCH (09:11)
[2018-11-11] MEDS: METOPROLOL TARTRATE 12.5 MG TAB PO SCH (09:11)
[2018-11-11] MEDS: AMIODARONE 200 MG TAB PO SCH (09:12)
[2018-11-11] MEDS: FUROSEMIDE 20 MG TAB PO SCH (09:12)
[2018-11-11] MEDS: APIXABAN 5 MG TAB PO SCH (09:12)
[2018-11-11] MEDS: NYSTATIN 100,000UNIT/GM CREAM 30 GM TUBE TOPICAL SCH (09:12)
[2018-11-11] MEDS: ESLICARBAZEPINE ACETATE 800 MG PO SCH (09:12)
[2018-11-11] MEDS: FAMOTIDINE 20 MG TAB PO SCH (09:12)
[2018-11-11] MEDS: CALCIUM CARB-VIT D 500MG-200UN 1 EACH TAB PO SCH (09:12)
[2018-11-11] MEDS: CLINDAMYCIN 300 MG in DEXTROSE 5% IN WATER 50 ML IVPB SCH ×2 (09:34)
--- NOTE | 2018-11-11 09:46 | P.PN ---
Subjective Progress Note Date: 11/11/18 Principal diagnosis: Aspiration pneumonia Patient tolerating tube feeds at 30 per hour. Being advanced to 40 at this time. No obvious discomfort. She is afebrile. Objective - Vital Signs Vital signs: Vital Signs Temp 98.4 F 11/11/18 07:00 Pulse 77 11/11/18 08:11 Resp 16 11/11/18 07:00 BP 96/62 11/11/18 07:00 Pulse Ox 98 11/11/18 07:00 Intake & Output 11/10/18 11/11/18 11/11/18 18:59 06:59 18:59 Intake Total 48 195 Balance 48 195 Intake: Tube Feeding 48 195 Other: Voiding Method Diaper Diaper # Voids 1 1 # Bowel Movements 0 - Exam Abdomen: Soft, nondistended, minimal tenderness at PEG tube site, bolster intact - Labs CBC & Chem 7: 11/08/18 06:10 11/07/18 09:51 Labs: Microbiology - Last 24 Hours (Table) 11/07/18 09:51 Blood Culture - Preliminary Blood No Growth after 72 hours Assessment and Plan (1) Aspiration pneumonia Narrative/Plan: Continue advancing tube feeds to goal. We'll sign off. Please call if needed. Current Visit: No Status: Acute Code(s): J69.0 - PNEUMONITIS DUE TO INHALATION OF FOOD AND VOMIT SNOMED Code(s): 969941356
[2018-11-11 09:54] VITALS: PULSE 74
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
== END 2018-11-11 13:53 | disposition home health service (06) | DRG 177 ==
LOC: EC 08:14 → 3SCARD 11:26 → 4SSUR 11-10 16:30
PROVIDERS: ADMIT Hospitalist; ATTEND Hospitalist
PROC: 0DH63UZ Insertion of Feeding Device into Stomach, Percutaneous Approach (ICD-10-PCS; principal; 2018-11-09 07:30)
DX: J69.0 Pneumonitis due to inhalation of food and vomit (principal); I21.4 Non-ST elevation (NSTEMI) myocardial infarction; G82.50 Quadriplegia, unspecified; I48.92 Unspecified atrial flutter; I50.9 Heart failure, unspecified; I48.0 Paroxysmal atrial fibrillation; D64.9 Anemia, unspecified; E03.9 Hypothyroidism, unspecified; F03.90 Unspecified dementia, unspecified severity, without behavioral disturbance, psychotic disturbance, mood disturbance, and anxiety; F79 Unspecified intellectual disabilities; G40.909 Epilepsy, unspecified, not intractable, without status epilepticus; I11.0 Hypertensive heart disease with heart failure; I25.10 Atherosclerotic heart disease of native coronary artery without angina pectoris; J45.20 Mild intermittent asthma, uncomplicated; R09.02 Hypoxemia; R13.10 Dysphagia, unspecified; V89.2XXS Person injured in unspecified motor-vehicle accident, traffic, sequela; Z87.820 Personal history of traumatic brain injury; Z79.01 Long term (current) use of anticoagulants; Z79.890 Hormone replacement therapy; Z79.899 Other long term (current) drug therapy; Z79.51 Long term (current) use of inhaled steroids; Z82.49 Family history of ischemic heart disease and other diseases of the circulatory system; Z87.01 Personal history of pneumonia (recurrent); Z87.440 Personal history of urinary (tract) infections; Z88.0 Allergy status to penicillin; Z99.3 Dependence on wheelchair; Z82.2 Family history of deafness and hearing loss; R47.1 Dysarthria and anarthria; R15.9 Full incontinence of feces; R32 Unspecified urinary incontinence
CPT/HCPCS: 36415; 43246; 71046; 80053; 83605; 83735; 84484; 85025; 85027; 85610; 85730; 87040; 93005; 93306; 94640; 94760; 96365; 99291

== ENCOUNTER 2018-11-16 16:44 | Inpatient (IN) | payer MEDICARE, OTHER ==
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
[2018-11-16] MEDS ORDERED: CLINDAMYCIN 600 MG in DEXTROSE 5% IN WATER 50 ML IVPB STA ×2 (17:16)
[2018-11-16 18:04] LABS: Basophils # (A) 0.1 k/uL (0-0.2); Basophils % (A) 1 %; Eosinophils # (A) 0.3 k/uL (0-0.7); Eosinophils % (A) 2 %; HCT 31.8 % (34.0-46.0); HGB 9.8 gm/dL (11.4-16.0); Lymphocytes # (A) 1.5 k/uL (1.0-4.8); Lymphocytes % (A) 14 %; MCH 27.4 pg (25.0-35.0); MCV 88.4 fL (80.0-100.0); Mean Platelet Volume 8.1; Monocytes # (A) 0.7 k/uL (0-1.0); Monocytes % (A) 6 %; Neutrophils # (A) 7.9 k/uL (1.3-7.7); Neutrophils % (A) 74 %; Platelet Count 241 k/uL (150-450); RBC 3.59 m/uL (3.80-5.40); RDW 15.6 % (11.5-15.5); VBG PH 7.43 (7.31-7.41); WBC 10.7 k/uL (3.8-10.6)
[2018-11-16 18:16] LABS: Partial Thromboplastin Time 25.4 sec (22.0-30.0); Prothrombin Time 10.4 sec (9.0-12.0)
[2018-11-16 18:34] LABS: ALT 57 U/L (9-52); AST 43 U/L (14-36); Albumin 3.6 g/dL (3.5-5.0); Alkaline Phosphatase 251 U/L (38-126); Anion Gap 10 mmol/L; Blood Urea Nitrogen 17 mg/dL (7-17); Calcium 9.4 mg/dL (8.4-10.2); Carbon Dioxide 30 mmol/L (22-30); Chloride 91 mmol/L (98-107); Glucose 85 mg/dL (74-99); Potassium 4.6 mmol/L (3.5-5.1); Sodium 131 mmol/L (137-145); Total Bilirubin 0.5 mg/dL (0.2-1.3); Total Protein 6.9 g/dL (6.3-8.2)
--- NOTE | 2018-11-16 18:57 | XR ---
EXAMINATION TYPE: XR chest 2V DATE OF EXAM: 11/16/2018 COMPARISON: Two-view chest x-ray November 08, 2018. HISTORY: Hypoxia. Recent aspiration pneumonia. TECHNIQUE: Frontal and lateral views of the chest are obtained. FINDINGS: There is improved aeration left lung base. Patchy opacity right lung base persists. Upper lungs remain clear. Persistent small left pleural effusion. The cardiac silhouette size is remains e nlarged. The osseous structures are intact. IMPRESSION: Persistent cardiomegaly with patchy right basilar atelectasis and/or infiltrate. Improvi ng small left pleural effusion and left basilar atelectasis and/or infiltrate. No new infiltrate is p resent.
[2018-11-16] MEDS ORDERED: ACETAMINOPHEN TAB 325 MG TAB PO PRN (19:04)
[2018-11-16] MEDS ORDERED: NALOXONE 0.4 MG/ML 1 ML VIAL IV PRN (19:04)
[2018-11-16] MEDS ORDERED: metroNIDAZOLE-NS PMX 500 MG in SALINE 1 100ML.BAG IVPB STA (19:09)
[2018-11-16] MEDS ORDERED: LEVOFLOXACIN 500MG-D5W PMX 500 MG in DEXTROSE/WATER 1 100ML.BAG IVPB SCH (21:00)
[2018-11-16] MEDS: SODIUM CHLORIDE 0.9% 1,000 ML IV SCH (22:16)
[2018-11-16] MEDS: METOPROLOL TARTRATE 12.5 MG TAB PEG/G-TUBE SCH (22:33)
[2018-11-16] MEDS: FAMOTIDINE 20 MG TAB PEG/G-TUBE SCH (22:37)
[2018-11-16] MEDS: levETIRAcetam ORAL SOLN 500 MG/5 ML CUP PEG/G-TUBE SCH (22:37)
[2018-11-16] MEDS: APIXABAN 5 MG TAB PEG/G-TUBE SCH (22:37)
[2018-11-17] MEDS: metroNIDAZOLE-NS PMX 500 MG in SALINE 1 100ML.BAG IVPB SCH ×3 (01:44→15:44)
[2018-11-17] MEDS: LEVOTHYROXINE 75 MCG TAB PEG/G-TUBE SCH (05:30)
[2018-11-17 06:12] LABS: Basophils % (A) 1 %; Eosinophils # (A) 0.3 k/uL (0-0.7); Eosinophils % (A) 3 %; HCT 29.3 % (34.0-46.0); HGB 9.2 gm/dL (11.4-16.0); Hypochromasia Slight; Lymphocytes # (A) 1.3 k/uL (1.0-4.8); Lymphocytes % (A) 16 %; MCH 28.3 pg (25.0-35.0); MCHC 31.5 g/dL (31.0-37.0); MCV 89.9 fL (80.0-100.0); Mean Platelet Volume 7.6; Monocytes # (A) 0.8 k/uL (0-1.0); Monocytes % (A) 10 %; Neutrophils # (A) 5.5 k/uL (1.3-7.7); Neutrophils % (A) 68 %; Platelet Count 217 k/uL (150-450); RBC 3.26 m/uL (3.80-5.40); RDW 15.2 % (11.5-15.5); WBC 8.1 k/uL (3.8-10.6)
[2018-11-17 06:24] LABS: Anion Gap 6 mmol/L; Blood Urea Nitrogen 12 mg/dL (7-17); Calcium 9.2 mg/dL (8.4-10.2); Carbon Dioxide 28 mmol/L (22-30); Chloride 99 mmol/L (98-107); Glucose 80 mg/dL (74-99); Potassium 4.7 mmol/L (3.5-5.1); Sodium 133 mmol/L (137-145)
[2018-11-17] MEDS: ALBUTEROL NEBULIZED 2.5 MG/3 ML INHALATION PRN ×4 (06:57→19:41)
[2018-11-17] MEDS: BUDESONIDE 0.5 MG/2 ML NEBU INHALATION SCH ×2 (06:57→19:41)
[2018-11-17] MEDS: METOPROLOL TARTRATE 12.5 MG TAB PEG/G-TUBE SCH ×2 (07:28→20:41)
[2018-11-17] MEDS: APIXABAN 5 MG TAB PEG/G-TUBE SCH ×2 (07:29→20:41)
[2018-11-17] MEDS: FAMOTIDINE 20 MG TAB PEG/G-TUBE SCH ×2 (07:29→20:41)
[2018-11-17] MEDS: ESLICARBAZEPINE ACETATE 800 MG PO SCH (07:29)
[2018-11-17] MEDS: AMIODARONE 200 MG TAB PEG/G-TUBE SCH (07:29)
[2018-11-17] MEDS: POLYETHYLENE GLYCOL 3350 17 GM POWD.PACK PEG/G-TUBE SCH (07:30)
[2018-11-17] MEDS: NYSTATIN 100,000UNIT/GM CREAM 30 GM TUBE TOPICAL SCH (07:33)
[2018-11-17 09:17] VITALS: BMI 26.7
[2018-11-17] MEDS: levETIRAcetam ORAL SOLN 500 MG/5 ML CUP PEG/G-TUBE SCH ×2 (10:48→20:41)
[2018-11-17] MEDS: CLINDAMYCIN 300 MG in DEXTROSE 5% IN WATER 50 ML IVPB SCH ×4 (17:17→23:41)
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
[2018-11-17] MEDS: SODIUM CHLORIDE 0.9% 1,000 ML IV SCH (20:40)
[2018-11-17 22:19] VITALS: RESP 20
[2018-11-18] MEDS: CLINDAMYCIN 300 MG in DEXTROSE 5% IN WATER 50 ML IVPB SCH ×4 (05:19→11:34)
[2018-11-18] MEDS: LEVOTHYROXINE 75 MCG TAB PEG/G-TUBE SCH (05:20)
[2018-11-18 05:30] VITALS: BP 100/66; TEMP 97.2
[2018-11-18] MEDS: APIXABAN 5 MG TAB PEG/G-TUBE SCH (06:49)
[2018-11-18] MEDS: POLYETHYLENE GLYCOL 3350 17 GM POWD.PACK PEG/G-TUBE SCH (06:49)
[2018-11-18] MEDS: FAMOTIDINE 20 MG TAB PEG/G-TUBE SCH (06:49)
[2018-11-18] MEDS: METOPROLOL TARTRATE 12.5 MG TAB PEG/G-TUBE SCH (06:49)
[2018-11-18] MEDS: AMIODARONE 200 MG TAB PEG/G-TUBE SCH (06:49)
[2018-11-18] MEDS: NYSTATIN 100,000UNIT/GM CREAM 30 GM TUBE TOPICAL SCH (06:50)
[2018-11-18] MEDS: ESLICARBAZEPINE ACETATE 800 MG PO SCH (06:51)
[2018-11-18] MEDS: BUDESONIDE 0.5 MG/2 ML NEBU INHALATION SCH (06:52)
[2018-11-18] MEDS: ALBUTEROL NEBULIZED 2.5 MG/3 ML INHALATION PRN ×2 (06:52→10:59)
[2018-11-18] MEDS: levETIRAcetam ORAL SOLN 500 MG/5 ML CUP PEG/G-TUBE SCH (09:44)
[2018-11-18 11:02] VITALS: PULSE 80
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
== END 2018-11-18 13:50 | disposition home health service (06) | DRG 177 ==
LOC: EC 16:44 → 4MS4W 19:05
PROVIDERS: ADMIT Hospitalist; ATTEND Hospitalist
DX: J69.0 Pneumonitis due to inhalation of food and vomit (principal); G82.50 Quadriplegia, unspecified; E03.9 Hypothyroidism, unspecified; F03.90 Unspecified dementia, unspecified severity, without behavioral disturbance, psychotic disturbance, mood disturbance, and anxiety; F79 Unspecified intellectual disabilities; G40.909 Epilepsy, unspecified, not intractable, without status epilepticus; I11.0 Hypertensive heart disease with heart failure; I25.10 Atherosclerotic heart disease of native coronary artery without angina pectoris; I25.2 Old myocardial infarction; I35.0 Nonrheumatic aortic (valve) stenosis; I48.0 Paroxysmal atrial fibrillation; I50.9 Heart failure, unspecified; J45.20 Mild intermittent asthma, uncomplicated; R09.02 Hypoxemia; R13.10 Dysphagia, unspecified; V89.2XXS Person injured in unspecified motor-vehicle accident, traffic, sequela; Z87.820 Personal history of traumatic brain injury; Z79.01 Long term (current) use of anticoagulants; Z79.890 Hormone replacement therapy; Z79.899 Other long term (current) drug therapy; Z82.49 Family history of ischemic heart disease and other diseases of the circulatory system; Z99.3 Dependence on wheelchair; Z88.0 Allergy status to penicillin; Z79.51 Long term (current) use of inhaled steroids; R47.1 Dysarthria and anarthria; R32 Unspecified urinary incontinence; R15.9 Full incontinence of feces
CPT/HCPCS: 36415; 71046; 80048; 80053; 82803; 83605; 83880; 85025; 85610; 85730; 87040; 87502; 93005; 94640; 94760; 96365; 96367; 99285

== ENCOUNTER → 2018-11-27 | Outpatient (CLI) | payer MEDICARE, OTHER ==
[2018-11-27 14:49] VITALS: BMI 27.4
== END | disposition home or self-care (01) ==
LOC: DBWHC3 12:59
PROVIDERS: ATTEND Family Medicine
DX: E63.9 Nutritional deficiency, unspecified (principal)

== ENCOUNTER 2019-01-04 11:42 | Emergency (ER) | payer MEDICARE, OTHER ==
[2019-01-04 11:51] VITALS: BP 137/70; PULSE 60; RESP 20; TEMP 97.6
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
== END 2019-01-04 12:49 | disposition home or self-care (01) ==
LOC: EC 11:42
DX: K94.29 Other complications of gastrostomy (principal); I48.91 Unspecified atrial fibrillation; J45.909 Unspecified asthma, uncomplicated; I25.2 Old myocardial infarction; G40.909 Epilepsy, unspecified, not intractable, without status epilepticus; I11.0 Hypertensive heart disease with heart failure; I50.9 Heart failure, unspecified; E03.9 Hypothyroidism, unspecified; Z79.51 Long term (current) use of inhaled steroids; Z79.890 Hormone replacement therapy; Z79.899 Other long term (current) drug therapy; Z88.0 Allergy status to penicillin
CPT/HCPCS: 99283

== ENCOUNTER 2019-02-01 10:47 | Inpatient (IN) | payer MEDICARE, OTHER ==
[2019-02-01] MEDS ORDERED: SODIUM CHLORIDE 0.9% 1,000 ML IV STA ×2 (11:09)
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
[2019-02-01 11:58] LABS: Anisocytosis Slight; Basophils # (A) 0.1 k/uL (0-0.2); Basophils % (A) 1 %; Eosinophils # (A) 0.4 k/uL (0-0.7); Eosinophils % (A) 3 %; HCT 34.5 % (34.0-46.0); HGB 11.2 gm/dL (11.4-16.0); Lymphocytes # (A) 0.8 k/uL (1.0-4.8); Lymphocytes % (A) 7 %; MCH 28.1 pg (25.0-35.0); MCHC 32.3 g/dL (31.0-37.0); Mean Platelet Volume 8.4; Monocytes # (A) 0.9 k/uL (0-1.0); Monocytes % (A) 7 %; Neutrophils % (A) 80 %; Platelet Count 295 k/uL (150-450); RBC 3.97 m/uL (3.80-5.40); RDW 16.2 % (11.5-15.5); WBC 12.4 k/uL (3.8-10.6)
[2019-02-01 12:07] LABS: ALT 21 U/L (9-52); AST 31 U/L (14-36); African American GFR (CKD) >90 (>60 ml/min/1.73 sqM); Albumin 4.7 g/dL (3.5-5.0); Alkaline Phosphatase 156 U/L (38-126); Anion Gap 10 mmol/L; Blood Urea Nitrogen 23 mg/dL (7-17); Carbon Dioxide 29 mmol/L (22-30); Chloride 93 mmol/L (98-107); Glucose 106 mg/dL (74-99); Partial Thromboplastin Time 26.7 sec (22.0-30.0); Potassium 4.6 mmol/L (3.5-5.1); Prothrombin Time 10.4 sec (9.0-12.0); Sodium 132 mmol/L (137-145); Total Bilirubin 0.4 mg/dL (0.2-1.3); Total Protein 7.8 g/dL (6.3-8.2)
--- NOTE | 2019-02-01 12:21 | CT ---
EXAMINATION TYPE: CT brain wo con DATE OF EXAM: 02/01/2019 COMPARISON: 09/15/2018 HISTORY: Seizure activity CT DLP: 2184.4 mGycm Automated exposure control for dose reduction was used. FINDINGS: There is no acute intracranial hemorrhage or midline shift identified. There is diffuse ventricular a nd sulcal prominence consistent with diffuse age-related cerebral atrophy. More prominent atrophy of the cerebellum is redemonstrated. Cannot exclude posterior fossa congenital anomaly, correlate clinic ally. There is low-attenuation in the periventricular white matter consistent with chronic small vessel isc hemic change. Areas of old infarct or encephalomalacia bilateral higher frontal lobes are redemonstra flavio. There is right parietal caron hole with catheter terminating in the right frontal white matter an terior to right lateral ventricle unchanged in position and appearance from prior CT. Encephalomalaci a along the catheter remains present. The globes are intact and the visualized sinuses are clear. Juanjose al septum remains deviated to left of midline. IMPRESSION: Exam is limited by positioning and motion. 1. No obvious acute intracranial hemorrhage. 2. Shunt catheter seen with the tip again appearing to be outside of the ventricular system and anter ior to the right lateral ventricle anterior horn within the right frontal white matter. Correlate cli nically. Ventricular prominence persists which could bee- on the basis of stable appearing hydrocepha sumi. 3. Atrophic changes of the posterior fossa stable for low attenuation in the white matter are nonspec ific but most likely in the basis of remote ischemic change.
--- NOTE | 2019-02-01 12:23 | XR ---
EXAMINATION TYPE: XR chest 2V DATE OF EXAM: 02/01/2019 COMPARISON: 11/16/2018 HISTORY: Shortness of breath TECHNIQUE: Frontal and lateral views of the chest are obtained. FINDINGS: Scattered senescent parenchymal changes noted. Hyperinflation compatible with COPD. No evidence for infiltrate. No evidence for atelectasis. Heart size is stable. Mediastinal structures are stable and grossly unremarkable. No evidence for hilar prominence. Degenerative changes dorsal spine. IMPRESSION: 1. No evidence for acute pulmonary disease.
[2019-02-01 12:38] LABS: Appearance,Urine Turbid (Clear); Bacteria,Urine Occasional /hpf; Bilirubin,Urine Negative (Negative); Blood,Urine Small (Negative); Color,Urine Yellow; Glucose,Urine (UA) Negative (Negative); Ketones,Urine Negative (Negative); Leukocyte Esterase,Urine Large (Negative); Mucus,Urine Rare /hpf; Nitrite,Urine Positive (Negative); PH, Urine 7.5 (5.0-8.0); Protein,Urine 1+ (Negative); RBC,Urine 121 /hpf (0-5); Specific Gravity,Urine 1.015 (1.001-1.035); Squamous Epithelial Cell,Urine 1 /hpf (0-4); Urobilinogen,Urine <2.0 mg/dL (<2.0)
[2019-02-01] MEDS ORDERED: cefTRIAXone IN SWFI 1,000 MG/10 ML SYRINGE IVP STA (12:42)
[2019-02-01] MEDS ORDERED: NALOXONE 0.4 MG/ML 1 ML VIAL IV PRN (13:27)
[2019-02-01] MEDS ORDERED: cefTRIAXone IN SWFI 1,000 MG/10 ML SYRINGE IVP SCH (13:30)
[2019-02-01] MEDS ORDERED: ALBUTEROL NEBULIZED 2.5 MG/3 ML INHALATION PRN (13:32)
[2019-02-01] MEDS ORDERED: ENTERAL FORMULA PEG/G-TUBE SCH (13:45)
[2019-02-01 14:52] VITALS: BMI 27.1
[2019-02-01] MEDS: SODIUM CHLORIDE 0.9% 1,000 ML IV SCH (18:14)
[2019-02-01] MEDS: DICLOFENAC SODIUM GEL 100 GM TUBE TOPICAL SCH ×2 (18:15→22:15)
[2019-02-01] MEDS: APIXABAN 5 MG TAB PEG/G-TUBE SCH (21:48)
[2019-02-01] MEDS: FAMOTIDINE 20 MG TAB PEG/G-TUBE SCH (21:48)
[2019-02-01] MEDS: METOPROLOL TARTRATE 12.5 MG TAB PEG/G-TUBE SCH (21:49)
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
[2019-02-01] MEDS: levETIRAcetam ORAL SOLN 500 MG/5 ML CUP PEG/G-TUBE SCH (22:15)
[2019-02-02] MEDS: SODIUM CHLORIDE 0.9% 1,000 ML IV SCH ×2 (06:40→10:29)
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
[2019-02-02] MEDS: LEVOTHYROXINE 75 MCG TAB PEG/G-TUBE SCH (06:54)
[2019-02-02] MEDS: Eslicarbazepine Acetate [Aptiom] 800 MG PEG/G-TUBE SCH (06:54)
[2019-02-02 07:13] LABS: Basophils # (A) 0.1 k/uL (0-0.2); Basophils % (A) 1 %; Eosinophils # (A) 0.5 k/uL (0-0.7); Eosinophils % (A) 4 %; HCT 30.6 % (34.0-46.0); Lymphocytes # (A) 1.2 k/uL (1.0-4.8); Lymphocytes % (A) 11 %; MCH 27.7 pg (25.0-35.0); MCV 89.3 fL (80.0-100.0); Mean Platelet Volume 8.1; Monocytes # (A) 0.8 k/uL (0-1.0); Monocytes % (A) 7 %; Neutrophils # (A) 8.1 k/uL (1.3-7.7); Neutrophils % (A) 75 %; Platelet Count 262 k/uL (150-450); RBC 3.43 m/uL (3.80-5.40); RDW 15.4 % (11.5-15.5); WBC 10.8 k/uL (3.8-10.6)
[2019-02-02 07:14] LABS: HGB 9.5 gm/dL (11.4-16.0)
[2019-02-02 07:15] LABS: African American GFR (CKD) >90 (>60 ml/min/1.73 sqM); Anion Gap 6 mmol/L; Blood Urea Nitrogen 19 mg/dL (7-17); Calcium 9.2 mg/dL (8.4-10.2); Carbon Dioxide 28 mmol/L (22-30); Chloride 101 mmol/L (98-107); Glucose 93 mg/dL (74-99); Potassium 4.8 mmol/L (3.5-5.1); Sodium 135 mmol/L (137-145)
[2019-02-02 07:41] LABS: Glucose,Whole Blood 111 mg/dL (75-99)
[2019-02-02] MEDS ORDERED: VITAMIN D3 PEG/G-TUBE SCH (09:00)
[2019-02-02] MEDS ORDERED: FERROUS SULFATE 220 MG PEG/G-TUBE SCH (09:00)
[2019-02-02] MEDS ORDERED: CALCIUM CITRATE PEG/G-TUBE SCH (09:00)
[2019-02-02] MEDS: levETIRAcetam ORAL SOLN 500 MG/5 ML CUP PEG/G-TUBE SCH ×2 (09:48→21:09)
[2019-02-02] MEDS: POLYETHYLENE GLYCOL 3350 17 GM POWD.PACK PEG/G-TUBE SCH (09:48)
[2019-02-02] MEDS: APIXABAN 5 MG TAB PEG/G-TUBE SCH ×2 (09:48→21:09)
[2019-02-02] MEDS: CHOLECALCIFEROL 1,000 UNIT TAB PEG/G-TUBE SCH (09:48)
[2019-02-02] MEDS: METOPROLOL TARTRATE 12.5 MG TAB PEG/G-TUBE SCH ×2 (09:48→21:08)
[2019-02-02] MEDS: FUROSEMIDE 20 MG TAB PEG/G-TUBE SCH (09:49)
[2019-02-02] MEDS: FAMOTIDINE 20 MG TAB PEG/G-TUBE SCH ×2 (09:49→21:09)
[2019-02-02] MEDS: AMIODARONE 200 MG TAB PEG/G-TUBE SCH (09:49)
[2019-02-02] MEDS: SOOLANTRA 1% TOPICAL SCH (09:51)
[2019-02-02] MEDS: DICLOFENAC SODIUM GEL 100 GM TUBE TOPICAL SCH ×4 (10:30→21:08)
[2019-02-02 12:16] LABS: Glucose,Whole Blood 128 mg/dL (75-99)
[2019-02-02] MEDS: NYSTATIN 100,000UNIT/GM CREAM 30 GM TUBE TOPICAL SCH (12:40)
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
[2019-02-02 17:03] LABS: Glucose,Whole Blood 112 mg/dL (75-99)
[2019-02-02 20:57] LABS: Glucose,Whole Blood 122 mg/dL (75-99)
[2019-02-03] MEDS: LEVOTHYROXINE 75 MCG TAB PEG/G-TUBE SCH (06:17)
[2019-02-03] MEDS: Eslicarbazepine Acetate [Aptiom] 800 MG PEG/G-TUBE SCH (06:17)
[2019-02-03 06:38] LABS: African American GFR (CKD) >90 (>60 ml/min/1.73 sqM); Anion Gap 8 mmol/L; Blood Urea Nitrogen 20 mg/dL (7-17); Calcium 9.3 mg/dL (8.4-10.2); Carbon Dioxide 28 mmol/L (22-30); Chloride 101 mmol/L (98-107); Glucose 110 mg/dL (74-99); Potassium 4.2 mmol/L (3.5-5.1); Sodium 137 mmol/L (137-145)
[2019-02-03 06:39] LABS: Glucose,Whole Blood 125 mg/dL (75-99)
[2019-02-03 08:54] VITALS: BP 141/69; PULSE 71; RESP 16; TEMP 98
[2019-02-03] MEDS: levETIRAcetam ORAL SOLN 500 MG/5 ML CUP PEG/G-TUBE SCH (09:50)
[2019-02-03] MEDS: POLYETHYLENE GLYCOL 3350 17 GM POWD.PACK PEG/G-TUBE SCH (09:50)
[2019-02-03] MEDS: APIXABAN 5 MG TAB PEG/G-TUBE SCH (09:51)
[2019-02-03] MEDS: FAMOTIDINE 20 MG TAB PEG/G-TUBE SCH (09:51)
[2019-02-03] MEDS: METOPROLOL TARTRATE 12.5 MG TAB PEG/G-TUBE SCH (09:51)
[2019-02-03] MEDS: DICLOFENAC SODIUM GEL 100 GM TUBE TOPICAL SCH (09:51)
[2019-02-03] MEDS: AMIODARONE 200 MG TAB PEG/G-TUBE SCH (09:51)
[2019-02-03] MEDS: CHOLECALCIFEROL 1,000 UNIT TAB PEG/G-TUBE SCH (09:51)
[2019-02-03] MEDS: FUROSEMIDE 20 MG TAB PEG/G-TUBE SCH (09:51)
[2019-02-03] MEDS: NYSTATIN 100,000UNIT/GM CREAM 30 GM TUBE TOPICAL SCH (09:52)
[2019-02-03] MEDS: SOOLANTRA 1% TOPICAL SCH (09:52)
[2019-02-03 11:45] LABS: Glucose,Whole Blood 128 mg/dL (75-99)
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
== END 2019-02-03 14:35 | disposition home or self-care (01) | DRG 100 ==
LOC: EC 10:47 → 3SCARD 13:26
PROVIDERS: ADMIT Hospitalist; ATTEND Hospitalist
DX: G40.909 Epilepsy, unspecified, not intractable, without status epilepticus (principal); G82.50 Quadriplegia, unspecified; E87.1 Hypo-osmolality and hyponatremia; I48.0 Paroxysmal atrial fibrillation; I11.0 Hypertensive heart disease with heart failure; I50.9 Heart failure, unspecified; N30.90 Cystitis, unspecified without hematuria; R13.10 Dysphagia, unspecified; E86.0 Dehydration; R15.9 Full incontinence of feces; F03.90 Unspecified dementia, unspecified severity, without behavioral disturbance, psychotic disturbance, mood disturbance, and anxiety; I35.0 Nonrheumatic aortic (valve) stenosis; R32 Unspecified urinary incontinence; E03.9 Hypothyroidism, unspecified; I25.10 Atherosclerotic heart disease of native coronary artery without angina pectoris; J45.20 Mild intermittent asthma, uncomplicated; I44.4 Left anterior fascicular block; F79 Unspecified intellectual disabilities; G24.9 Dystonia, unspecified; G89.29 Other chronic pain; M25.521 Pain in right elbow; H55.00 Unspecified nystagmus; R47.1 Dysarthria and anarthria; I25.2 Old myocardial infarction; Z93.1 Gastrostomy status; Z79.01 Long term (current) use of anticoagulants; Z79.890 Hormone replacement therapy; Z79.51 Long term (current) use of inhaled steroids; Z79.899 Other long term (current) drug therapy; Z98.2 Presence of cerebrospinal fluid drainage device; Z87.820 Personal history of traumatic brain injury; Z82.2 Family history of deafness and hearing loss; Z87.01 Personal history of pneumonia (recurrent); Z98.890 Other specified postprocedural states; Z99.3 Dependence on wheelchair; Z88.0 Allergy status to penicillin; Z82.49 Family history of ischemic heart disease and other diseases of the circulatory system
CPT/HCPCS: 36415; 70450; 71046; 80048; 80053; 81001; 83880; 84484; 85025; 85610; 85730; 87040; 87077; 87086; 87186; 93005; 95816; 96361; 96374; 99285

== ENCOUNTER 2019-03-20 19:15 | Emergency (ER) | payer MEDICARE, OTHER ==
[2019-03-20] MEDS ORDERED: SODIUM CHLORIDE 0.9% 1,000 ML IV STA (19:27)
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
[2019-03-20 20:48] LABS: Basophils # (A) 0.1 k/uL (0-0.2); Basophils % (A) 1 %; Eosinophils # (A) 0.3 k/uL (0-0.7); Eosinophils % (A) 3 %; HCT 35.2 % (34.0-46.0); HGB 11.5 gm/dL (11.4-16.0); Lymphocytes # (A) 0.8 k/uL (1.0-4.8); Lymphocytes % (A) 8 %; MCH 28.4 pg (25.0-35.0); MCHC 32.8 g/dL (31.0-37.0); MCV 86.5 fL (80.0-100.0); Mean Platelet Volume 8.4; Monocytes # (A) 0.7 k/uL (0-1.0); Monocytes % (A) 7 %; Neutrophils # (A) 8.3 k/uL (1.3-7.7); Neutrophils % (A) 81 %; Platelet Count 253 k/uL (150-450); RBC 4.07 m/uL (3.80-5.40); RDW 15.1 % (11.5-15.5); WBC 10.3 k/uL (3.8-10.6)
[2019-03-20 20:58] LABS: ALT 22 U/L (9-52); AST 29 U/L (14-36); African American GFR (CKD) >90 (>60 ml/min/1.73 sqM); Albumin 4.6 g/dL (3.5-5.0); Alkaline Phosphatase 155 U/L (38-126); Anion Gap 11 mmol/L; Blood Urea Nitrogen 26 mg/dL (7-17); Calcium 9.9 mg/dL (8.4-10.2); Carbon Dioxide 30 mmol/L (22-30); Chloride 91 mmol/L (98-107); Glucose 99 mg/dL (74-99); Magnesium 2.2 mg/dL (1.6-2.3); Phosphorus 3.8 mg/dL (2.5-4.5); Potassium 4.2 mmol/L (3.5-5.1); Sodium 132 mmol/L (137-145); Total Bilirubin 0.3 mg/dL (0.2-1.3); Total Protein 7.8 g/dL (6.3-8.2)
[2019-03-20 21:20] LABS: Partial Thromboplastin Time 27.3 sec (22.0-30.0); Prothrombin Time 10.3 sec (9.0-12.0)
[2019-03-20 21:28] LABS: Amorphous Sediment,Urine Moderate /hpf; Appearance,Urine Turbid (Clear); Bacteria,Urine Many /hpf; Bilirubin,Urine Negative (Negative); Blood,Urine Moderate (Negative); Color,Urine Yellow; Glucose,Urine (UA) Negative (Negative); Hyaline Casts,Urine 14 /lpf (0-2); Ketones,Urine Negative (Negative); Leukocyte Esterase,Urine Large (Negative); Mucus,Urine Rare /hpf; Nitrite,Urine Positive (Negative); Protein,Urine 1+ (Negative); RBC,Urine 20 /hpf (0-5); Specific Gravity,Urine 1.017 (1.001-1.035); Urobilinogen,Urine <2.0 mg/dL (<2.0); WBC,Urine >182 /hpf (0-5)
[2019-03-20 21:39] LABS: D-Dimer 4.29 mg/L FEU (<0.60)
--- NOTE | 2019-03-20 22:34 | CT ---
EXAM: CT Abdomen and Pelvis Without Intravenous Contrast CLINICAL HISTORY: ITS.REASON CT Reason: Pain TECHNIQUE: Axial computed tomography images of the abdomen and pelvis without intravenous contrast. CTDI is 14.37 mGy and DLP is 798 mGy-cm. This CT exam was performed using one or more of the following dose reduction techniques: automated exposure control, adjustment of the mA and/or kV according to patient size, and/or use of iterative reconstruction technique. COMPARISON: None. FINDINGS: Artifacts: Examination is degraded by patient motion. Lung bases: Atelectasis is seen in the lung bases. Heart: Cardiomegaly. ABDOMEN: Liver: Unremarkable. Gallbladder and bile ducts: Cholelithiasis. No ductal dilation. Pancreas: Unremarkable. No ductal dilation. Spleen: Unremarkable. No splenomegaly. Adrenals: Unremarkable. No mass. Kidneys and ureters: Unremarkable. No obstructing stones. No hydronephrosis. Stomach and bowel: Large colonic stool burden. No mucosal thickening. PELVIS: Appendix: No findings to suggest acute appendicitis. Bladder: Irregular wall thickening of the urinary bladder with a large left lateral diverticulum. No stones. Reproductive: Unremarkable as visualized. ABDOMEN and PELVIS: Intraperitoneal space: Unremarkable. No free air. No significant fluid collection. Bones/joints: No acute fracture. No dislocation. Soft tissues: Unremarkable. Vasculature: Unremarkable. No abdominal aortic aneurysm. Lymph nodes: Unremarkable. No enlarged lymph nodes. Tubes, lines and devices: Gastrostomy tube is present in the stomach. IMPRESSION: 1. Cholelithiasis. 2. Irregular wall thickening of the urinary bladder with a large left lateral diverticulum. Recommend correlation for cystitis. 3. Large colonic stool burden. Recommend correlation for constipation.
--- NOTE | 2019-03-20 22:41 | CT ---
EXAM: CT Angiography Chest With Intravenous Contrast CLINICAL HISTORY: ITS.REASON CT Reason: stone protocol TECHNIQUE: Axial computed tomographic angiography images of the chest with intravenous contrast using pulmonary embolism protocol. CTDI is 18.77 mGy and DLP is 459.2 mGy-cm. This CT exam was performed using one or more of the following dose reduction techniques: automated exposure control, adjustment of the mA and/or kV according to patient size, and/or use of iterative reconstruction technique. MIP reconstructed images were created and reviewed. COMPARISON: None. FINDINGS: Pulmonary arteries: Motion degraded examination with heterogeneous opacification of the pulmonary arteries. No large central pulmonary embolism is seen. Aorta: No acute findings. No thoracic aortic aneurysm. Lungs: Atelectasis is seen in the lower lobes. No mass. Pleural space: Unremarkable. No significant effusion. No pneumothorax. Heart: Cardiomegaly. No significant pericardial effusion. No evidence of RV dysfunction. Bones/joints: Degenerative changes seen in the spine. No acute fracture. No dislocation. Soft tissues: Unremarkable. Lymph nodes: Unremarkable. No enlarged lymph nodes. Gallbladder and bile ducts: Cholelithiasis. IMPRESSION: 1. Motion degraded examination with heterogeneous opacification of the pulmonary arteries. No large central pulmonary embolism is seen. 2. Cardiomegaly. 3. Cholelithiasis.
[2019-03-20] MEDS ORDERED: LEVOFLOXACIN 750 MG TAB PO STA (23:22)
[2019-03-21 00:08] VITALS: BP 119/80; PULSE 84; RESP 18; TEMP 98.6
== END 2019-03-20 23:59 | disposition home or self-care (01) ==
LOC: EC 19:15
DX: N39.0 Urinary tract infection, site not specified (principal); R55 Syncope and collapse; I48.91 Unspecified atrial fibrillation; J45.909 Unspecified asthma, uncomplicated; I25.2 Old myocardial infarction; G40.909 Epilepsy, unspecified, not intractable, without status epilepticus; I11.0 Hypertensive heart disease with heart failure; I50.9 Heart failure, unspecified; E03.9 Hypothyroidism, unspecified; Z79.52 Long term (current) use of systemic steroids; Z79.890 Hormone replacement therapy; Z79.01 Long term (current) use of anticoagulants; Z79.1 Long term (current) use of non-steroidal anti-inflammatories (NSAID); Z79.899 Other long term (current) drug therapy; Z88.0 Allergy status to penicillin
CPT/HCPCS: 99285; 96360; 36415; 85379; 83880; 80053; 83605; 83735; 84100; 84484; 85025; 85610; 85730; 81001; 87086; 71275; 74176; Q9967; 87077; 87186

== ENCOUNTER 2019-03-26 06:03 | Inpatient (IN) | payer MEDICARE, OTHER ==
[2019-03-26] MEDS ORDERED: GENTAMICIN 80 MG in SODIUM CHLORIDE 0.9% 100 ML IVPB ONE (06:11)
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
[2019-03-26] MEDS ORDERED: MAGNESIUM SULFATE-D5W PMX 1 GM in DEXTROSE/WATER 1 100ML.BAG IVPB ONE (06:38)
[2019-03-26] MEDS ORDERED: LORazepam 2 MG/ML INJ IV STA ×2 (06:38→19:51)
[2019-03-26] MEDS ORDERED: IPRATROPIUM-ALBUTEROL 3 ML NEB INHALATION STA (06:38)
[2019-03-26 06:49] LABS: HCT 31.7 % (34.0-46.0); HGB 10.5 gm/dL (11.4-16.0); MCH 29.2 pg (25.0-35.0); MCHC 33.2 g/dL (31.0-37.0); MCV 87.8 fL (80.0-100.0); Mean Platelet Volume 8.5; Platelet Count 242 k/uL (150-450); RBC 3.61 m/uL (3.80-5.40); RDW 15.8 % (11.5-15.5); WBC 8.4 k/uL (3.8-10.6)
[2019-03-26] MEDS: SODIUM CHLORIDE 0.9% 500 ML 500 ML IV SCH ×3 (07:00→07:18)
[2019-03-26 07:04] LABS: Albumin 4.2 g/dL (3.5-5.0); Calcium 9.2 mg/dL (8.4-10.2); Potassium 4.8 mmol/L (3.5-5.1); Total Bilirubin 0.4 mg/dL (0.2-1.3); Total Protein 7.3 g/dL (6.3-8.2)
[2019-03-26 07:07] LABS: Partial Thromboplastin Time 25.7 sec (22.0-30.0); Prothrombin Time 10.3 sec (9.0-12.0)
[2019-03-26] MEDS ORDERED: NALOXONE 0.4 MG/ML 1 ML VIAL IV PRN (07:13)
[2019-03-26] MEDS ORDERED: GENTAMICIN PER PHARMACY MISCELLANE PRN (07:31)
[2019-03-26 07:38] LABS: Amorphous Sediment,Urine Few /hpf; Appearance,Urine Cloudy (Clear); Bilirubin,Urine Negative (Negative); Blood,Urine Negative (Negative); Color,Urine Yellow; Glucose,Urine (UA) Negative (Negative); Ketones,Urine Negative (Negative); Leukocyte Esterase,Urine Trace (Negative); Nitrite,Urine Negative (Negative); PH, Urine 7.5 (5.0-8.0); Protein,Urine Negative (Negative); RBC,Urine 1 /hpf (0-5); Specific Gravity,Urine 1.013 (1.001-1.035); Squamous Epithelial Cell,Urine <1 /hpf (0-4); Urobilinogen,Urine <2.0 mg/dL (<2.0); WBC,Urine 6 /hpf (0-5)
--- NOTE | 2019-03-26 07:59 | XR ---
EXAMINATION TYPE: XR chest 1V portable DATE OF EXAM: 03/26/2019 COMPARISON: Chest x-ray February 01, 2019. CT thorax 6 days ago. HISTORY: Fever. TECHNIQUE: Single AP portable frontal upright view of the chest is obtained. FINDINGS: There is chronic parenchymal changes without suspicious no focal air space opacity, pleura l effusion, or pneumothorax seen. The cardiac silhouette size remains enlarged with upturning apex c onsistent with left ventricular dilatation and atherosclerotic aorta redemonstrated. The osseous st ructures are intact. IMPRESSION: Cardiomegaly and chronic parenchymal changes without new suspicious acute infiltrate.
[2019-03-26] MEDS ORDERED: GENTAMICIN 320 MG in SODIUM CHLORIDE 0.9% 100 ML IVPB ONE (08:00)
[2019-03-26 09:12] LABS: Eosinophils # (M) 0.34 k/uL (0-0.7); Lymphocytes # (M) 2.18 k/uL (1.0-4.8); Monocytes # (M) 1.09 k/uL (0-1.0); Neutrophils # (M) 4.79 k/uL (1.3-7.7); Neutrophils % (M) 57 %; Nucleated Red Blood Cells 0 /100 WBC (0-0); Total Cells Counted 100
[2019-03-26] MEDS ORDERED: ENTERAL FORMULA PEG/G-TUBE SCH (09:45)
[2019-03-26] MEDS: POLYETHYLENE GLYCOL 3350 17 GM POWD.PACK PEG/G-TUBE SCH (10:50)
[2019-03-26] MEDS: APIXABAN 5 MG TAB PEG/G-TUBE SCH ×2 (11:15→20:28)
[2019-03-26] MEDS: LEVOTHYROXINE 75 MCG TAB PEG/G-TUBE SCH (11:15)
[2019-03-26] MEDS: ESLICARBAZEPINE ACETATE PO SCH (11:15)
[2019-03-26] MEDS: NYSTATIN 100,000UNIT/GM CREAM 30 GM TUBE TOPICAL SCH (11:15)
[2019-03-26] MEDS: FERROUS SULFATE ORAL ELIXIR 300 MG/5 ML CUP PEG/G-TUBE SCH (11:15)
[2019-03-26] MEDS: levETIRAcetam ORAL SOLN 500 MG/5 ML CUP PEG/G-TUBE SCH ×2 (11:15→20:28)
[2019-03-26] MEDS: FUROSEMIDE 20 MG TAB PEG/G-TUBE SCH (11:15)
[2019-03-26] MEDS: FAMOTIDINE 20 MG TAB PEG/G-TUBE SCH ×2 (11:16→20:28)
[2019-03-26] MEDS: DICLOFENAC SODIUM GEL 100 GM TUBE TOPICAL SCH ×4 (11:16→23:21)
[2019-03-26] MEDS: AMIODARONE 200 MG TAB PEG/G-TUBE SCH (11:16)
[2019-03-26] MEDS: METOPROLOL TARTRATE 12.5 MG TAB PEG/G-TUBE SCH ×2 (11:16→20:28)
[2019-03-26] MEDS: SODIUM CHLORIDE 0.9% 1,000 ML IV SCH ×2 (11:19→20:34)
[2019-03-26] MEDS: ALBUTEROL NEBULIZED 2.5 MG/3 ML INHALATION PRN ×2 (15:55→19:39)
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
[2019-03-26] MEDS: BUDESONIDE 0.5 MG/2 ML NEBU INHALATION SCH (19:39)
--- NOTE | 2019-03-26 21:58 | XR ---
EXAMINATION: XR chest 1V portable DATE AND TIME: 03/26/2019 8:12 PM CLINICAL INDICATION: PHH; SAMANTHA TECHNIQUE: AP portable upright COMPARISON: 03/26/2019 at 7:20 AM FINDINGS: The cardiac silhouette is markedly enlarged with left ventricular architectural distortion. The 01/06/2013 radiographs and CTA did not show this cardiomegaly with LV architectural distortion, b ut seems to be present in September 2018. Would recommend cardiac echocardiogram evaluation at this time. The lungs are clear, and the pleural spaces are negative. The skeletal structures and soft tissues are negative for acute findings. IMPRESSION: 1) NO ACUTE PULMONARY/PLEURAL PROCESS. 2) MARKED CARDIOMEGALY DUE TO LV ARCHITECTURAL DISTORTION; RECOMMEND CARDIAC ECHOCARDIOGRAPHY.
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
[2019-03-27] MEDS: SODIUM CHLORIDE 0.9% 1,000 ML IV SCH ×2 (06:36→11:29)
[2019-03-27] MEDS: ALBUTEROL NEBULIZED 2.5 MG/3 ML INHALATION PRN ×2 (07:12→11:13)
[2019-03-27] MEDS: BUDESONIDE 0.5 MG/2 ML NEBU INHALATION SCH (07:12)
--- NOTE | 2019-03-27 08:31 | CDI ---
Documentation Clarification Form Date: 03/27/2019 8:18:54 AM From: Melanie Weiss RN, CCDS Admit Date: 03/26/2019 7:13:00 AM Patient Name: Keiko Saavedra Visit Number: [id number] ATTENTION: The Clinical Documentation Specialists (CDI) and [facility] Coding Staff appreciate your assistance in clarifying documentation. Please respond to the clarification below the line at the bottom and electronically sign. The CDI & [facility] Coding staff will review the response and follow-up if needed. Please note: Queries are made part of the Legal Health Record. If you have any questions, please contact the author of this message via ITS. Dr. Rene Keenan CHF is documented in the PMH History/Risk Factors: CHF, PEG Tube, Anemia, CHI, Seizures, Mental retardation, Dementia, HTN, AK, Thyroid Disorder Clinical Indicators: VS/Pulse OX: temp 98.9, Hr 74, RR 20, B/P 118/92, Spo2 98% 50% FIO2 BNP: not checked 11/08/18 Echocardiogram Results: EF 50-55% Chest X Ray: cardiomegly d/t LV distortion Treatment: Lasix 20 mg PO via Peg tube daily Lopressor 12.5 mg BID via peg tube daily In your professional opinion, can you please clarify the acuity and type of CHF if known? Chronic Diastolic Heart Failure: Chronic Systolic & Diastolic Heart Failure: Unable to Determine Other, please specify (Last Revision: October 2017) See today's progress note of March 28 MTDD
--- NOTE | 2019-03-27 08:38 | CDI ---
Documentation Clarification Form Date: 03/27/2019 8:32:18 AM From: Melanie Weiss RN, CCDS Admit Date: 03/26/2019 7:13:00 AM Patient Name: Keiko Saavedra Visit Number: [id number] ATTENTION: The Clinical Documentation Specialists (CDI) and [facility] Coding Staff appreciate your assistance in clarifying documentation. Please respond to the clarification below the line at the bottom and electronically sign. The CDI & [facility] Coding staff will review the response and follow-up if needed. Please note: Queries are made part of the Legal Health Record. If you have any questions, please contact the author of this message via ITS. Dr. Rene Campos diagnosis of anemia lacks specificity to accurately reflect your patients severity of condition and clarification is needed. History/Risk Factors: Atrial Fib on anticoagulation, Asthma, CAD, HTN, MS, CHI, past issues with respiratory failure Clinical indicators: 03/26 ED Note: "Labs with anemia, is improved from baseline Mild hyponatremia, lactic acidosis Troponin is not elevated." Hemoglobin: 10.5 Hematocrit: 31.7 Treatment: Monitoring labs Feosol 325 mg via Peg tube QD In order to capture the severity of condition, please clarify the type of anemia and etiology if known: Chronic blood loss anemia Iron deficiency anemia Drug induced anemia Nutritional anemia Anemia of chronic disease Unable to determine Other, please specify (Last Revision: April 2017) Unable to determine MTDD
[2019-03-27] MEDS: SOOLANTRA 1% TOPICAL SCH (09:47)
[2019-03-27] MEDS: POLYETHYLENE GLYCOL 3350 17 GM POWD.PACK PEG/G-TUBE SCH (09:47)
[2019-03-27] MEDS: DICLOFENAC SODIUM GEL 100 GM TUBE TOPICAL SCH ×4 (09:53→22:07)
[2019-03-27] MEDS: ESLICARBAZEPINE ACETATE PO SCH (09:54)
[2019-03-27] MEDS: AMIODARONE 200 MG TAB PEG/G-TUBE SCH (09:54)
[2019-03-27] MEDS: levETIRAcetam ORAL SOLN 500 MG/5 ML CUP PEG/G-TUBE SCH ×2 (09:54→20:30)
[2019-03-27] MEDS: FUROSEMIDE 20 MG TAB PEG/G-TUBE SCH ×2 (09:54→17:11)
[2019-03-27] MEDS: APIXABAN 5 MG TAB PEG/G-TUBE SCH ×2 (09:54→20:31)
[2019-03-27] MEDS: METOPROLOL TARTRATE 12.5 MG TAB PEG/G-TUBE SCH ×2 (09:54→20:31)
[2019-03-27] MEDS: FERROUS SULFATE ORAL ELIXIR 300 MG/5 ML CUP PEG/G-TUBE SCH (09:54)
[2019-03-27] MEDS: LEVOTHYROXINE 75 MCG TAB PEG/G-TUBE SCH (09:55)
[2019-03-27] MEDS: CALCIUM CARBONATE LIQUID 500 MG/5 ML CUP PEG/G-TUBE SCH (09:55)
[2019-03-27] MEDS: FAMOTIDINE 20 MG TAB PEG/G-TUBE SCH ×2 (09:55→20:31)
[2019-03-27] MEDS: NYSTATIN 100,000UNIT/GM CREAM 30 GM TUBE TOPICAL SCH (09:57)
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
[2019-03-27] MEDS: IPRATROPIUM-ALBUTEROL 3 ML NEB INHALATION SCH ×4 (11:21→23:51)
[2019-03-27 11:28] LABS: Basophils # (A) 0.1 k/uL (0-0.2); Basophils % (A) 1 %; Eosinophils # (A) 0.1 k/uL (0-0.7); Eosinophils % (A) 1 %; HCT 28.6 % (34.0-46.0); HGB 9.1 gm/dL (11.4-16.0); Lymphocytes # (A) 0.7 k/uL (1.0-4.8); Lymphocytes % (A) 7 %; MCH 28.7 pg (25.0-35.0); MCHC 31.8 g/dL (31.0-37.0); Mean Platelet Volume 8.7; Monocytes # (A) 0.8 k/uL (0-1.0); Monocytes % (A) 8 %; Neutrophils # (A) 7.8 k/uL (1.3-7.7); Neutrophils % (A) 81 %; Platelet Count 225 k/uL (150-450); RBC 3.18 m/uL (3.80-5.40); RDW 15.5 % (11.5-15.5); WBC 9.7 k/uL (3.8-10.6)
[2019-03-27] MEDS ORDERED: methylPREDNISolone SOD SUCCI 40 MG/ML 1 ML VIAL IV SCH (11:30)
[2019-03-27 11:44] LABS: ALT 30 U/L (9-52); AST 42 U/L (14-36); African American GFR (CKD) >90 (>60 ml/min/1.73 sqM); Albumin 3.8 g/dL (3.5-5.0); Alkaline Phosphatase 117 U/L (38-126); Anion Gap 7 mmol/L; Blood Urea Nitrogen 22 mg/dL (7-17); Calcium 9.1 mg/dL (8.4-10.2); Carbon Dioxide 26 mmol/L (22-30); Chloride 105 mmol/L (98-107); Glucose 93 mg/dL (74-99); Non-African American GFR(CKD) >90 (>60 ml/min/1.73 sqM); Potassium 4.9 mmol/L (3.5-5.1); Sodium 138 mmol/L (137-145); Total Bilirubin 0.1 mg/dL (0.2-1.3); Total Protein 6.5 g/dL (6.3-8.2)
[2019-03-27] MEDS ORDERED: RACEPINEPHRINE 2.25% NEB 0.5 ML NEBU INHALATION STA (12:40)
[2019-03-27] MEDS ORDERED: LORazepam 2 MG/ML INJ IV STA (13:08)
[2019-03-27] MEDS: LEVOFLOXACIN 500MG-D5W PMX 500 MG in DEXTROSE/WATER 1 100ML.BAG IVPB SCH (13:49)
--- NOTE | 2019-03-27 14:49 | CT ---
EXAMINATION TYPE: CT soft tissue neck wo con DATE OF EXAM: 03/27/2019 HISTORY: Stridor COMPARISON: Prior CT 03/20/2019 CT DLP: 268 mGycm. Automated Exposure Control for Dose Reduction was Utilized. Exam performed without intravenous contrast. FINDINGS: Lack of intravenous contrast may compromise sensitivity. Linear high attenuation present in the distribution of the internal jugular vein extending into the superior vena cava and may be atrop hic, there may been prior instrumentation, catheter placement, correlate with appropriate history. Airway: No gross abnormality seen. Parotid/submandibular glands: No gross abnormality seen. Carotid/Vascular Structures: Lack of contrast limits evaluation and there are vascular calcifications present Osseous Structures: Degenerative disc changes are present. Is loss of disc at the intervertebral leve ls. C4-5 shows effusion. Other: Cerebellar and cortical atrophy is noted. IMPRESSION: Noncontrast exam. Patent airway. Degenerative disc disease. Cerebellar and cortical atrop hy. Findings along the distribution of the internal jugular vein as described.
[2019-03-27] MEDS: CLINDAMYCIN 300 MG in DEXTROSE 5% IN WATER 50 ML IVPB SCH ×6 (15:17→23:20)
--- NOTE | 2019-03-27 16:01 | ECHOF ---
Referral Reason:Possible CHF MEASUREMENTS -------- HEIGHT: 165.1 cm WEIGHT: 64.9 kg BP: 129/58 RVIDd: 2.1 cm (< 3.3) IVSd: 1.1 cm (0.6 - 1.1) LVIDd: 4.5 cm (3.9 - 5.3) LVPWd: 1.0 cm (0.6 - 1.1) IVSs: 1.5 cm LVIDs: 3.7 cm LVPWs: 1.6 cm LA Diam: 3.3 cm (2.7 - 3.8) LAESV Index (A-L): 33.07 ml/m Ao Diam: 3.1 cm (2.0 - 3.7) AV Cusp: 2.0 cm (1.5 - 2.6) EPSS: 1.0 cm MV E Edward: 1.19 m/s MV DecT: 179 ms MV A Edward: 0.78 m/s MV E/A Ratio: 1.51 AR PHT: 539 ms RAP: 5.00 mmHg RVSP: 43.39 mmHg MV EF SLOPE: 72.41 mm/s (70 - 150) MV EXCURSION: 1.87 cm (> 18.000) FINDINGS -------- Sinus rhythm. The left ventricular size is normal. There is borderline concentric left ventricular hypertrophy. Overall left ventricular systolic function is mildly impaired with, an EF between 45 - 50 %. Large anurysm of ventricular lateral wall The right ventricle is normal in size. Left atrium is mildly dilated by volume. The right atrium is normal in size and function. Interatrial and interventricular septum intact. There is mild aortic valve sclerosis without stenosis. The mitral valve leaflets are mildly thickened. Mild mitral annular calcification present. Mild m itral regurgitation is present. Mild tricuspid regurgitation present. There is mild pulmonary hypertension. The right ventricular systolic pressure, as measured by Doppler, is 43.39mmHg. Trace/mild (physiologic) pulmonic regurgitation. There is no pericardial effusion. CONCLUSIONS -------- 1. Sinus rhythm. 2. The left ventricular size is normal. 3. There is borderline concentric left ventricular hypertrophy. 4. Overall left ventricular systolic function is mildly impaired with, an EF between 45 - 50 %. 5. Large anurysm of ventricular lateral wall 6. The right ventricle is normal in size. 7. Left atrium is mildly dilated by volume. 8. The right atrium is normal in size and function. 9. Interatrial and interventricular septum intact. 10. There is mild aortic valve sclerosis without stenosis. 11. The mitral valve leaflets are mildly thickened. 12. Mild mitral annular calcification present. 13. Mild mitral regurgitation is present. 14. Mild tricuspid regurgitation present. 15. There is mild pulmonary hypertension. 16. The right ventricular systolic pressure, as measured by Doppler, is 43.39mmHg. 17. Trace/mild (physiologic) pulmonic regurgitation. 18. There is no pericardial effusion. BOOKBINDER CHIEF: LUPE Diggs
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
[2019-03-27] MEDS: methylPREDNISolone SOD SUCCI 125 MG/2 ML VIAL IV SCH ×2 (18:07→23:21)
[2019-03-27] MEDS: BUDESONIDE 1 MG/2 ML NEBU INHALATION SCH (19:40)
[2019-03-27] MEDS: FORMOTEROL FUMARATE 20 MCG/2 ML NEBU INHALATION SCH (19:40)
[2019-03-27] MEDS ORDERED: GENTAMICIN 320 MG in SODIUM CHLORIDE 0.9% 100 ML IVPB SCH ×4 (20:00)
[2019-03-27] MEDS: LORazepam 2 MG/ML INJ IV PRN (20:57)
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
--- NOTE | 2019-03-27 23:37 | EEG ---
ELECTROENCEPHALOGRAM REPORT DATE OF PROCEDURE: 03/26/2019. ELECTROENCEPHALOGRAM (EEG) REPORT: TECHNIQUE: A routine 18-channel EEG was performed with video using the 10/20 international electrode placement system. HISTORY: Patient brought to the emergency room for decreased responsiveness. Patient was given Ativan for tremor/possible seizure. CURRENT MEDICATIONS: Unknown. STUDY DURATION: 21 minutes. FINDINGS: Please note that an excess of beta frequency activity was noted. This is not epileptiform in nature and may in part be due to medication effect. BACKGROUND: For essentially the majority of this recording, the patient was drowsy or asleep. During the rare periods of maximal alertness, the background activity consisted of 7 to 8 Hz rhythmic waveforms. ACTIVATION: Hyperventilation: Not performed. Photic stimulation: Mild symmetric driving seen. Sleep: Stages I and II sleep noted. ABNORMALITIES: During the rare periods of maximal alertness, diffuse 5 to 7 Hz polymorphic theta range slowing was seen with superimposed faster, beta frequencies. IMPRESSION: Limited study, predominantly sleep EEG. During the rare periods of maximal alertness, diffuse theta range slowing was seen which is not epileptiform in nature. These findings indicate mild diffuse cerebral dysfunction which may in part be due to medication effect. These findings may also be state-related (drowsiness or sleep). No epileptiform activity was present. No seizures were recorded. Clinical correlation is recommended. If clinical concern remains for a seizure disorder, would suggest a repeat study. MMODL / IJN: [id number] / MTDD
[2019-03-28] MEDS: IPRATROPIUM-ALBUTEROL 3 ML NEB INHALATION SCH ×5 (03:48→19:57)
[2019-03-28] MEDS: CLINDAMYCIN 300 MG in DEXTROSE 5% IN WATER 50 ML IVPB SCH ×4 (06:37→13:22)
[2019-03-28] MEDS: methylPREDNISolone SOD SUCCI 125 MG/2 ML VIAL IV SCH ×3 (06:37→17:32)
[2019-03-28] MEDS: SODIUM CHLORIDE 0.9% 1,000 ML IV SCH ×2 (06:37→12:02)
[2019-03-28] MEDS ORDERED: GENTAMICIN 320 MG in SODIUM CHLORIDE 0.9% 100 ML IVPB SCH (08:00)
[2019-03-28 08:29] LABS: African American GFR (CKD) >90 (>60 ml/min/1.73 sqM); Non-African American GFR(CKD) 83 (>60 ml/min/1.73 sqM)
[2019-03-28] MEDS: AMIODARONE 200 MG TAB PEG/G-TUBE SCH (08:30)
[2019-03-28] MEDS: APIXABAN 5 MG TAB PEG/G-TUBE SCH ×2 (08:30→21:07)
[2019-03-28] MEDS: DICLOFENAC SODIUM GEL 100 GM TUBE TOPICAL SCH ×4 (08:30→21:06)
[2019-03-28] MEDS: FAMOTIDINE 20 MG TAB PEG/G-TUBE SCH ×2 (08:31→21:06)
[2019-03-28] MEDS: FERROUS SULFATE ORAL ELIXIR 300 MG/5 ML CUP PEG/G-TUBE SCH (08:31)
[2019-03-28] MEDS: FUROSEMIDE 20 MG TAB PEG/G-TUBE SCH (08:31)
[2019-03-28] MEDS: ESLICARBAZEPINE ACETATE PO SCH (08:31)
[2019-03-28] MEDS: LEVOTHYROXINE 75 MCG TAB PEG/G-TUBE SCH (08:32)
[2019-03-28] MEDS: METOPROLOL TARTRATE 12.5 MG TAB PEG/G-TUBE SCH ×2 (08:32→21:06)
[2019-03-28] MEDS: POLYETHYLENE GLYCOL 3350 17 GM POWD.PACK PEG/G-TUBE SCH (08:33)
[2019-03-28] MEDS: levETIRAcetam ORAL SOLN 500 MG/5 ML CUP PEG/G-TUBE SCH ×2 (08:34→21:06)
[2019-03-28] MEDS: FORMOTEROL FUMARATE 20 MCG/2 ML NEBU INHALATION SCH ×2 (08:40→19:57)
[2019-03-28] MEDS: BUDESONIDE 1 MG/2 ML NEBU INHALATION SCH ×2 (08:40→19:57)
[2019-03-28 08:49] LABS: HCT 27.1 % (34.0-46.0); MCH 29.6 pg (25.0-35.0); MCV 89.6 fL (80.0-100.0); Mean Platelet Volume 8.3; Platelet Count 209 k/uL (150-450); RBC 3.03 m/uL (3.80-5.40); RDW 15.5 % (11.5-15.5); WBC 10.9 k/uL (3.8-10.6)
[2019-03-28 08:59] LABS: African American GFR (CKD) >90 (>60 ml/min/1.73 sqM); Anion Gap 10 mmol/L; Blood Urea Nitrogen 24 mg/dL (7-17); Calcium 9.5 mg/dL (8.4-10.2); Carbon Dioxide 27 mmol/L (22-30); Chloride 100 mmol/L (98-107); Glucose 143 mg/dL (74-99); Non-African American GFR(CKD) >90 (>60 ml/min/1.73 sqM); Potassium 4.2 mmol/L (3.5-5.1); Sodium 137 mmol/L (137-145)
[2019-03-28] MEDS: NYSTATIN 100,000UNIT/GM CREAM 30 GM TUBE TOPICAL SCH (09:26)
[2019-03-28] MEDS: SOOLANTRA 1% TOPICAL SCH (09:26)
[2019-03-28] MEDS: CALCIUM CARBONATE LIQUID 500 MG/5 ML CUP PEG/G-TUBE SCH (09:27)
[2019-03-28] MEDS: LEVOFLOXACIN 500MG-D5W PMX 500 MG in DEXTROSE/WATER 1 100ML.BAG IVPB SCH (12:01)
[2019-03-28 12:03] LABS: Glucose,Whole Blood 168 mg/dL (75-99)
[2019-03-28] MEDS ORDERED: INSULIN ASPART (NovoLOG) 100 UNIT/ML VIAL SQ SCH (13:00)
[2019-03-28] MEDS ORDERED: FUROSEMIDE 10 MG/ML 2 ML VIAL IV SCH (15:00)
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
[2019-03-28 17:09] LABS: Glucose,Whole Blood 131 mg/dL (75-99)
[2019-03-28] MEDS: FUROSEMIDE 10 MG/ML 2 ML VIAL IV SCH (17:31)
[2019-03-28] MEDS: INSULIN ASPART (NovoLOG) 100 UNIT/ML VIAL SQ SCH ×2 (17:32→23:46)
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
[2019-03-28] MEDS: LORazepam 2 MG/ML INJ IV PRN (21:25)
[2019-03-28 23:39] LABS: Glucose,Whole Blood 145 mg/dL (75-99)
[2019-03-28] MEDS: methylPREDNISolone SOD SUCCI 40 MG/ML 1 ML VIAL IV SCH (23:46)
[2019-03-29] MEDS: IPRATROPIUM-ALBUTEROL 3 ML NEB INHALATION SCH ×5 (01:21→16:57)
[2019-03-29 05:13] VITALS: RESP 16
[2019-03-29 06:13] LABS: Glucose,Whole Blood 178 mg/dL (75-99)
[2019-03-29] MEDS: INSULIN ASPART (NovoLOG) 100 UNIT/ML VIAL SQ SCH ×2 (06:17→12:05)
[2019-03-29 07:00] LABS: African American GFR (CKD) >90 (>60 ml/min/1.73 sqM); Non-African American GFR(CKD) 89 (>60 ml/min/1.73 sqM)
[2019-03-29] MEDS: methylPREDNISolone SOD SUCCI 40 MG/ML 1 ML VIAL IV SCH (08:03)
[2019-03-29] MEDS: FERROUS SULFATE ORAL ELIXIR 300 MG/5 ML CUP PEG/G-TUBE SCH (08:04)
[2019-03-29] MEDS: FUROSEMIDE 10 MG/ML 2 ML VIAL IV SCH (08:04)
[2019-03-29] MEDS: ESLICARBAZEPINE ACETATE PO SCH (08:04)
[2019-03-29] MEDS: levETIRAcetam ORAL SOLN 500 MG/5 ML CUP PEG/G-TUBE SCH (08:04)
[2019-03-29] MEDS: LEVOTHYROXINE 75 MCG TAB PEG/G-TUBE SCH (08:05)
[2019-03-29] MEDS: METOPROLOL TARTRATE 12.5 MG TAB PEG/G-TUBE SCH (08:05)
[2019-03-29] MEDS: FAMOTIDINE 20 MG TAB PEG/G-TUBE SCH (08:05)
[2019-03-29] MEDS: AMIODARONE 200 MG TAB PEG/G-TUBE SCH (08:05)
[2019-03-29] MEDS: APIXABAN 5 MG TAB PEG/G-TUBE SCH (08:05)
[2019-03-29] MEDS: POLYETHYLENE GLYCOL 3350 17 GM POWD.PACK PEG/G-TUBE SCH (08:05)
[2019-03-29] MEDS: DICLOFENAC SODIUM GEL 100 GM TUBE TOPICAL SCH ×2 (08:10→12:05)
[2019-03-29] MEDS: CALCIUM CARBONATE LIQUID 500 MG/5 ML CUP PEG/G-TUBE SCH (08:11)
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
[2019-03-29] MEDS: SOOLANTRA 1% TOPICAL SCH (09:10)
[2019-03-29] MEDS: NYSTATIN 100,000UNIT/GM CREAM 30 GM TUBE TOPICAL SCH (09:10)
[2019-03-29] MEDS: BUDESONIDE 1 MG/2 ML NEBU INHALATION SCH (09:16)
[2019-03-29] MEDS: FORMOTEROL FUMARATE 20 MCG/2 ML NEBU INHALATION SCH (09:16)
[2019-03-29 09:23] LABS: Anisocytosis Slight; HCT 27.6 % (34.0-46.0); HGB 9.2 gm/dL (11.4-16.0); MCH 29.5 pg (25.0-35.0); MCHC 33.2 g/dL (31.0-37.0); MCV 88.7 fL (80.0-100.0); Mean Platelet Volume 8.4; Platelet Count 250 k/uL (150-450); RBC 3.12 m/uL (3.80-5.40); RDW 16.4 % (11.5-15.5); WBC 11.6 k/uL (3.8-10.6)
[2019-03-29 11:39] LABS: Anion Gap 12 mmol/L; Blood Urea Nitrogen 30 mg/dL (7-17); Calcium 9.5 mg/dL (8.4-10.2); Carbon Dioxide 28 mmol/L (22-30); Chloride 98 mmol/L (98-107); Glucose 158 mg/dL (74-99); Sodium 138 mmol/L (137-145)
[2019-03-29 12:03] LABS: Glucose,Whole Blood 115 mg/dL (75-99)
[2019-03-29] MEDS: SODIUM CHLORIDE 0.9% 1,000 ML IV SCH (12:09)
[2019-03-29 12:15] VITALS: BP 116/64; TEMP 97
[2019-03-29 12:24] VITALS: PULSE 84
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
[2019-03-29 14:48] VITALS: BMI 22.5
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
[2019-03-29] MEDS ORDERED: FUROSEMIDE 20 MG TAB PO SCH (16:00)
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
[2019-03-30] MEDS ORDERED: predniSONE 10 MG TAB PO SCH (09:00)
== END 2019-03-29 18:38 | disposition home or self-care (01) | DRG 689 ==
LOC: EC 06:03 → 3SCARD 07:13
PROVIDERS: ADMIT Hospitalist; ATTEND Hospitalist
PROC: 5A09357 Assistance with Respiratory Ventilation, Less than 24 Consecutive Hours, Continuous Positive Airway Pressure (ICD-10-PCS; principal; 2019-03-26)
DX: N39.0 Urinary tract infection, site not specified (principal); G93.41 Metabolic encephalopathy; G82.50 Quadriplegia, unspecified; I50.43 Acute on chronic combined systolic (congestive) and diastolic (congestive) heart failure; J45.21 Mild intermittent asthma with (acute) exacerbation; I25.3 Aneurysm of heart; E87.1 Hypo-osmolality and hyponatremia; E87.2 Acidosis; I11.0 Hypertensive heart disease with heart failure; I25.2 Old myocardial infarction; I35.0 Nonrheumatic aortic (valve) stenosis; D64.9 Anemia, unspecified; E03.9 Hypothyroidism, unspecified; E86.0 Dehydration; F03.90 Unspecified dementia, unspecified severity, without behavioral disturbance, psychotic disturbance, mood disturbance, and anxiety; F41.9 Anxiety disorder, unspecified; F79 Unspecified intellectual disabilities; G24.9 Dystonia, unspecified; G40.909 Epilepsy, unspecified, not intractable, without status epilepticus; I25.10 Atherosclerotic heart disease of native coronary artery without angina pectoris; I48.2 Chronic atrial fibrillation; Z79.01 Long term (current) use of anticoagulants; R13.10 Dysphagia, unspecified; V89.2XXS Person injured in unspecified motor-vehicle accident, traffic, sequela; Z79.4 Long term (current) use of insulin; Z79.51 Long term (current) use of inhaled steroids; Z79.899 Other long term (current) drug therapy; Z82.49 Family history of ischemic heart disease and other diseases of the circulatory system; Z87.01 Personal history of pneumonia (recurrent); Z88.0 Allergy status to penicillin; Z93.1 Gastrostomy status; Z99.3 Dependence on wheelchair; Z87.440 Personal history of urinary (tract) infections; Z87.820 Personal history of traumatic brain injury; R32 Unspecified urinary incontinence; R15.9 Full incontinence of feces
CPT/HCPCS: 36415; 51798; 70490; 71045; 80048; 80053; 80170; 81001; 82565; 83605; 83880; 84145; 84484; 85025; 85027; 85610; 85730; 87040; 87086; 93005; 93306; 94640; 94660; 94760; 95819; 96365; 96368; 96375; 99285

== ENCOUNTER → 2019-11-04 | Outpatient (CLI) | payer MEDICARE, OTHER ==
--- NOTE | 2019-11-04 09:57 | US ---
EXAMINATION TYPE: US extremity nonvasc mass RT DATE OF EXAM: 11/04/2019 COMPARISON: NONE CLINICAL HISTORY: R22.41 Localized swelling, mass and lump, right lo. Palpable, hard, non-mobile lump right calf. Family noticed about 5 days ago. Patient is resident at a snf, cannot give histor y. No known injury. Patient scanned in wheelchair Complex area visualized at the patient's palpable lump right calf measuring4.4 x 1.5 x 3.5. There is some vascularity visualized within IMPRESSION: Probable hematoma at the site of clinical concern. Correlate clinically.
== END | disposition home or self-care (01) ==
LOC: RADUSWWP 08:54
PROVIDERS: ATTEND Family Medicine
DX: R22.41 Localized swelling, mass and lump, right lower limb (principal)

== ENCOUNTER 2021-01-25 10:10 | Inpatient (IN) | payer MEDICARE, OTHER ==
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
--- NOTE | 2021-01-25 11:17 | XR ---
EXAMINATION TYPE: XR chest 1V portable DATE OF EXAM: 01/25/2021 HISTORY: Shortness of breath. COMPARISON: 03/26/2019 TECHNIQUE: Single view of the chest is submitted. FINDINGS: Demonstrated are scattered senescent parenchymal change. Right upper lobe infiltrate as well as left medial basilar atelectasis. The heart is stable. Hilar and mediastinal structures are within normal limits. Degenerative changes are seen of the dorsal spine. IMPRESSION: 1. Right upper lobe infiltrate as well as left medial basilar atelectasis.
[2021-01-25 11:21] LABS: Basophils % (A) 0 %; Eosinophils # (A) 0.3 k/uL (0-0.7); Eosinophils % (A) 3 %; HGB 9.4 gm/dL (11.4-16.0); Lymphocytes # (A) 0.6 k/uL (1.0-4.8); Lymphocytes % (A) 5 %; MCH 31.5 pg (25.0-35.0); MCHC 34.7 g/dL (31.0-37.0); MCV 90.8 fL (80.0-100.0); Mean Platelet Volume 8.8; Monocytes # (A) 1.2 k/uL (0-1.0); Monocytes % (A) 10 %; Neutrophils # (A) 9.5 k/uL (1.3-7.7); Neutrophils % (A) 80 %; Platelet Count 208 k/uL (150-450); RBC 2.98 m/uL (3.80-5.40); RDW 13.6 % (11.5-15.5); WBC 11.8 k/uL (3.8-10.6)
[2021-01-25] MEDS ORDERED: cefTRIAXone IN SWFI 1,000 MG/10 ML SYRINGE IVP STA (11:31)
[2021-01-25] MEDS ORDERED: AZITHROMYCIN 500 MG in SODIUM CHLORIDE 0.9% 250 ML IVPB STA (11:31)
[2021-01-25 11:32] LABS: Partial Thromboplastin Time 26.3 sec (22.0-30.0); Prothrombin Time 10.5 sec (9.0-12.0)
[2021-01-25 11:37] LABS: ALT 19 U/L (4-34); AST 37 U/L (14-36); African American GFR (CKD) >90 (>60 ml/min/1.73 sqM); Albumin 3.7 g/dL (3.5-5.0); Alkaline Phosphatase 121 U/L (38-126); Anion Gap 8 mmol/L; Blood Urea Nitrogen 34 mg/dL (7-17); Calcium 8.9 mg/dL (8.4-10.2); Carbon Dioxide 34 mmol/L (22-30); Chloride 88 mmol/L (98-107); Glucose 110 mg/dL (74-99); Magnesium 2.4 mg/dL (1.6-2.3); Non-African American GFR(CKD) 86 (>60 ml/min/1.73 sqM); Potassium 4.3 mmol/L (3.5-5.1); Sodium 130 mmol/L (137-145); Total Bilirubin 0.4 mg/dL (0.2-1.3); Total Protein 6.1 g/dL (6.3-8.2)
[2021-01-25] MEDS ORDERED: NALOXONE 0.4 MG/ML 1 ML VIAL IV PRN (12:53)
[2021-01-25] MEDS ORDERED: ALBUTEROL NEBULIZED 2.5 MG/3 ML INHALATION PRN (13:00)
[2021-01-25] MEDS ORDERED: NON FORMULARY DRUG (Jevity 1.5 Cal Liquid 1,000 ML Liquid) PEG/G-TUBE SCH (13:00)
[2021-01-25] MEDS ORDERED: BUDESONIDE 0.5 MG/2 ML NEBU INHALATION SCH (20:00)
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
[2021-01-25] MEDS: ALBUTEROL NEBULIZED 2.5 MG/3 ML INHALATION SCH (20:37)
[2021-01-25] MEDS: BUDESONIDE 1 MG/2 ML NEBU INHALATION SCH (20:37)
[2021-01-25] MEDS: FAMOTIDINE 20 MG TAB PEG/G-TUBE SCH (21:43)
[2021-01-25] MEDS: APIXABAN 5 MG TAB PEG/G-TUBE SCH (21:43)
[2021-01-25] MEDS: METOPROLOL TARTRATE 12.5 MG TAB PEG/G-TUBE SCH (21:44)
[2021-01-25] MEDS: methylPREDNISolone SOD SUCCI 40 MG/ML 1 ML VIAL IV SCH (22:57)
[2021-01-25] MEDS: levETIRAcetam ORAL SOLN 500 MG/5 ML CUP PEG/G-TUBE SCH (22:57)
[2021-01-26] MEDS: ALBUTEROL NEBULIZED 2.5 MG/3 ML INHALATION SCH ×6 (00:24→19:44)
[2021-01-26] MEDS: LEVOTHYROXINE 75 MCG TAB PEG/G-TUBE SCH (05:47)
[2021-01-26] MEDS: BUDESONIDE 1 MG/2 ML NEBU INHALATION SCH (07:29)
[2021-01-26] MEDS ORDERED: FUROSEMIDE 40 MG TAB PEG/G-TUBE SCH (09:00)
[2021-01-26 09:11] LABS: Basophils # (A) 0.01 X 10*3/uL (0.00-0.10); Basophils % (A) 0.1 %; Eosinophils # (A) 0 X 10*3/uL (0.04-0.35); Eosinophils % (A) 0 %; HCT 24.6 % (37.2-46.3); HGB 8.1 g/dL (12.0-15.0); Lymphocytes # (A) 0.16 X 10*3/uL (0.90-5.00); Lymphocytes % (A) 1.4 %; MCH 30.3 pg (27.0-32.0); MCHC 32.9 g/dL (32.0-37.0); MCV 92.1 fL (80.0-97.0); Mean Platelet Volume 11.8 fL (9.5-12.2); Monocytes # (A) 0.32 X 10*3/uL (0.20-1.00); Monocytes % (A) 2.7 %; Neutrophils # (A) 11.23 X 10*3/uL (1.80-7.70); Neutrophils % (A) 95.2 %; Platelet Count 220 X 10*3/uL (140-440); RBC 2.67 X 10*6/uL (4.10-5.20); RDW 14.4 % (11.5-14.5); WBC 11.79 X 10*3/uL (4.50-10.00)
[2021-01-26] MEDS: levETIRAcetam ORAL SOLN 500 MG/5 ML CUP PEG/G-TUBE SCH ×2 (09:26→20:37)
[2021-01-26] MEDS: ASPIRIN 81 MG PEG/G-TUBE SCH (09:26)
[2021-01-26] MEDS: BACLOFEN 10 MG TAB PEG/G-TUBE SCH (09:27)
[2021-01-26] MEDS: METOPROLOL TARTRATE 12.5 MG TAB PEG/G-TUBE SCH ×2 (09:27→20:38)
[2021-01-26] MEDS: AMIODARONE 200 MG TAB PEG/G-TUBE SCH (09:27)
[2021-01-26] MEDS: FAMOTIDINE 20 MG TAB PEG/G-TUBE SCH ×2 (09:28→20:38)
[2021-01-26] MEDS: APIXABAN 5 MG TAB PEG/G-TUBE SCH ×2 (09:28→20:38)
[2021-01-26] MEDS: polyethylene glycoL 3350 17 GM POWD.PACK PEG/G-TUBE SCH (09:29)
[2021-01-26 10:09] LABS: African American GFR (CKD) 103.9 (60.0-200.0); BUN/Creat Ratio 38.57 Ratio (12.00-20.00); Calcium 8.8 mg/dL (8.7-10.3); Non-African American GFR(CKD) 89.7 (60.0-200.0); Potassium 4.1 mmol/L (3.5-5.5)
[2021-01-26] MEDS: CLINDAMYCIN 600 MG in DEXTROSE 5% IN WATER 50 ML IVPB SCH ×4 (10:53→19:31)
[2021-01-26] MEDS: methylPREDNISolone SOD SUCCI 40 MG/ML 1 ML VIAL IV SCH ×2 (10:53→16:21)
[2021-01-26] MEDS: FUROSEMIDE 10 MG/ML 4 ML VIAL IV SCH ×2 (10:53→20:38)
[2021-01-26] MEDS: FERROUS SULFATE ORAL ELIXIR 300 MG/5 ML CUP PEG/G-TUBE SCH (11:51)
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
[2021-01-27] MEDS: methylPREDNISolone SOD SUCCI 40 MG/ML 1 ML VIAL IV SCH ×3 (00:47→16:27)
[2021-01-27] MEDS: BUDESONIDE 1 MG/2 ML NEBU INHALATION SCH ×3 (01:00→19:50)
[2021-01-27] MEDS: ALBUTEROL NEBULIZED 2.5 MG/3 ML INHALATION SCH ×6 (01:01→19:50)
[2021-01-27] MEDS: CLINDAMYCIN 600 MG in DEXTROSE 5% IN WATER 50 ML IVPB SCH ×6 (03:31→19:22)
[2021-01-27] MEDS: LEVOTHYROXINE 75 MCG TAB PEG/G-TUBE SCH (06:10)
[2021-01-27 07:05] LABS: Basophils % (A) 0 %; Eosinophils % (A) 0 %; HCT 25.8 % (34.0-46.0); HGB 8.7 gm/dL (11.4-16.0); Lymphocytes # (A) 0.4 k/uL (1.0-4.8); Lymphocytes % (A) 3 %; MCH 30.8 pg (25.0-35.0); MCHC 33.7 g/dL (31.0-37.0); MCV 91.4 fL (80.0-100.0); Mean Platelet Volume 8.4; Monocytes # (A) 0.8 k/uL (0-1.0); Monocytes % (A) 6 %; Neutrophils # (A) 12.3 k/uL (1.3-7.7); Neutrophils % (A) 90 %; Platelet Count 272 k/uL (150-450); RBC 2.83 m/uL (3.80-5.40); RDW 13.6 % (11.5-15.5); WBC 13.6 k/uL (3.8-10.6)
[2021-01-27] MEDS: FUROSEMIDE 10 MG/ML 4 ML VIAL IV SCH ×2 (08:22→21:43)
--- NOTE | 2021-01-27 08:34 | XR ---
EXAMINATION TYPE: XR chest 1V portable DATE OF EXAM: 01/27/2021 HISTORY: Shortness of breath. COMPARISON: 01/25/2021 TECHNIQUE: Single view of the chest is submitted. FINDINGS: Demonstrated are scattered senescent parenchymal change. Much improved infiltrate right upper lobe relative to prior examination. Persistent left medial basil ar atelectasis or additional infiltrate. Continued cardiomegaly. Hilar and mediastinal structures are within normal limits. Degenerative changes are seen of the dorsal spine. IMPRESSION: 1. Much improved infiltrate right upper lobe relative to prior examination. Persistent left medial b asilar atelectasis or additional infiltrate.
[2021-01-27] MEDS: ASPIRIN 81 MG PEG/G-TUBE SCH (10:33)
[2021-01-27] MEDS: APIXABAN 5 MG TAB PEG/G-TUBE SCH ×2 (10:34→20:52)
[2021-01-27] MEDS: FAMOTIDINE 20 MG TAB PEG/G-TUBE SCH ×2 (10:34→20:53)
[2021-01-27] MEDS: METOPROLOL TARTRATE 12.5 MG TAB PEG/G-TUBE SCH ×2 (10:34→20:52)
[2021-01-27] MEDS: AMIODARONE 200 MG TAB PEG/G-TUBE SCH (10:35)
[2021-01-27] MEDS: BACLOFEN 10 MG TAB PEG/G-TUBE SCH (10:36)
[2021-01-27] MEDS: FERROUS SULFATE ORAL ELIXIR 300 MG/5 ML CUP PEG/G-TUBE SCH (10:37)
[2021-01-27] MEDS: polyethylene glycoL 3350 17 GM POWD.PACK PEG/G-TUBE SCH (10:37)
[2021-01-27] MEDS: levETIRAcetam ORAL SOLN 500 MG/5 ML CUP PEG/G-TUBE SCH ×2 (10:37→21:38)
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
[2021-01-28] MEDS: ALBUTEROL NEBULIZED 2.5 MG/3 ML INHALATION SCH ×6 (00:03→21:51)
[2021-01-28] MEDS: methylPREDNISolone SOD SUCCI 40 MG/ML 1 ML VIAL IV SCH ×3 (00:09→16:13)
[2021-01-28] MEDS: CLINDAMYCIN 600 MG in DEXTROSE 5% IN WATER 50 ML IVPB SCH ×6 (03:41→20:02)
[2021-01-28] MEDS: LEVOTHYROXINE 75 MCG TAB PEG/G-TUBE SCH (05:58)
[2021-01-28] MEDS: BUDESONIDE 1 MG/2 ML NEBU INHALATION SCH ×2 (08:03→21:51)
[2021-01-28] MEDS: ASPIRIN 81 MG PEG/G-TUBE SCH (08:04)
[2021-01-28] MEDS: METOPROLOL TARTRATE 12.5 MG TAB PEG/G-TUBE SCH ×2 (08:04→21:41)
[2021-01-28] MEDS: FAMOTIDINE 20 MG TAB PEG/G-TUBE SCH ×2 (08:04→21:42)
[2021-01-28] MEDS: BACLOFEN 10 MG TAB PEG/G-TUBE SCH (08:05)
[2021-01-28] MEDS: AMIODARONE 200 MG TAB PEG/G-TUBE SCH (08:05)
[2021-01-28] MEDS: APIXABAN 5 MG TAB PEG/G-TUBE SCH ×2 (08:05→21:42)
[2021-01-28] MEDS: FUROSEMIDE 10 MG/ML 4 ML VIAL IV SCH (08:05)
[2021-01-28] MEDS: levETIRAcetam ORAL SOLN 500 MG/5 ML CUP PEG/G-TUBE SCH ×2 (08:06→21:41)
[2021-01-28] MEDS: polyethylene glycoL 3350 17 GM POWD.PACK PEG/G-TUBE SCH (08:06)
[2021-01-28] MEDS: FERROUS SULFATE ORAL ELIXIR 300 MG/5 ML CUP PEG/G-TUBE SCH (08:07)
[2021-01-28 10:38] LABS: Basophils # (A) 0.01 X 10*3/uL (0.00-0.10); Basophils % (A) 0.1 %; Eosinophils # (A) 0 X 10*3/uL (0.04-0.35); Eosinophils % (A) 0 %; HCT 25.9 % (37.2-46.3); HGB 8.4 g/dL (12.0-15.0); Lymphocytes % (A) 3.4 %; MCH 30.4 pg (27.0-32.0); MCHC 32.4 g/dL (32.0-37.0); MCV 93.8 fL (80.0-97.0); Mean Platelet Volume 11.1 fL (9.5-12.2); Monocytes # (A) 1.56 X 10*3/uL (0.20-1.00); Monocytes % (A) 13.3 %; Neutrophils # (A) 9.54 X 10*3/uL (1.80-7.70); Neutrophils % (A) 81.3 %; Platelet Count 319 X 10*3/uL (140-440); RBC 2.76 X 10*6/uL (4.10-5.20); RDW 14.5 % (11.5-14.5); WBC 11.73 X 10*3/uL (4.50-10.00)
[2021-01-28 10:47] LABS: African American GFR (CKD) 60.2 (60.0-200.0); Anion Gap 9.8 mmol/L (4.00-12.00); BUN/Creat Ratio 51.82 Ratio (12.00-20.00); Carbon Dioxide 34.2 mmol/L (21.6-31.8); Non-African American GFR(CKD) 51.9 (60.0-200.0); Potassium 3.7 mmol/L (3.5-5.5)
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
[2021-01-28] MEDS: SCOPOLAMINE 1.5MG/72HR PATCH TRANSDERM SCH (13:35)
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
[2021-01-28] MEDS: ACETAMINOPHEN TAB 325 MG TAB PO PRN (20:02)
[2021-01-28] MEDS: IBUPROFEN 400 MG TAB PO PRN (22:33)
[2021-01-29] MEDS: methylPREDNISolone SOD SUCCI 40 MG/ML 1 ML VIAL IV SCH ×4 (01:09→23:25)
[2021-01-29] MEDS: ALBUTEROL NEBULIZED 2.5 MG/3 ML INHALATION SCH ×7 (01:24→23:36)
[2021-01-29] MEDS: CLINDAMYCIN 600 MG in DEXTROSE 5% IN WATER 50 ML IVPB SCH ×6 (02:05→19:44)
[2021-01-29] MEDS: ACETAMINOPHEN TAB 325 MG TAB PO PRN (05:31)
[2021-01-29] MEDS: LEVOTHYROXINE 75 MCG TAB PEG/G-TUBE SCH (05:31)
--- NOTE | 2021-01-29 08:12 | XR ---
EXAMINATION TYPE: XR chest 1V portable DATE OF EXAM: 01/29/2021 COMPARISON: 01/27/2021 HISTORY: Cough TECHNIQUE: Single frontal view of the chest is obtained. FINDINGS: Left-sided consolidation and pleural effusion stable. No pneumothorax. Heart size normal. Subsegmental changes involving the right lung stable. Atherosclerotic change aorta. Arthropathy of th e right AC joint. IMPRESSION: 1. Left-sided infiltrate and pleural effusion stable.
[2021-01-29] MEDS ORDERED: FUROSEMIDE 10 MG/ML 2 ML VIAL IV SCH (09:00)
[2021-01-29] MEDS: BACLOFEN 10 MG TAB PEG/G-TUBE SCH (09:01)
[2021-01-29] MEDS: APIXABAN 5 MG TAB PEG/G-TUBE SCH ×2 (09:01→19:55)
[2021-01-29] MEDS: polyethylene glycoL 3350 17 GM POWD.PACK PEG/G-TUBE SCH (09:01)
[2021-01-29] MEDS: AMIODARONE 200 MG TAB PEG/G-TUBE SCH (09:01)
[2021-01-29] MEDS: ASPIRIN 81 MG PEG/G-TUBE SCH (09:02)
[2021-01-29] MEDS: FERROUS SULFATE ORAL ELIXIR 300 MG/5 ML CUP PEG/G-TUBE SCH (09:02)
[2021-01-29] MEDS: levETIRAcetam ORAL SOLN 500 MG/5 ML CUP PEG/G-TUBE SCH ×2 (09:02→19:55)
[2021-01-29] MEDS: FAMOTIDINE 20 MG TAB PEG/G-TUBE SCH (09:02)
[2021-01-29] MEDS: METOPROLOL TARTRATE 12.5 MG TAB PEG/G-TUBE SCH ×2 (09:02→19:55)
[2021-01-29] MEDS: BUDESONIDE 1 MG/2 ML NEBU INHALATION SCH ×2 (09:20→19:02)
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
[2021-01-29] MEDS: LORATADINE 10 MG TAB PO SCH ×2 (13:42→19:55)
[2021-01-29 13:57] LABS: African American GFR (CKD) 54.2 (60.0-200.0); Anion Gap 15.4 mmol/L (4.00-12.00); BUN/Creat Ratio 54.17 Ratio (12.00-20.00); Calcium 9.1 mg/dL (8.7-10.3); Carbon Dioxide 30.6 mmol/L (21.6-31.8); Non-African American GFR(CKD) 46.7 (60.0-200.0); Potassium 3.9 mmol/L (3.5-5.5)
[2021-01-29] MEDS: IBUPROFEN 400 MG TAB PO PRN (19:54)
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
[2021-01-30] MEDS: CLINDAMYCIN 600 MG in DEXTROSE 5% IN WATER 50 ML IVPB SCH ×6 (02:01→17:52)
[2021-01-30] MEDS: ALBUTEROL NEBULIZED 2.5 MG/3 ML INHALATION SCH ×5 (03:29→21:06)
[2021-01-30] MEDS: LEVOTHYROXINE 75 MCG TAB PEG/G-TUBE SCH (05:18)
[2021-01-30] MEDS: BUDESONIDE 1 MG/2 ML NEBU INHALATION SCH ×2 (07:06→21:06)
[2021-01-30 08:06] LABS: African American GFR (CKD) 74 (>60 ml/min/1.73 sqM); Anion Gap 8 mmol/L; Blood Urea Nitrogen 62 mg/dL (7-17); Calcium 9.5 mg/dL (8.4-10.2); Carbon Dioxide 37 mmol/L (22-30); Chloride 106 mmol/L (98-107); Glucose 122 mg/dL (74-99); Non-African American GFR(CKD) 64 (>60 ml/min/1.73 sqM); Potassium 4.3 mmol/L (3.5-5.1); Sodium 151 mmol/L (137-145)
[2021-01-30] MEDS: polyethylene glycoL 3350 17 GM POWD.PACK PEG/G-TUBE SCH (08:21)
[2021-01-30] MEDS: METOPROLOL TARTRATE 12.5 MG TAB PEG/G-TUBE SCH ×2 (08:21→20:52)
[2021-01-30] MEDS: ASPIRIN 81 MG PEG/G-TUBE SCH (08:21)
[2021-01-30] MEDS: FAMOTIDINE 20 MG TAB PEG/G-TUBE SCH (08:22)
[2021-01-30] MEDS: APIXABAN 5 MG TAB PEG/G-TUBE SCH ×2 (08:22→20:52)
[2021-01-30] MEDS: AMIODARONE 200 MG TAB PEG/G-TUBE SCH (08:22)
[2021-01-30] MEDS: BACLOFEN 10 MG TAB PEG/G-TUBE SCH (08:22)
[2021-01-30] MEDS: methylPREDNISolone SOD SUCCI 40 MG/ML 1 ML VIAL IV SCH ×2 (08:23→17:53)
[2021-01-30] MEDS: IBUPROFEN 400 MG TAB PO PRN (08:26)
[2021-01-30] MEDS: FERROUS SULFATE ORAL ELIXIR 300 MG/5 ML CUP PEG/G-TUBE SCH (08:27)
[2021-01-30] MEDS: levETIRAcetam ORAL SOLN 500 MG/5 ML CUP PEG/G-TUBE SCH ×2 (08:28→20:52)
[2021-01-30] MEDS: LORATADINE 10 MG TAB PO SCH ×2 (08:28→20:52)
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
[2021-01-30] MEDS: DEXTROSE 5%-0.45% NACL 1,000 ML IV SCH (17:53)
[2021-01-31] MEDS: methylPREDNISolone SOD SUCCI 40 MG/ML 1 ML VIAL IV SCH ×3 (00:05→16:35)
[2021-01-31] MEDS: ALBUTEROL NEBULIZED 2.5 MG/3 ML INHALATION SCH ×6 (00:50→19:51)
[2021-01-31] MEDS: CLINDAMYCIN 600 MG in DEXTROSE 5% IN WATER 50 ML IVPB SCH ×6 (03:14→19:38)
[2021-01-31 05:14] LABS: African American GFR (CKD) 72 (>60 ml/min/1.73 sqM); Blood Urea Nitrogen 56 mg/dL (7-17); Calcium 9.6 mg/dL (8.4-10.2); Chloride 111 mmol/L (98-107); Glucose 168 mg/dL (74-99); Non-African American GFR(CKD) 63 (>60 ml/min/1.73 sqM); Potassium 4.2 mmol/L (3.5-5.1); Sodium 156 mmol/L (137-145)
[2021-01-31 05:20] LABS: Anion Gap 8 mmol/L
[2021-01-31 05:22] LABS: Carbon Dioxide 37 mmol/L (22-30)
[2021-01-31] MEDS: DEXTROSE 5%-0.45% NACL 1,000 ML IV SCH ×2 (05:34→20:03)
[2021-01-31] MEDS: LEVOTHYROXINE 75 MCG TAB PEG/G-TUBE SCH (06:03)
[2021-01-31] MEDS: BUDESONIDE 1 MG/2 ML NEBU INHALATION SCH ×2 (08:01→19:52)
[2021-01-31] MEDS: BACLOFEN 10 MG TAB PEG/G-TUBE SCH (09:26)
[2021-01-31] MEDS: ASPIRIN 81 MG PEG/G-TUBE SCH (09:27)
[2021-01-31] MEDS: METOPROLOL TARTRATE 12.5 MG TAB PEG/G-TUBE SCH ×2 (09:27→19:39)
[2021-01-31] MEDS: FAMOTIDINE 20 MG TAB PEG/G-TUBE SCH (09:27)
[2021-01-31] MEDS: AMIODARONE 200 MG TAB PEG/G-TUBE SCH (09:27)
[2021-01-31] MEDS: LORATADINE 10 MG TAB PO SCH ×2 (09:27→19:39)
[2021-01-31] MEDS: APIXABAN 5 MG TAB PEG/G-TUBE SCH ×2 (09:28→19:38)
[2021-01-31] MEDS: levETIRAcetam ORAL SOLN 500 MG/5 ML CUP PEG/G-TUBE SCH ×2 (09:29→19:38)
[2021-01-31] MEDS: FERROUS SULFATE ORAL ELIXIR 300 MG/5 ML CUP PEG/G-TUBE SCH (09:29)
[2021-01-31] MEDS: polyethylene glycoL 3350 17 GM POWD.PACK PEG/G-TUBE SCH (10:50)
[2021-01-31] MEDS: SCOPOLAMINE 1.5MG/72HR PATCH TRANSDERM SCH (14:20)
[2021-01-31] MEDS: ACETAMINOPHEN TAB 325 MG TAB PO PRN (14:20)
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
[2021-01-31] MEDS: predniSONE 20 MG TAB PO SCH (22:10)
[2021-02-01] MEDS: ALBUTEROL NEBULIZED 2.5 MG/3 ML INHALATION SCH ×6 (00:51→20:23)
[2021-02-01] MEDS: CLINDAMYCIN 600 MG in DEXTROSE 5% IN WATER 50 ML IVPB SCH ×6 (02:06→19:45)
[2021-02-01] MEDS: LEVOTHYROXINE 75 MCG TAB PEG/G-TUBE SCH (05:29)
[2021-02-01] MEDS: BUDESONIDE 1 MG/2 ML NEBU INHALATION SCH ×2 (07:29→20:25)
--- NOTE | 2021-02-01 08:00 | XR ---
EXAMINATION TYPE: XR chest 1V portable DATE OF EXAM: 02/01/2021 COMPARISON: 01/29/2021 INDICATION: Follow-up pneumonia TECHNIQUE: Single frontal view of the chest is obtained. FINDINGS: The heart size is enlarged. The pulmonary vasculature is normal. There appears to be some increasing right lower lobe opacity. The large left basilar opacity remains present. IMPRESSION: 1. There may be some developing infiltrate at the right base. 2. Stable appearance of the left lung opacity. Continued follow-up is recommended
[2021-02-01] MEDS: AMIODARONE 200 MG TAB PEG/G-TUBE SCH ×2 (08:06→08:07)
[2021-02-01] MEDS: FAMOTIDINE 20 MG TAB PEG/G-TUBE SCH ×2 (08:06→21:32)
[2021-02-01] MEDS: predniSONE 20 MG TAB PO SCH (08:06)
[2021-02-01] MEDS: BACLOFEN 10 MG TAB PEG/G-TUBE SCH (08:06)
[2021-02-01] MEDS: ASPIRIN 81 MG PEG/G-TUBE SCH (08:06)
[2021-02-01] MEDS: METOPROLOL TARTRATE 12.5 MG TAB PEG/G-TUBE SCH ×2 (08:06→21:33)
[2021-02-01] MEDS: levETIRAcetam ORAL SOLN 500 MG/5 ML CUP PEG/G-TUBE SCH ×2 (08:07→21:34)
[2021-02-01] MEDS: APIXABAN 5 MG TAB PEG/G-TUBE SCH ×2 (08:07→21:33)
[2021-02-01] MEDS: FERROUS SULFATE ORAL ELIXIR 300 MG/5 ML CUP PEG/G-TUBE SCH (08:07)
[2021-02-01] MEDS: LORATADINE 10 MG TAB PO SCH ×2 (08:07→21:32)
[2021-02-01 08:44] LABS: African American GFR (CKD) >90 (>60 ml/min/1.73 sqM); Anion Gap 6 mmol/L; Blood Urea Nitrogen 53 mg/dL (7-17); Calcium 9.4 mg/dL (8.4-10.2); Carbon Dioxide 34 mmol/L (22-30); Chloride 111 mmol/L (98-107); Glucose 172 mg/dL (74-99); Non-African American GFR(CKD) >90 (>60 ml/min/1.73 sqM); Potassium 3.5 mmol/L (3.5-5.1); Sodium 151 mmol/L (137-145)
--- NOTE | 2021-02-01 11:55 | P.PN ---
Subjective Progress Note Date: 02/01/21 Principal diagnosis: PEG tube malfunction Patient has a balloon gastrostomy in place. There was some increased drainage noted. We were consulted. Minimal drainage at this time. Objective - Vital Signs Vital signs: Vital Signs Temp 97.9 F 02/01/21 08:00 Pulse 82 02/01/21 11:33 Resp 18 02/01/21 08:00 BP 147/61 02/01/21 08:00 Pulse Ox 99 02/01/21 08:00 Intake & Output 01/31/21 02/01/21 02/01/21 18:59 06:59 18:59 Weight 49.5 kg Other: Voiding Method Diaper Diaper External Catheter External Catheter # Voids 3 # Bowel Movements 1 1 - Exam Abdomen: Soft, nondistended, minimal drainage at the catheter site, bolster was quite loose and it was tightened - Labs CBC & Chem 7: 01/28/21 06:32 02/01/21 07:58 Labs: Abnormal Lab Results - Last 24 Hours (Table) 02/01/21 Range/Units 07:58 Sodium 151 H (137-145) mmol/L Chloride 111 H (98-107) mmol/L Carbon Dioxide 34 H (22-30) mmol/L BUN 53 H (7-17) mg/dL Glucose 172 H (74-99) mg/dL Microbiology - Last 24 Hours (Table) 01/25/21 10:35 Blood Culture - Final Blood No Growth after 144 hours 01/25/21 10:25 Blood Culture - Final Blood No Growth after 144 hours Assessment and Plan (1) PEG tube malfunction Narrative/Plan: PEG tube evaluated. She is tolerating tube feeds at goal. No seen and drainage currently. Bolster was tightened somewhat. We'll follow. Current Visit: Yes Status: Acute Code(s): K94.23 - GASTROSTOMY MALFUNCTION SNOMED Code(s): 182266999
[2021-02-01] MEDS: DEXTROSE 5%-0.45% NACL 1,000 ML IV SCH ×2 (13:39→21:50)
[2021-02-01] MEDS: polyethylene glycoL 3350 17 GM POWD.PACK PEG/G-TUBE SCH (13:41)
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
[2021-02-01] MEDS: ACETAMINOPHEN TAB 325 MG TAB PO PRN (21:33)
[2021-02-02] MEDS: ALBUTEROL NEBULIZED 2.5 MG/3 ML INHALATION SCH ×8 (00:01→23:07)
[2021-02-02] MEDS: IBUPROFEN 400 MG TAB PO PRN (01:34)
[2021-02-02] MEDS: CLINDAMYCIN 600 MG in DEXTROSE 5% IN WATER 50 ML IVPB SCH ×4 (02:08→11:27)
[2021-02-02] MEDS: CHLORHEXIDINE GLUCONATE 15 ML CUP MUCOUS MEM SCH ×3 (02:08→22:59)
[2021-02-02] MEDS: LEVOTHYROXINE 75 MCG TAB PEG/G-TUBE SCH (05:38)
[2021-02-02 06:36] LABS: African American GFR (CKD) >90 (>60 ml/min/1.73 sqM); Anion Gap 4 mmol/L; Blood Urea Nitrogen 52 mg/dL (7-17); Carbon Dioxide 35 mmol/L (22-30); Chloride 111 mmol/L (98-107); Glucose 115 mg/dL (74-99); Non-African American GFR(CKD) >90 (>60 ml/min/1.73 sqM); Potassium 3.6 mmol/L (3.5-5.1); Sodium 150 mmol/L (137-145)
[2021-02-02] MEDS: predniSONE 20 MG TAB PO SCH (08:11)
[2021-02-02] MEDS: LORATADINE 10 MG TAB PO SCH ×2 (08:11→22:58)
[2021-02-02] MEDS: ASPIRIN 81 MG PEG/G-TUBE SCH (08:11)
[2021-02-02] MEDS: BACLOFEN 10 MG TAB PEG/G-TUBE SCH (08:12)
[2021-02-02] MEDS: APIXABAN 5 MG TAB PEG/G-TUBE SCH ×2 (08:12→22:58)
[2021-02-02] MEDS: METOPROLOL TARTRATE 12.5 MG TAB PEG/G-TUBE SCH ×2 (08:12→22:57)
[2021-02-02] MEDS: FAMOTIDINE 20 MG TAB PEG/G-TUBE SCH ×2 (08:12→22:58)
[2021-02-02] MEDS: polyethylene glycoL 3350 17 GM POWD.PACK PEG/G-TUBE SCH (08:20)
[2021-02-02] MEDS: levETIRAcetam ORAL SOLN 500 MG/5 ML CUP PEG/G-TUBE SCH ×2 (08:21→22:59)
[2021-02-02] MEDS: FERROUS SULFATE ORAL ELIXIR 300 MG/5 ML CUP PEG/G-TUBE SCH (08:21)
[2021-02-02 09:11] LABS: Basophils % (A) 0 %; Eosinophils % (A) 0 %; HCT 29.9 % (34.0-46.0); HGB 9.2 gm/dL (11.4-16.0); Hypochromasia Slight; Lymphocytes # (A) 0.6 k/uL (1.0-4.8); Lymphocytes % (A) 3 %; MCH 29.9 pg (25.0-35.0); MCHC 30.8 g/dL (31.0-37.0); Mean Platelet Volume 8.5; Monocytes # (A) 0.4 k/uL (0-1.0); Monocytes % (A) 3 %; Neutrophils # (A) 15.7 k/uL (1.3-7.7); Neutrophils % (A) 93 %; Platelet Count 219 k/uL (150-450); RBC 3.07 m/uL (3.80-5.40); RDW 14.9 % (11.5-15.5); WBC 16.9 k/uL (3.8-10.6)
[2021-02-02 09:12] LABS: MCV 97.1 fL (80.0-100.0)
[2021-02-02] MEDS: BUDESONIDE 1 MG/2 ML NEBU INHALATION SCH ×2 (09:22→19:43)
[2021-02-02] MEDS: DEXTROSE 5%-0.45% NACL 1,000 ML IV SCH (11:28)
--- NOTE | 2021-02-02 11:44 | P.PN ---
Subjective Progress Note Date: 02/02/21 Principal diagnosis: PEG tube malfunction Patient has had a small amount of drainage around the PEG tube site. Tolerating tube feeds at goal. No vomiting. Objective - Vital Signs Vital signs: Vital Signs Temp 99.5 F 02/02/21 07:31 Pulse 65 02/02/21 09:32 Resp 16 02/02/21 08:00 BP 107/64 02/02/21 07:31 Pulse Ox 98 02/02/21 07:31 Intake & Output 02/01/21 02/02/21 02/02/21 18:59 06:59 18:59 Weight 49.5 kg 54 kg Other: Voiding Method Diaper Diaper Diaper External Catheter External Catheter External Catheter - Exam Abdomen: Soft, nondistended, nontender, PEG tube in place, small amount of tube feed-like drainage around the site. Bolster was tightened. - Labs CBC & Chem 7: 02/02/21 05:35 02/02/21 05:37 Labs: Abnormal Lab Results - Last 24 Hours (Table) 02/02/21 02/02/21 Range/Units 05:35 05:37 WBC 16.9 H (3.8-10.6) k/uL RBC 3.07 L (3.80-5.40) m/uL Hgb 9.2 L (11.4-16.0) gm/dL Hct 29.9 L (34.0-46.0) % MCHC 30.8 L (31.0-37.0) g/dL Neutrophils # 15.7 H (1.3-7.7) k/uL Lymphocytes # 0.6 L (1.0-4.8) k/uL Sodium 150 H (137-145) mmol/L Chloride 111 H (98-107) mmol/L Carbon Dioxide 35 H (22-30) mmol/L BUN 52 H (7-17) mg/dL Glucose 115 H (74-99) mg/dL Assessment and Plan (1) PEG tube malfunction Narrative/Plan: Patient's PEG tube seems to be working appropriately. We'll sign off. Please call if needed. Current Visit: Yes Status: Acute Code(s): K94.23 - GASTROSTOMY MALFUNCTION SNOMED Code(s): 308416407
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
[2021-02-03] MEDS: ALBUTEROL NEBULIZED 2.5 MG/3 ML INHALATION SCH ×6 (03:36→23:50)
[2021-02-03 05:44] LABS: African American GFR (CKD) >90 (>60 ml/min/1.73 sqM); Anion Gap 6 mmol/L; Blood Urea Nitrogen 46 mg/dL (7-17); Calcium 8.9 mg/dL (8.4-10.2); Carbon Dioxide 29 mmol/L (22-30); Chloride 113 mmol/L (98-107); Glucose 104 mg/dL (74-99); Non-African American GFR(CKD) >90 (>60 ml/min/1.73 sqM); Potassium 3.9 mmol/L (3.5-5.1); Sodium 148 mmol/L (137-145)
[2021-02-03] MEDS: DEXTROSE 5%-0.45% NACL 1,000 ML IV SCH ×3 (06:05→20:32)
[2021-02-03] MEDS: LEVOTHYROXINE 75 MCG TAB PEG/G-TUBE SCH (06:15)
[2021-02-03] MEDS: AMIODARONE 200 MG TAB PEG/G-TUBE SCH (08:34)
[2021-02-03] MEDS: ASPIRIN 81 MG PEG/G-TUBE SCH (08:34)
[2021-02-03] MEDS: predniSONE 20 MG TAB PO SCH (08:34)
[2021-02-03] MEDS: LORATADINE 10 MG TAB PO SCH ×2 (08:35→20:31)
[2021-02-03] MEDS: APIXABAN 5 MG TAB PEG/G-TUBE SCH ×2 (08:35→20:31)
[2021-02-03] MEDS: BACLOFEN 10 MG TAB PEG/G-TUBE SCH (08:35)
[2021-02-03] MEDS: polyethylene glycoL 3350 17 GM POWD.PACK PEG/G-TUBE SCH (08:35)
[2021-02-03] MEDS: FAMOTIDINE 20 MG TAB PEG/G-TUBE SCH ×2 (08:35→20:31)
[2021-02-03] MEDS: METOPROLOL TARTRATE 12.5 MG TAB PEG/G-TUBE SCH ×2 (08:35→20:29)
[2021-02-03] MEDS: levETIRAcetam ORAL SOLN 500 MG/5 ML CUP PEG/G-TUBE SCH (08:36)
[2021-02-03] MEDS: CHLORHEXIDINE GLUCONATE 15 ML CUP MUCOUS MEM SCH (08:36)
[2021-02-03] MEDS: FERROUS SULFATE ORAL ELIXIR 300 MG/5 ML CUP PEG/G-TUBE SCH (08:36)
[2021-02-03] MEDS: BUDESONIDE 1 MG/2 ML NEBU INHALATION SCH ×2 (08:59→19:52)
--- NOTE | 2021-02-03 11:25 | P.PN ---
<Malu Roberts - Last Filed: 02/03/21 11:17> Subjective Progress Note Date: 02/03/21 CHIEF COMPLAINT: PEG tube malfunction HISTORY OF PRESENT ILLNESS: Surgical service is following regards to patient's PEG tube malfunction and patient had been having a small amount of drainage from PEG tube site. Patient's PEG tube had been working appropriately and she was tolerating tube feedings. Dr. Ordonez had signed off yesterday. We have been asked to reevaluate patient again today due to malfunctioning PEG tube. Apparently the tubing of the PEG tube has broken and it is leaking. Nursing staff does have it taped and patient is able to receive tube feedings at this point. No nausea or vomiting reported. Afebrile . Patient also hospitalized for asthma exacerbation and aspiration pneumonia PHYSICAL EXAM: VITAL SIGNS: Reviewed. GENERAL: Well-developed in no acute distress. HEENT: No sclera icterus. Extraocular movements grossly intact. Moist buccal mucosa. Head is atraumatic, normocephalic. ABDOMEN: Soft. Nondistended. Nontender. Patient has small amount of tube feed-like drainage around PEG tube site. There is leaking from the tubing mechanism ASSESSMENT: 1. PEG tube malfunction PLAN: -Further recommendations forthcoming per surgeon -Continue supportive care Physician Fire Investigation Lieutenant note has been reviewed by physician. Signing provider agrees with the documented findings, assessment, and plan of care. Objective - Vital Signs Vital signs: Vital Signs Temp 99.7 F H 02/03/21 07:18 Pulse 83 02/03/21 09:13 Resp 16 02/03/21 08:34 BP 136/98 02/03/21 07:18 Pulse Ox 93 L 02/03/21 01:42 Intake & Output 02/02/21 02/03/21 02/03/21 18:59 06:59 18:59 Weight 56.5 kg Other: Voiding Method Diaper Diaper Diaper External Catheter # Voids 1 1 - Labs CBC & Chem 7: 02/02/21 05:35 02/03/21 04:29 Labs: Abnormal Lab Results - Last 24 Hours (Table) 02/03/21 Range/Units 04:29 Sodium 148 H (137-145) mmol/L Chloride 113 H (98-107) mmol/L BUN 46 H (7-17) mg/dL Glucose 104 H (74-99) mg/dL <Clay Ordonez - Last Filed: 02/03/21 12:57> Subjective As above. Patient's catheter did break at the hub. The tip was cut and I was able to place the feeding adapter. This will need to be replaced. We'll scheduled for tomorrow. Discussed with her legal guardian. Objective - Vital Signs Vital signs: Vital Signs Temp 99.7 F H 02/03/21 07:18 Pulse 102 H 02/03/21 12:40 Resp 16 02/03/21 08:34 BP 136/98 02/03/21 07:18 Pulse Ox 93 L 02/03/21 01:42 Intake & Output 02/02/21 02/03/21 02/03/21 18:59 06:59 18:59 Weight 56.5 kg Other: Voiding Method Diaper Diaper Diaper External Catheter # Voids 1 1 - Labs CBC & Chem 7: 02/02/21 05:35 02/03/21 04:29 Labs: Abnormal Lab Results - Last 24 Hours (Table) 02/03/21 Range/Units 04:29 Sodium 148 H (137-145) mmol/L Chloride 113 H (98-107) mmol/L BUN 46 H (7-17) mg/dL Glucose 104 H (74-99) mg/dL Assessment and Plan (1) PEG tube malfunction Current Visit: Yes Status: Acute Code(s): K94.23 - GASTROSTOMY MALFUNCTION SNOMED Code(s): 033671225
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
[2021-02-04] MEDS: ALBUTEROL NEBULIZED 2.5 MG/3 ML INHALATION SCH ×5 (03:55→20:20)
[2021-02-04] MEDS: CHLORHEXIDINE GLUCONATE 15 ML CUP MUCOUS MEM SCH ×5 (04:32→20:12)
[2021-02-04] MEDS: levETIRAcetam ORAL SOLN 500 MG/5 ML CUP PEG/G-TUBE SCH ×3 (04:33→20:00)
[2021-02-04] MEDS: DEXTROSE 5%-0.45% NACL 1,000 ML IV SCH ×3 (04:34→23:46)
[2021-02-04] MEDS: LEVOTHYROXINE 75 MCG TAB PEG/G-TUBE SCH (06:15)
[2021-02-04] MEDS: FERROUS SULFATE ORAL ELIXIR 300 MG/5 ML CUP PEG/G-TUBE SCH (08:22)
[2021-02-04] MEDS: METOPROLOL TARTRATE 12.5 MG TAB PEG/G-TUBE SCH ×2 (08:23→19:58)
[2021-02-04] MEDS: ASPIRIN 81 MG PEG/G-TUBE SCH (08:23)
[2021-02-04] MEDS: FAMOTIDINE 20 MG TAB PEG/G-TUBE SCH ×2 (08:23→19:59)
[2021-02-04] MEDS: BACLOFEN 10 MG TAB PEG/G-TUBE SCH (08:23)
[2021-02-04] MEDS: APIXABAN 5 MG TAB PEG/G-TUBE SCH ×2 (08:23→19:59)
[2021-02-04] MEDS: AMIODARONE 200 MG TAB PEG/G-TUBE SCH (08:23)
[2021-02-04] MEDS: LORATADINE 10 MG TAB PO SCH ×2 (08:23→19:59)
[2021-02-04] MEDS: polyethylene glycoL 3350 17 GM POWD.PACK PEG/G-TUBE SCH (08:24)
[2021-02-04] MEDS: predniSONE 20 MG TAB PO SCH (08:25)
[2021-02-04 08:53] LABS: African American GFR (CKD) >90 (>60 ml/min/1.73 sqM); Anion Gap 5 mmol/L; Blood Urea Nitrogen 54 mg/dL (7-17); Calcium 9.1 mg/dL (8.4-10.2); Carbon Dioxide 27 mmol/L (22-30); Chloride 118 mmol/L (98-107); Glucose 95 mg/dL (74-99); Non-African American GFR(CKD) 89 (>60 ml/min/1.73 sqM); Sodium 150 mmol/L (137-145)
[2021-02-04] MEDS: BUDESONIDE 1 MG/2 ML NEBU INHALATION SCH ×2 (08:56→20:21)
[2021-02-04 08:58] LABS: Potassium 4.6 mmol/L (3.5-5.1)
[2021-02-04 09:27] LABS: Basophils % (A) 0 %; Eosinophils % (A) 0 %; HCT 30.4 % (34.0-46.0); HGB 9.8 gm/dL (11.4-16.0); Lymphocytes # (A) 0.4 k/uL (1.0-4.8); Lymphocytes % (A) 2 %; MCH 30.9 pg (25.0-35.0); MCHC 32.1 g/dL (31.0-37.0); MCV 96.1 fL (80.0-100.0); Mean Platelet Volume 11.4; Monocytes # (A) 0.7 k/uL (0-1.0); Monocytes % (A) 4 %; Neutrophils # (A) 17.4 k/uL (1.3-7.7); Neutrophils % (A) 93 %; Platelet Count 166 k/uL (150-450); RBC 3.16 m/uL (3.80-5.40); WBC 18.7 k/uL (3.8-10.6)
[2021-02-04] MEDS ORDERED: PROPOFOL 10 MG/ML 20 ML VIAL IV ONE (12:47)
[2021-02-04] MEDS ORDERED: SODIUM CHLORIDE 0.9% 500 ML 500 ML IV ONE (12:52)
--- NOTE | 2021-02-04 13:06 | P.PCN ---
Date of Procedure: 02/04/21 Procedure(s) Performed: PREOPERATIVE DIAGNOSIS: Malfunctioning gastrostomy tube POSTOPERATIVE DIAGNOSIS: Same PROCEDURE: EGD with PEG tube replacement SURGEON: José Luis EBL: Minimal ANESTHESIA: Sedation COMPLICATIONS: None OPERATIVE PROCEDURE: The patient was placed in the supine position on the endoscopy table. The patient was sedated per anesthesia that time. The previous gastrostomy tube was removed. A new 20-Sudanese Ponsky replacement tube was advanced without difficulty. The Olympus gastroscope was inserted into the oropharynx and passed under direct visualization to the mid aspect of the stomach. I could visualize the gastrostomy in place. The patient had some bilious material within the stomach that was partially evacuated. Could not visualize the mucosa well. Duodenum was not inspected. Esophagus appeared free of any significant inflammatory changes or neoplastic changes. Scope was withdrawn. DISPOSITION: Stable to recovery room
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
[2021-02-04] MEDS: ACETAMINOPHEN TAB 325 MG TAB PO PRN (20:06)
[2021-02-05] MEDS: ALBUTEROL NEBULIZED 2.5 MG/3 ML INHALATION SCH ×5 (01:02→12:16)
[2021-02-05] MEDS: ACETAMINOPHEN TAB 325 MG TAB PO PRN (02:46)
[2021-02-05] MEDS: IBUPROFEN 400 MG TAB PO PRN (05:34)
[2021-02-05] MEDS: LEVOTHYROXINE 75 MCG TAB PEG/G-TUBE SCH (05:34)
[2021-02-05 07:34] VITALS: BP 124/83; RESP 21; TEMP 98.8
[2021-02-05] MEDS: AMIODARONE 200 MG TAB PEG/G-TUBE SCH (07:43)
[2021-02-05] MEDS: LORATADINE 10 MG TAB PO SCH (07:43)
[2021-02-05] MEDS: BACLOFEN 10 MG TAB PEG/G-TUBE SCH (07:44)
[2021-02-05] MEDS: FAMOTIDINE 20 MG TAB PEG/G-TUBE SCH (07:44)
[2021-02-05] MEDS: ASPIRIN 81 MG PEG/G-TUBE SCH (07:44)
[2021-02-05] MEDS: METOPROLOL TARTRATE 12.5 MG TAB PEG/G-TUBE SCH (07:44)
[2021-02-05] MEDS: APIXABAN 5 MG TAB PEG/G-TUBE SCH (07:45)
[2021-02-05] MEDS: polyethylene glycoL 3350 17 GM POWD.PACK PEG/G-TUBE SCH (07:45)
[2021-02-05] MEDS: DEXTROSE 5%-0.45% NACL 1,000 ML IV SCH (07:46)
[2021-02-05] MEDS: FERROUS SULFATE ORAL ELIXIR 300 MG/5 ML CUP PEG/G-TUBE SCH (07:47)
[2021-02-05] MEDS: levETIRAcetam ORAL SOLN 500 MG/5 ML CUP PEG/G-TUBE SCH (07:47)
[2021-02-05] MEDS: BUDESONIDE 1 MG/2 ML NEBU INHALATION SCH (08:25)
[2021-02-05] MEDS ORDERED: predniSONE 10 MG TAB PO SCH (09:00)
[2021-02-05 09:05] LABS: African American GFR (CKD) 82 (>60 ml/min/1.73 sqM); Anion Gap 4 mmol/L; Blood Urea Nitrogen 49 mg/dL (7-17); Calcium 8.7 mg/dL (8.4-10.2); Carbon Dioxide 28 mmol/L (22-30); Chloride 118 mmol/L (98-107); Glucose 145 mg/dL (74-99); Non-African American GFR(CKD) 71 (>60 ml/min/1.73 sqM); Potassium 3.7 mmol/L (3.5-5.1); Sodium 150 mmol/L (137-145)
--- NOTE | 2021-02-05 09:31 | P.PN ---
Subjective Progress Note Date: 02/05/21 Principal diagnosis: PEG tube malfunction No obvious issues. Catheter was not used yesterday apparently. They're starting tube feeds this morning. Objective - Vital Signs Vital signs: Vital Signs Temp 98.8 F 02/05/21 07:33 Pulse 82 02/05/21 08:29 Resp 21 02/05/21 08:00 BP 124/83 02/05/21 07:33 Pulse Ox 97 02/05/21 08:29 Intake & Output 02/04/21 02/05/21 02/05/21 18:59 06:59 18:59 Intake Total 150 Balance 150 Weight 53.5 kg Intake: IV 150 Other: Voiding Method Diaper Diaper Diaper # Voids 4 1 # Bowel Movements 1 - Exam Abdomen: Soft, nondistended, catheter in place, nontender - Labs CBC & Chem 7: 02/04/21 07:40 02/05/21 08:01 Labs: Abnormal Lab Results - Last 24 Hours (Table) 02/05/21 Range/Units 08:01 Sodium 150 H (137-145) mmol/L Chloride 118 H (98-107) mmol/L BUN 49 H (7-17) mg/dL Glucose 145 H (74-99) mg/dL Assessment and Plan (1) PEG tube malfunction Narrative/Plan: May resume tube feeds at goal. We'll sign off. Call if needed. Current Visit: Yes Status: Acute Code(s): K94.23 - GASTROSTOMY MALFUNCTION SNOMED Code(s): 098988781
[2021-02-05 12:31] VITALS: PULSE 92
[2021-02-05 13:08] VITALS: BMI 20.9
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
== END 2021-02-05 14:30 | disposition home or self-care (01) | DRG 177 ==
LOC: EC 10:10 → 4SSUR 12:53
PROVIDERS: ADMIT Hospitalist; ATTEND Hospitalist
PROC: 3E0G76Z Introduction of Nutritional Substance into Upper GI, Via Natural or Artificial Opening (ICD-10-PCS; principal; 2021-02-04 13:00)
PROC: 0DH63UZ Insertion of Feeding Device into Stomach, Percutaneous Approach (ICD-10-PCS; principal; 2021-02-04 13:00)
DX: J69.0 Pneumonitis due to inhalation of food and vomit (principal); J96.21 Acute and chronic respiratory failure with hypoxia; G82.50 Quadriplegia, unspecified; G93.41 Metabolic encephalopathy; J98.11 Atelectasis; E87.0 Hyperosmolality and hypernatremia; I25.3 Aneurysm of heart; I50.42 Chronic combined systolic (congestive) and diastolic (congestive) heart failure; J45.21 Mild intermittent asthma with (acute) exacerbation; Z43.1 Encounter for attention to gastrostomy; I11.0 Hypertensive heart disease with heart failure; R13.10 Dysphagia, unspecified; F03.90 Unspecified dementia, unspecified severity, without behavioral disturbance, psychotic disturbance, mood disturbance, and anxiety; R47.02 Dysphasia; E03.9 Hypothyroidism, unspecified; R47.1 Dysarthria and anarthria; Z99.81 Dependence on supplemental oxygen; T50.1X5A Adverse effect of loop [high-ceiling] diuretics, initial encounter; I35.0 Nonrheumatic aortic (valve) stenosis; G40.909 Epilepsy, unspecified, not intractable, without status epilepticus; Z20.822 Contact with and (suspected) exposure to COVID-19; F79 Unspecified intellectual disabilities; V89.2XXS Person injured in unspecified motor-vehicle accident, traffic, sequela; I25.10 Atherosclerotic heart disease of native coronary artery without angina pectoris; Z87.820 Personal history of traumatic brain injury; I25.2 Old myocardial infarction; I48.0 Paroxysmal atrial fibrillation; G24.9 Dystonia, unspecified; Z79.01 Long term (current) use of anticoagulants; Z79.82 Long term (current) use of aspirin; Z79.899 Other long term (current) drug therapy; Z82.49 Family history of ischemic heart disease and other diseases of the circulatory system; Z87.440 Personal history of urinary (tract) infections; Z99.3 Dependence on wheelchair; Z87.01 Personal history of pneumonia (recurrent); R32 Unspecified urinary incontinence; R15.9 Full incontinence of feces; Z83.52 Family history of ear disorders; Z88.0 Allergy status to penicillin; Z71.3 Dietary counseling and surveillance
CPT/HCPCS: 36415; 43246; 71045; 80048; 80053; 83605; 83735; 83880; 84145; 84484; 85025; 85610; 85730; 87040; 87070; 87077; 87186; 87205; 87635; 93005; 94640; 94660; 94760; 94762; 96374; 96375; 99285